=== PATIENT | male | born 1955 | race Caucasian/White ===

== ENCOUNTER 2023-08-24 12:54 | Inpatient (IN) | payer MEDICARE, MEDICAID, SELFPAY ==
[2023-08-24] VITALS (8 sets, daily range): BP systolic 130–151; BP diastolic 62–90; PULSE 65–90; RESP 17–19; TEMP 36.3–37; O2SAT 96–100; BMI 24.4; BMI 21.9
--- NOTE | 2023-08-24 13:00 | ECG_ITS ---
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 Measurements Intervals Armstrong Rate: 85 P: 69 IA: 159 QRS: -23 QRSD: 93 T: 70 QT: 344 QTc: 410 Interpretive Statements SINUS RHYTHM POSSIBLE LEFT ATRIAL ENLARGEMENT [-0.1mV P-WAVE IN V1/V2] SEPTAL MYOCARDIAL INFARCTION , OF INDETERMINATE AGE [40+ ms Q WAVE IN V1/V2] No previous ECG available for comparison Electronically Signed On 08-24-2023 13:17:09 ADVENTURE GUIDE by Noe Sales M.D. [email or web address]
--- NOTE | 2023-08-24 13:00 | XRR_ITS ---
PROCEDURE INFORMATION: Exam: XR Chest Exam date and time: 08/24/2023 1:11 PM Age: 68 years old Clinical indication: Cough; Additional info: Dyspnea/cough TECHNIQUE: Imaging protocol: Radiologic exam of the chest. Views: 1 view. COMPARISON: No relevant prior studies available. FINDINGS: Lungs: Unremarkable. No consolidation. Pleural spaces: Unremarkable. No pleural effusion. No pneumothorax. Heart/Mediastinum: Unremarkable. No cardiomegaly. Bones/joints: Unremarkable. XR/XR chest 1V portable [id number] IMPRESSION: No acute findings.
--- NOTE | 2023-08-24 13:17 | W.ED.EXTPRO ---
HPI - Extremity Problem General: Chief complaint: Extremity Problem,Nontraumatic Stated complaint: possible infection on feet Time Seen by Provider: 08/24/23 12:59 Source: patient Mode of arrival: ambulatory History of Present Illness: 68-year-old male with a history of diabetes mellitus and previous and trans metatarsal amputation of the right foot which was recent presents emergency room with a left third toe ulceration with foul-smelling drainage and gangrenous appearing changes. This he had his previous amputation at [facility] he was not able to get a hold of the doctor there and presented here. He also has open ulcers on the sole of the toe and on his right great foot. Unable to bear weight on the left foot due to discomfort. Denies chest pain or shortness of breath MD Complaint: extremity pain Onset (ago): day(s) Pain Consistency: constant Location: left and toe Relieving factors: immobilization and elevation Exacerbating factors: weight bearing Associated symptoms: Deny chest pain, fever(s) or rash Context: recent surgery/procedure Review of Systems Const: Reports: fatigue and malaise; Denies: fever(s) or chills Card: Denies: chest pain Resp: Denies: dyspnea GI: Denies: abdominal pain, nausea or vomiting : Denies: dysuria, urinary frequency or urinary urgency Musc: Denies: neck pain or back pain Skin/Breast: Denies: rash PFSH ED PFSH: Medical History Diabetes Partial nontraumatic amputation of foot R trans metatarsal amputation Physical Exam Const: GENERAL APPEARANCE: cooperative and comfortable ORIENTATION/CONSCIOUSNESS: Yes awake, Yes oriented to person, Yes oriented to place and Yes oriented to time HENMT: COMMON NORMALS: normocephalic, atraumatic and hearing grossly normal bilaterally HEAD & SCALP: normocephalic and atraumatic Resp: COMMON NORMALS: normal respiratory effort, No retractions, No use of accessory muscles and clear to auscultation bilaterally AUSCULTATION: clear to auscultation bilaterally Cardio: COMMON NORMALS: regular rate, regular rhythm and No murmurs present (Cardio) RATE: regular rate RHYTHM: regular rhythm GI: COMMON NORMALS: Soft to palpation and No hepatosplenomegaly present AUSCULTATION: Yes normoactive bowel sounds PALPATION: Yes Soft to palpation, No Tenderness to palpation present (GI), No Guarding due to palpation present (GI) and Yes No hepatosplenomegaly present Extremity: OTHER: Right foot with ulcers on the third toe the great toe Evicel with low-grade tumor in the second and third toes drainage with palpation gangrenous discoloration and apparent subcutaneous gas in the third toe Neuro: SENSORIUM/ORIENTATION: Yes oriented to person, Yes oriented to place and Yes oriented to time Skin: COMMON NORMALS: no rashes or lesions noted GENERAL SKIN EXAM: no rashes or lesions noted Course Vital Signs: Vital signs: Vital Signs Temperature 98.2 F 08/24/23 12:56 Pulse Rate 90 08/24/23 13:16 Respiratory Rate 18 08/24/23 13:16 Blood Pressure 151/90 08/24/23 13:16 Pulse Oximetry 99 08/24/23 13:16 Oxygen Delivery Me thod Room Air 08/24/23 13:16 MDM - Extremity (Nontraumatic) Medical Decision Making Gaseous changes of the third toe with some erosive changes on the third and fourth toes and somewhat on the second appear to be combination of chronic and acute. Discussed with podiatry they will come and see the patient at the bedside possible surgical debridement tomorrow. Admit to hospitalist. Medical Records I reviewed the patient's medical records. Lab Data I reviewed the patient's lab results. 08/24/23 14:05 08/24/23 14:05 Radiology Impressions Chest X-Ray 08/24/23 13:00 IMPRESSION: No acute findings. Foot X-Ray 08/24/23 13:34 IMPRESSION: No acute findings. ADDENDUM: 08/24/23 1422 The bones have a somewhat demineralized appearance particularly in the 3rd metatarsal head on the oblique view but no definite bony destruction is evident. There is a soft tissue gas bubble seen arm the dorsum of the forefoot on the lateral view. Laboratory Results WBC 10.28 10^3/uL (3.29-11.43) 08/24/23 14:05 RBC 4.37 10^6/uL (3.85-5.65) 08/24/23 14:05 Hgb 12.80 g/dL (11.27-16.99) 08/24/23 14:05 Hct 37.7 % (37-53) 08/24/23 14:05 MCV 86.3 fl (82-101) 08/24/23 14:05 MCH 29.3 pg (27-33) 08/24/23 14:05 MCHC 34.0 g/dL (30-55) 08/24/23 14:05 RDW 11.7 % (12.1-15.1) L 08/24/23 14:05 Plt Count 273 10^3/cmm (157-399) 08/24/23 14:05 MPV 9.3 fL (7.4-10.4) 08/24/23 14:05 Neut % (Auto) 83.8 % 08/24/23 14:05 Lymph % (Auto) 5.9 % 08/24/23 14:05 [place] % (Auto) 9.0 % 08/24/23 14:05 Eos % (Auto) 0.5 % 08/24/23 14:05 Baso % (Auto) 0.4 % 08/24/23 14:05 Neut # (Auto) 8.61 10^3/uL (1.8-7.7) H 08/24/23 14:05 Lymph # (Auto) 0.6 10^3/uL (0.8-4.8) L 08/24/23 14:05 [place] # (Auto) 0.9 10^3/uL (0.2-0.9) 08/24/23 14:05 Eos # (Auto) 0.1 10^3/uL (0.0-0.8) 08/24/23 14:05 Baso # (Auto) 0.0 10^3/uL (0.0-0.1) 08/24/23 14:05 Nucleated RBC % (auto) 0 % 08/24/23 14:05 Nucleated RBCs # 0.0 /100WBC 08/24/23 14:05 Sodium 129 mmol/L (136-145) L 08/24/23 14:05 Potassium 4.5 mmol/L (3.5-5.1) 08/24/23 14:05 Chloride 92 mmol/L (98-107) L 08/24/23 14:05 Carbon Dioxide 24 mmol/L (22-29) 08/24/23 14:05 Anion Gap 17.5 (5-19) 08/24/23 14:05 BUN 17 mg/dL (8-23) 08/24/23 14:05 Creatinine 0.9 mg/dL (0.7-1.2) 08/24/23 14:05 GFR Calculation 83.7 mL/min (90-130) L 08/24/23 14:05 Glucose 228 mg/dL (65-115) H 08/24/23 14:05 Calculated Osmolality 277 mOsm/kg (285-295) L 08/24/23 14:05 Lactic Acid 1.3 mmol/L (0.5-2.2) 08/24/23 14:05 Calcium 9.2 mg/dL (8.5-10.5) 08/24/23 14:05 Total Bilirubin 0.8 mg/dL (0.15-1.2) 08/24/23 14:05 AST 20 U/L (0-40) 08/24/23 14:05 ALT 15 U/L (0-41) 08/24/23 14:05 Alkaline Phosphatase 136 U/L (40-130) H 08/24/23 14:05 Total Protein 7.9 g/dL (6.6-8.7) 08/24/23 14:05 Albumin 3.5 g/dL (3.5-5.2) 08/24/23 14:05 Globulin 4.4 g/dL (1.3-4.6) 08/24/23 14:05 All radiology interpretation(s) finalized by discharge Discharge Plan Discharge Patient Disposition: Admitted As Inpatient Clinical Impression: Diabetic foot ulcer with osteomyelitis, Gangrenous toe Condition: Stable Referrals: Alex Ferris FNP [Family Provider] - Coding Level of Care Code ED Creative Services Specialist for Deanna Wilson
--- NOTE | 2023-08-24 13:34 | XRR_ITS ---
PROCEDURE INFORMATION: Exam: XR Right Foot Exam date and time: 08/24/2023 1:45 PM Age: 68 years old Clinical indication: Pain; Right; Prior surgery; Surgery date: 1-6 months; Surgery type: RT. Foot; Additional info: S/P transmetatarsal amputation TECHNIQUE: Imaging protocol: Radiologic exam of the right foot. Views: 3 or more views. COMPARISON: No relevant prior studies available. FINDINGS: Bones/joints: The patient has had transmetatarsal amputations at the distal 2/3 level. Acute a krishnan stumps are unremarkable in appearance. No abnormal soft tissue changes are evident. Remainder of the foot is unremarkable. Soft tissues: See Bones/joints finding. XR/XR foot RT min 3V* [id number] IMPRESSION: Unremarkable postoperative right foot.
--- NOTE | 2023-08-24 13:34 | XRR_ITS ---
PROCEDURE INFORMATION: Exam: XR Left Foot Exam date and time: 08/24/2023 1:43 PM Age: 68 years old Clinical indication: Pain; Foot; Left; Additional info: Gangrene/diabetic foot ulcer TECHNIQUE: Imaging protocol: Radiologic exam of the left foot. Views: 3 or more views. COMPARISON: No relevant prior studies available. FINDINGS: Bones/joints: No evidence for osteomyelitis or other acute osseous or joint abnormality. Joint spaces are unremarkable. Soft tissues: Normal. XR/XR foot LT min 3V* [id number] IMPRESSION: No acute findings.
[2023-08-24 14:16] LABS: Basophils % 0.4 %; Eosinophils # 0.1 10^3/uL (0.0-0.8); Eosinophils % 0.5 %; Hematocrit 37.7 % (37-53); Lymphocytes # 0.6 10^3/uL (0.8-4.8); Lymphocytes % 5.9 %; Mean Corpuscular Hemoglobin 29.3 pg (27-33); Mean Corpuscular Volume 86.3 fl (82-101); Mean Platelet Volume 9.3 fL (7.4-10.4); Monocytes # 0.9 10^3/uL (0.2-0.9); Neutrophils # 8.61 10^3/uL (1.8-7.7); Neutrophils % 83.8 %; Nucleated Red Blood Cells % 0 %; Platelet Count 273 10^3/cmm (157-399); Red Blood Count 4.37 10^6/uL (3.85-5.65); Red Cell Distribution Width 11.7 % (12.1-15.1); White Blood Count 10.28 10^3/uL (3.29-11.43)
[2023-08-24] MEDS: vancomycin 1,000 MG in sodium chloride 0.9% 250 ML 250 MG IV (14:33)
--- NOTE | 2023-08-24 14:35 | PM.CONSULT ---
Providers/Reason For Consult Consulting Physician/Specialty*: Anthony Fajardo D.P.M. Reason for Consult*: Gangrene left foot History of Present Illness History of Present Illness David Honeycutt is a 68 year old diabetic male presents to the emergency room with gangrene left foot. He reports worsening of his left foot infection starting on August 18, he became more concerned today and his sister brought him to the emergency department due to redness and foul odor. Patient has a extensive history of diabetic foot infections. He had a recent hospitalization at [facility] in [facility] and was discharged home last week after a right transmetatarsal amputation secondary to diabetic foot infection. He reports his first toe amputation was on the right foot and this occurred in 2017. Patient endorses significant peripheral neuropathy, endorses numbness at both feet. He states that his diabetes is well-controlled, per his report his last A1c was recent and it was 6.9. He has had hospitalizations at [facility] and [facility] within the past month. Will require records request from both facilities. He is unsure of vascular studies being performed. Patient denies tobacco use, states that last time he smoked was in 1970s. Patient denies any subjective nausea, vomiting, fever, chills, shortness of breath or chest pain. Review of Systems General: Reports: 10 or more systems reviewed and unremarkable except in HPI and below Const: Denies: fever(s) or chills Eyes: Denies: change in vision Card: Denies: chest pain or palpitations Resp: Denies: dyspnea or productive cough GI: Denies: abdominal pain, nausea or vomiting : Denies: flank pain Musc: Reports: extremity swelling, joint stiffness and deformity Skin/Breast: Reports: erythema, sores, changes in skin color, dry skin, nail changes and change in hair Neuro: Reports: numbness in extremities, sensory changes and difficulty walking Psych: Denies: suicidal ideation Endo: Denies: change in body appearance Ben/Lymph: Denies: tender lymph nodes Medications/Allergies Allergies Allergy/AdvReac Type Severity Reaction Status Date / Time clindamycin Allergy Unknown Verified 08/24/23 13:11 soy Allergy Unknown Verified 08/24/23 13:07 PFSH Acute PFSH: Medical History Diabetes Partial nontraumatic amputation of foot R trans metatarsal amputation Social History Smoking and tobacco/nicotine status: never used tobacco/nicotine Alcohol intake: never Substance/Drug Use: current Substance/Drug use type: Marijuana Vitals/I&O/Wt Last Vital Signs Temp 98.2 F 08/24/23 12:56 Pulse 90 08/24/23 13:16 Resp 18 08/24/23 13:16 BP 151/90 08/24/23 13:16 Pulse Ox 99 08/24/23 13:16 O2 Del Method Room Air 08/24/23 13:16 Weight last 48 hrs Weight 180 lb Physical Exam Narrative: GENERAL: Patient is alert and oriented ?3 and in no acute distress. The following is a focused bilateral lower extremity exam. His sister is bedside. VASCULAR: Dorsalis pedis palpable bilaterally. Posterior tibial arteries palpable. Capillary refill less than 5 seconds to the left great toe. Capillary refill less than 5 seconds to the transmetatarsal amputation stump right foot. Calf is supple and nontender proximally and distally. Left foot edema. Increased warmth to the left forefoot. NEUROLOGICAL: Protective sensation intact 0/10 sites, tested with [place] monofilament to bilateral feet. DERMATOLOGICAL: Full-thickness wound probes left plantar forefoot subfourth metatarsal head. The wound probes into the left third intermetatarsal space and able to tent skin dorsally. Gangrenous changes with black eschar and purulent drainage to the left third toe. Erythema to the left forefoot streaking to the level of the left midfoot dorsally. No proximal lymphangitic streaking at the level of the ankle or left leg. Sutures intact from transmetatarsal potation of the right foot without surrounding erythema, warmth or purulent drainage. MUSCULOSKELETAL: Status post right transmetatarsal amputation. No pain to palpation left foot secondary to neuropathy. Able to actively dorsiflex and plantarflex left ankle pain-free without guarding. CARDIOVASCULAR: S1, S2, normal rate, normal rhythm. Dorsalis pedis and posterior tibial arteries palpable. LUNGS: Clear to auscltation, no use of acessory muscles, no crackles or wheezes. To bone Data 08/24/23 14:05 08/24/23 14:05 Micro: Microbiology 08/24/23 14:05 Blood Culture - Preliminary Blood SPECIMEN COLLECTED 08/24/23 14:05 Blood Culture - Preliminary Blood SPECIMEN COLLECTED A&P Assessment and plan (1) Gangrene of left foot: (2) Diabetic foot ulcer with osteomyelitis: Per my interpretation left foot 3 view shows erosive changes at the head of the left fourth metatarsal as well as at the proximal phalanx base of the left third toe, there is soft tissue emphysema at the left third intermetatarsal space, on the lateral view you can appreciate soft tissue emphysema tracking to the level of mid diaphysis of the metatarsals left foot. (3) Diabetic peripheral neuropathy associated with type 2 diabetes mellitus: (4) Status post transmetatarsal amputation of right foot: (5) Non-pressure chronic ulcer of other part of left foot with necrosis of bone: Procedure note: After obtaining verbal consent from patient the left foot was windowed with sterile drapes and the entire left foot was scrubbed with chlorhexidine scrub. Attention was directed to the left plantar foot where a full-thickness wound was appreciated that measured 1 cm x 1.5 cm x 3.5 cm deep was able to track dorsally without resistance utilizing hemostats and tenting of the dorsum of the foot integument at the third and metatarsal space, this corresponded to the area of soft tissue emphysema seen on x-ray both at the lateral view and the AP view. An incision with a #15 blade at the dorsal aspect of the left third intermetatarsal space was performed and the incision was irrigated with copious amounts of sterile saline solution. Sharp debridement was performed down to fourth metatarsal bone cortex, at this point aerobic and anaerobic cultures were taken of the left foot down to bone. These will be sent to microbiology for Gram stain, culture and sensitivity to further guide long-term antibiotic therapy. Gauze drain was left in place to the left foot followed by Betadine wet-to-dry dressing. Patient tolerated the procedure well. (6) Cellulitis of left foot: Plan The treatment plan for a 68-year-old diabetic male presenting with gangrene in the left foot, osteomyelitis, and soft tissue emphysema includes: Hospital Admission: The patient has been admitted to the hospital service for close monitoring and treatment. Empiric IV Antibiotics: Initiation of empiric intravenous antibiotics. Bedside Debridement: Debridement of the affected foot down to the bone to remove necrotic and infected tissue. This helps in reducing the load of infection and preparing the foot for potential surgery. Wound Cultures: Postdebridement obtained aerobic and anaerobic cultures from the wound to identify specific pathogens and guide antibiotic therapy more precisely. NPO Status: Patient to be n.p.o. at midnight. Surgical Intervention: A transmetatarsal amputation of the left foot is planned for 7 AM tomorrow morning 08/25/2023. Patient will require potential extended hospital stay in order to achieve a level of soft tissue improvement that would be amenable to primary delayed closure during this hospitalization. Will monitor closely daily and proceed with delayed closure once soft tissue is improved, should he fail to improve may require wound VAC versus higher level of amputation. Would plan for PICC line and retirement placement after this hospitalization. Coding Level of Care Code Acute Code for [facility] Fwd Diagnoses Gangrene of left foot I96 Diabetic foot ulcer with osteomyelitis E11.621; E11.69; L97.509; M86.9 Diabetic peripheral neuropathy associated with type 2 diabetes mellitus E11.42 Status post transmetatarsal amputation of right foot Z89.431 Non-pressure chronic ulcer of other part of left foot with necrosis of bone L97.524 Cellulitis of left foot L03.116 Comment CPT for consult and 33254 for procedure noted above.
[2023-08-24 14:38] LABS: Alanine Aminotransferase 15 U/L (0-41); Albumin Level 3.5 g/dL (3.5-5.2); Alkaline Phosphatase 136 U/L (40-130); Anion Gap 17.5 (5-19); Aspartate Amino Transferase 20 U/L (0-40); Blood Urea Nitrogen 17 mg/dL (8-23); Calcium 9.2 mg/dL (8.5-10.5); Carbon Dioxide 24 mmol/L (22-29); Chloride 92 mmol/L (98-107); Creatinine Clr Calc Pharmacy 86.7984; Globulin 4.4 g/dL (1.3-4.6); Glomerular Filtration Rate 83.7 mL/min (90-130); Glucose 228 mg/dL (65-115); Osmolality Calculated 277 mOsm/kg (285-295); Potassium 4.5 mmol/L (3.5-5.1); Sodium 129 mmol/L (136-145); Total Bilirubin 0.8 mg/dL (0.15-1.2); Total Protein 7.9 g/dL (6.6-8.7)
[2023-08-24 15:04] LABS: Lactic Sepsis W/Reflex 1.3 mmol/L (0.5-2.2)
--- NOTE | 2023-08-24 15:28 | USR_ITS ---
PROCEDURE INFORMATION: Exam: US Duplex Bilateral Lower Extremity Arteries Exam date and time: 08/24/2023 3:52 PM Age: 68 years old Clinical indication: Other: Ulcer; Additional info: Diabetic foot TECHNIQUE: Imaging protocol: Real-time ultrasound scan of the arteries of the bilateral lower extremities with 2-D gill scale, color Doppler flow and spectral waveform analysis. Images documented and saved. COMPARISON: CR (LOW EXM, ) 08/24/2023 1:45 PM FINDINGS: Right common femoral artery: No occlusion or significant stenosis. Normal waveform. Right superficial femoral artery: No occlusion or significant stenosis. Normal waveform. Right popliteal artery: No occlusion or significant stenosis. Normal waveform. Right calf/foot arteries: No occlusion or significant stenosis in the visualized arteries. Normal waveforms. Dorsalis pedis artery is patent. Left common femoral artery: No occlusion or significant stenosis. Normal waveform. Left superficial femoral artery: No occlusion or significant stenosis. Normal waveform. Left popliteal artery: No occlusion or significant stenosis. Normal waveform. Left calf/foot arteries: No occlusion or significant stenosis in the visualized arteries. Normal waveforms. Dorsalis pedis artery is patent. US/CV arterial duplex [facility] [id number] IMPRESSION: No stenosis or occlusion.
--- NOTE | 2023-08-24 15:28 | P.HP_ITS ---
Providers/Chief Complaint Chief Complaint: possible infection on feet History of Present Illness David Honeycutt is a 68 year old male with a past medical history of noninsulin-dependent type 2 diabetes mellitus, history of diabetic neuropathy, history of recurrent diabetic foot infections, history of right transmetatarsal amputation, recent recent history of hospitalization to [facility] for left foot diabetic foot infection requiring surgical debridement, on IV antibiotics for a week, discharged home, he denies any bacteremia, denies involvement of the bone, he received IV antibiotics for a week he tells me, he tells me that since he getting home his first and second digit started to look more swollen, more red more erythematous, now they are both dusky in appearance, and is starting to develop a open ulceration left foot, plantar aspect, and under the transmetatarsal's, no fevers, chills, nausea, vomiting, abdominal pain, no chest pain, no palpitations, Review of Systems Const: Denies: fever(s) Eyes: Denies: change in vision Card: Denies: chest pain Resp: Denies: dyspnea GI: Denies: abdominal pain Medications/Allergies Allergies Allergy/AdvReac Type Severity Reaction Status Date / Time clindamycin Allergy Unknown Verified 08/24/23 13:11 soy Allergy Unknown Verified 08/24/23 13:07 PFSH Acute PFSH: Medical History Diabetes Partial nontraumatic amputation of foot R trans metatarsal amputation Social History (Updated 08/24/23 @ 15:31 by Louie Jolly MD) Smoking and tobacco/nicotine status: never used tobacco/nicotine Alcohol intake: never Substance/Drug Use: current Substance/Drug use type: Marijuana Vitals/I&O/Wt Last Vital Signs Temp 98.2 F 08/24/23 12:56 Pulse 75 08/24/23 15:18 Resp 18 08/24/23 15:18 BP 151/90 08/24/23 15:18 Pulse Ox 99 08/24/23 15:18 O2 Del Method Room Air 08/24/23 15:18 Weight last 48 hrs Weight 81.647 kg Physical Exam Const: COMMON NORMALS: no acute distress and patient oriented x3 HENMT: COMMON NORMALS: normocephalic HEAD & SCALP: normocephalic Eye: COMMON NORMALS: Equal, round and reactive pupils present and EOMs intact bilaterally Neck/C-Spine: COMMON NORMALS: full ROM Lymph: LYMPHATIC: no lymphadenopathy noted Resp: COMMON NORMALS: normal respiratory effort, No retractions, No use of accessory muscles and clear to auscultation bilaterally AUSCULTATION: clear to auscultation bilaterally Cardio: COMMON NORMALS: regular rate, regular rhythm, S1 normal heart sound present and S2 normal heart sound present RATE: regular rate RHYTHM: reg ular rhythm HEART SOUNDS: S1 normal heart sound present and S2 normal heart sound present GI: COMMON NORMALS: Normal to inspection, nondistended, normoactive bowel sounds present, Soft to palpation and non-tender : COMMON NORMALS: Yes no CVA tenderness Extremity: COMMON NORMALS: no calf tenderness and no pedal edema OTHER: Right foot transmetatarsal amputation, left foot second and third digit erythema, swelling, with dark dusky appearance, at the tips, plantar aspect, open area of diabetic ulcer drainage measuring 1 x 1 cm, with tunneling Neuro: COMMON NORMALS: patient oriented x3, CN's II-XII intact bilaterally, moves all extremities and no focal motor deficits Psych: COMMON NORMALS: mental status grossly normal Data 08/24/23 14:05 08/24/23 14:05 Micro: Microbiology 08/24/23 14:05 Blood Culture - Preliminary Blood SPECIMEN COLLECTED 08/24/23 14:05 Blood Culture - Preliminary Blood SPECIMEN COLLECTED A&P Assessment and plan (1) Cellulitis of left foot: (2) Non-pressure chronic ulcer of other part of left foot with necrosis of bone: (3) Status post transmetatarsal amputation of right foot: (4) Diabetic peripheral neuropathy associated with type 2 diabetes mellitus: (5) Gangrene of left foot: (6) Diabetic foot ulcer with osteomyelitis: (7) Gangrenous toe: (8) Partial nontraumatic amputation of foot: (9) Diabetes: Plan Left foot diabetic foot infection ? Status post bedside debridement by Dr. Fajardo, currently wrapped, ? Plan on surgical intervention tomorrow morning, n.p.o. midnight, for now continue clear liquids, ? Vancomycin, Zosyn, ? CRP, Pro-Kaden, sed rate, ? Blood cultures, ? Continue to monitor clinically, ? Full code, ? Lovenox for DVT prophylaxis, Type 2 diabetes mellitus: Low-dose sliding scale ABIs, History of EGD, found to have a large gastric polyp, unfortunately it was unable to be removed due to equipment failure, he has a follow-up appointment for removal and near future Attestations Medical Necessity Statement*: Patient requires hospitalization for left foot diabetic foot infection, with evidence of gas gangrene, requiring surgical intervention IV antibiotics, type 2 diabetes mellitus, inpatient, greater than 2 midnights Diagnoses Cellulitis of left foot L03.116 Non-pressure chronic ulcer of other part of left foot with necrosis of bone L97.524 Status post transmetatarsal amputation of right foot Z89.431 Diabetic peripheral neuropathy associated with type 2 diabetes mellitus E11.42 Gangrene of left foot I96 Diabetic foot ulcer with osteomyelitis E11.621; E11.69; L97.509; M86.9 Gangrenous toe I96 Partial nontraumatic amputation of foot Z89.439 Diabetes E11.9
[2023-08-24 15:51] LABS: INR 1.14 (0.8-1.2)
[2023-08-24 16:06] LABS: NT Pro B Type Natriuretic Pept 504 pg/mL (0-125); Procalcitonin 0.18 ng/mL (0-0.5); Thyroid Stimulating Hormone 3.89 uIU/mL (0.27-4.20)
[2023-08-24 16:16] LABS: C Reactive Protein 236.5 mg/L (0.0-4.9)
[2023-08-24 16:55] LABS: Chol HDL Ratio 4.83 mg/dL (1.0-5.00); Cholesterol 111 mg/dL (0-200); HDL Cholesterol 23 mg/dL (60-100); LDL Cholesterol Calculated 64 mg/dL (50-129); LDL HDL Ratio 2.78 RATIO (0.00-3.22); Triglycerides 121 mg/dL (0-150)
[2023-08-24 17:02] LABS: Estmated Average Glucose 148; Hemoglobin A1C 6.8 % (4.0-6.0)
[2023-08-24 17:12] LABS: Glucose Point of Care 189 mg/dL (70-110)
[2023-08-24] MEDS: pantoprazole 40 mg SDV IVP (17:37)
[2023-08-24] MEDS: insulin lispro 100 unit/1 mL SUBCUT (17:38)
[2023-08-24] MEDS: piperacillin-tazobactam 3.375 GM in sodium chloride 0.9% (plus) 50 ML IV (17:38)
[2023-08-24] MEDS: enoxaparin 40 mg/0.4 mL Syringe SUBCUT (17:39)
[2023-08-24 20:32] LABS: Glucose Point of Care 150 mg/dL (70-110)
[2023-08-25] VITALS (17 sets, daily range): BP systolic 85–124; BP diastolic 45–71; PULSE 50–79; RESP 12–19; TEMP 36.1–36.8; O2SAT 95–100; BMI 21.9
[2023-08-25] MEDS: vancomycin 1,250 MG/250 ML PIGGYBACK 200 MG IV ×2 (00:37→13:17)
[2023-08-25] MEDS: piperacillin-tazobactam 3.375 GM in sodium chloride 0.9% (plus) 50 ML IV ×3 (00:39→19:55)
[2023-08-25 05:50] LABS: Basophils # 0.1 10^3/uL (0.0-0.1); Basophils % 0.7 %; Eosinophils # 0.1 10^3/uL (0.0-0.8); Eosinophils % 1.2 %; Hematocrit 35.2 % (37-53); Lymphocytes # 0.7 10^3/uL (0.8-4.8); Lymphocytes % 7.5 %; Mean Corpuscular HGB Conc 32.7 g/dL (30-55); Mean Corpuscular Hemoglobin 29.2 pg (27-33); Mean Corpuscular Volume 89.3 fl (82-101); Mean Platelet Volume 9.4 fL (7.4-10.4); Monocytes % 10.3 %; Neutrophils # 7.88 10^3/uL (1.8-7.7); Neutrophils % 79.9 %; Nucleated Red Blood Cells % 0 %; Platelet Count 249 10^3/cmm (157-399); Red Blood Count 3.94 10^6/uL (3.85-5.65); Red Cell Distribution Width 11.8 % (12.1-15.1); White Blood Count 9.87 10^3/uL (3.29-11.43)
[2023-08-25 06:07] LABS: Alanine Aminotransferase 18 U/L (0-41); Albumin Level 2.8 g/dL (3.5-5.2); Alkaline Phosphatase 112 U/L (40-130); Aspartate Amino Transferase 27 U/L (0-40); Blood Urea Nitrogen 16 mg/dL (8-23); Calcium 8.7 mg/dL (8.5-10.5); Carbon Dioxide 21 mmol/L (22-29); Chloride 96 mmol/L (98-107); Globulin 4.1 g/dL (1.3-4.6); Glomerular Filtration Rate 111.8 mL/min (90-130); Glucose 139 mg/dL (65-115); Magnesium 1.9 mg/dL (1.7-2.3); Osmolality Calculated 275 mOsm/kg (285-295); Phosphorus 2.9 mg/dL (2.5-4.5); Sodium 131 mmol/L (136-145); Total Bilirubin 0.6 mg/dL (0.15-1.2); Total Protein 6.9 g/dL (6.6-8.7)
--- NOTE | 2023-08-25 07:34 | P.HPUD_ITS ---
Surgery/Procedure H&P Update DATE OF PROCEDURE: August 25, 2023 DATE H&P PERFORMED: 08/24/23 H&P UPDATE INFORMATION: I have reviewed H&P completed within last 30 days, I have examined patient prior to procedure, No changes to prior documentation and H&P is in [facility] EMR on date indicated PREOP DIAGNOSIS: Gangrene left foot PLANNED PROCEDURE: Operation Date: 08/25/23 07:20 Proposed Procedures p Amputation Transmetatarsal(Left) - Anthony Fajardo DPM
[2023-08-25 07:45] LABS: Glucose Point of Care 149 mg/dL (70-110)
--- NOTE | 2023-08-25 07:50 | PM.OP ---
Operative Report Date of procedure: August 25, 2023 Pre-op diagnosis: Gangrene left foot Post-op diagnosis: Gangrene left foot Post-op findings: Devitalized soft tissue down to and including bone left foot with gangrenous changes of the left third toe Procedure done: Left transmetatarsal amputation. CPT code 51558 Implants: 3-0 nylon. Specimens removed/disposition: Bone left fourth metatarsal sent to microbiology for Gram stain, culture and sensitivity. Pathology: Left forefoot sent to pathology for permanent Surgeon: Anthony Fajardo DPM Cafeteria Table Attendant: Lesa Crawford Estimated blood loss: 25 17 IV fluids: 0 Urine output: 0 Complications: None Findings: Devitalized soft tissue and bone left forefoot Brief History: Mr. Honeycutt is a 68-year-old diabetic male presents with gangrenous changes to the left forefoot to the emergency department on 08/24/2023. On x-ray of left foot 3 views there is soft tissue emphysema at the level of the mid metatarsal diaphysis at the dorsum of the left foot with lytic changes of the fourth metatarsal head and third proximal phalanx base. He underwent incision down to bone cortex in the emergency department exposing gas producing organisms on 08/24/2023. He was held n.p.o. at midnight in preparation for left transmetatarsal amputation in efforts for source control. Patient is aware that he may require further debridement and even higher level amputation pending his response to surgical and medical treatments. I reviewed at length with the patient, the risks, potential complications, benefits, alternatives, expectations, and typical outcomes associated with the surgery. The risks and potential complications were explained in detail, including but not limited to infection, wound dehiscence or soft tissue complications, bleeding and hematoma, chronic edema, neuritis or nerve damage producing numbness or chronic pain, CRPS, failure to relieve pain or worsening pain, thick / painful / unsightly scar, limited motion / stiffness, malposition, delayed union, malunion, or nonunion, fracture, reaction to implants, anesthetic complications, venous thromboembolism, and deformity recurrence. I discussed the notion of no regrets with the patient as it pertains to complications and outcomes. The patient seemed to understand the nature of the proposed care and required convalescence. They asked appropriate questions, answered to their satisfaction. They are aware no guarantees can be made as to a satisfactory outcome and they understand there may be other possible unforeseen complications or outcomes not listed here that will be treated accordingly if they arise. There were no written or implied guarantees given to the patient. They gave informed consent to proceed. Procedure: Under mild sedation the patient was brought to the operating room and remained on the gurney in supine position. Timeout was performed. Anesthesia was then administered by the anesthesia service. Local anesthesia was injected by myself consisting of 30 cc of 1% lidocaine plain in a left ankle block fashion. Well-padded pneumatic tourniquet applied to the left ankle. The left lower extremity was scrubbed, prepped and draped utilizing normal aseptic technique. Left foot was elevated and the tourniquet inflated to 250 mmHg. Attention was directed to the left foot where gangrenous changes were appreciated at the left third toe with black eschar, deep cellulitis to the left second toe and cellulitis extending to the level of the left midfoot. Full-thickness wound at the plantar aspect of the left forefoot fourth metatarsal head probe directly to bone and within the interspace of the second intermetatarsal space dorsally through and through the foot. A planned incision was performed for transmetatarsal amputation this was a fish[place] incision maintaining dorsal and plantar flaps. Incision down to bone was carried out and a transmetatarsal amputation was performed utilizing a sagittal saw from medial to lateral. Sharp treatment was performed of all devitalized soft tissue followed by irrigation of 3 L of saline. Patient will require close monitoring and continued empiric IV antibiotics to allow soft tissue quality improvement for potential delayed closure. Skin retention sutures of the dorsal and plantar flap at the transmetatarsal amputation site for loose and close approximation. Quarter inch Furman drain left within the amputation, dressing consisting of saline wet-to-dry followed by sterile 4 x 4's, ABD pad, Kerlix and Coban to the left foot. Tourniquet was deflated. Following a period of postoperative monitoring patient will be transferred back to the floor to continue empiric IV antibiotics, may narrow once cultures yield further information.
[2023-08-25] MEDS: lidocaine 1% INJ 10 mL (per mL) INJECTION (09:12)
--- NOTE | 2023-08-25 09:33 | ANES.PREANE2 ---
Pre-Anesthetic Assessment Height/Weight: Height 1.88 m Weight 77.564 kg Temp Pulse Resp BP Pulse Ox O2 Del Method 97.7 F 79 17 117/65 98 Room Air 08/25/23 07:00 08/25/23 07:00 08/25/23 07:00 08/25/23 07:00 08/25/23 07:00 08/25/23 07:00 Preop Diagnosis: Gangrene left foot Operation Date: 08/25/23 07:20 Proposed Procedures p Amputation Transmetatarsal(Left) - Anthony Fajardo DPM Familial anesthetic complications: none Was Beta Phillip taken within 24 hours: N/A Was Clonidine taken within 24 hours: N/A Last intake: Intake Last Liquid Date 08/24/23 Last Liquid Time 23:30 Social No alcohol and No tobacco Exam alert, oriented x 3, clear to auscultation bilaterally and regular rate & rhythm Airway Submandibular: within normal limits Cervical ROM: within normal limits Mallampati: Class I Dentition: chipped CV/HEM Anemia Metabolic Diabetes Mellitus Neuropsych Neuropathy Anesthetic Plan ASA status: 3 Anesthesia: MAC Medications/Allergies Home Medications Medication Instructions Recorded Confirmed Last Taken Type cephalexin 500 mg capsule 500 mg PO QID 08/25/23 08/25/23 08/24/23 History clobetasol 0.05 % topical cream 1 applic topical BID 08/25/23 08/25/23 Unknown History dapagliflozin propanediol 10 mg 10 mg PO QAM 08/25/23 08/25/23 08/24/23 History tablet (Farxiga) glipizide 10 mg tablet 10 mg PO BID 08/25/23 08/25/23 08/24/23 History metformin 500 mg tablet,extended 1,000 mg PO DAILY 08/25/23 08/25/23 08/24/23 History release 24 hr Allergies Allergy/AdvReac Type Severity Reaction Status Date / Time clindamycin Allergy Unknown Verified 08/24/23 13:11 soy Allergy Unknown Verified 08/24/23 13:07 Current Medications Generic Name Dose Route Start Last Admin Trade Name Freq PRN Reason Stop Dose Admin Enoxaparin Sodium 40 mg 08/24/23 17:30 08/24/23 17:39 Enoxaparin 40 Mg/0.4 Ml Syringe SUBCUT 40 mg Q24H GUILLERMO Administration Piperacillin Sod/Tazobactam 50 mls @ 12.5 mls/hr 08/24/23 17:00 08/25/23 03:27 Sod 3.375 gm/ Sodium Chloride IV 12.5 mls/hr Q8H GUILLERMO Infusion Protocol As Directed Vancomycin/PEG/NADA/Lysine/Water 1,250 mg in 250 mls @ 200 mls/hr 08/25/23 01:30 08/25/23 02:10 Vancocin IV Infused Q12H GUILLERMO Infusion Insulin Human Lispro 0 unit 08/24/23 18:00 08/24/23 17:38 Insulin Lispro 100 Unit/1 Ml SUBCUT 4 unit TIDWM GUILLERMO Administration Protocol Pantoprazole Sodium 40 mg 08/24/23 17:30 08/24/23 17:37 Pantoprazole 40 Mg Sdv IVP 40 mg Q24H GUILLERMO Administration PFSH Anesthesia Medical History Diabetes Partial nontraumatic amputation of foot R trans metatarsal amputation Social History (Updated 08/24/23 @ 15:31 by Louie Jolly MD) Smoking and tobacco/nicotine status: never used tobacco/nicotine Alcohol intake: never Substance/Drug Use: current Substance/Drug use type: Marijuana Data Anesthesia 08/25/23 05:17 08/25/23 05:17 Short CBC 08/24/23 08/25/23 Range/Units 14:05 05:17 WBC 10.28 9.87 (3.29-11.43) 10^3/uL Hgb 12.80 11.50 (11.27-16.99) g/dL Hct 37.7 35.2 L (37-53) % MCV 86.3 89.3 (82-101) fl Plt Count 273 249 (157-399) 10^3/cmm Neut % (Auto) 83.8 79.9 % Neut # (Auto) 8.61 H 7.88 H (1.8-7.7) 10^3/uL BMP 08/24/23 08/25/23 14:05 05:17 Sodium 129 L 131 L Potassium 4.5 4.0 Chloride 92 L 96 L Carbon Dioxide 24 21 L BUN 17 16 Creatinine 0.9 0.7 Glucose 228 H 139 H Calcium 9.2 8.7 Cardiac Enzymes 08/24/23 Range/Units 14:05 NT-Pro-B Natriuret Pep 504 H (0-125) pg/mL Liver Function 08/24/23 08/25/23 Range/Units 14:05 05:17 Total Bilirubin 0.8 0.6 (0.15-1.2) mg/dL AST 20 27 (0-40) U/L ALT 15 18 (0-41) U/L Alkaline Phosphatase 136 H 112 (40-130) U/L Albumin 3.5 2.8 L (3.5-5.2) g/dL Coags 08/24/23 08/24/23 14:05 14:05 PT 15.00 H INR 1.14 C-Reactive Protein 236.5 H Microbiology 08/24/23 14:05 Blood Culture - Preliminary Blood SPECIMEN COLLECTED 08/24/23 14:05 Blood Culture - Preliminary Blood SPECIMEN COLLECTED Cardiac Studies: No Data to Display
--- NOTE | 2023-08-25 09:35 | ANE.PACU2 ---
Inpatient post-anesthesia follow up: Airway intact: Yes Vital signs: Temperature 97.7 F Pulse Rate 79 Respiratory Rate 17 Blood Pressure 117/65 Pulse Oximetry 98 Oxygen Delivery Me thod Room Air Oxygen Flow Rate Fraction of Inspir ed Oxygen Hydration adequate: Yes Nausea and vomiting: No Pain level: 1 Mental status: Baseline
[2023-08-25 10:03] LABS: Glucose Point of Care 150 mg/dL (70-110)
[2023-08-25 12:37] LABS: Glucose Point of Care 187 mg/dL (70-110)
--- NOTE | 2023-08-25 12:52 | PC.SOCIAL ---
Pg 2 IMM Explained to pt Pg 2 IMM. No questions voiced. Provided pt a copy. Initialed, dated, & timed a copy & placed in chart.
--- NOTE | 2023-08-25 13:09 | PM.PN ---
Subjective Subjective: patient was seen this morning, s/p surgical intervntion has no complaints, no fever, no cough, no abdominal pain Vitals/I&O/Wt Last Vital Signs Temp 97.7 F 08/25/23 11:55 Pulse 55 L 08/25/23 11:55 Resp 18 08/25/23 11:55 BP 106/65 08/25/23 11:55 Pulse Ox 99 08/25/23 11:55 O2 Del Method Room Air 08/25/23 11:55 O2 Flow Rate 6 08/25/23 09:27 08/24/23 08/25/23 08/25/23 22:59 06:59 14:59 Intake Total 540 / 540 250.208 / 790.208 99.792 / 99.792 Output Total Balance 540 / 540 250.208 / 790.208 74.792 / 74.792 Weight last 48 hrs Weight 77.564 kg Weight 77.564 kg Weight 81.647 kg Physical Exam Const: COMMON NORMALS: no acute distress and patient oriented x3 Resp: COMMON NORMALS: normal respiratory effort, No retractions, No use of accessory muscles and clear to auscultation bilaterally AUSCULTATION: clear to auscultation bilaterally Cardio: COMMON NORMALS: regular rate, regular rhythm, S1 normal heart sound present and S2 normal heart sound present RATE: regular rate RHYTHM: regular rhythm HEART SOUNDS: S1 normal heart sound present and S2 normal heart sound present GI: COMMON NORMALS: Normal to inspection, nondistended, normoactive bowel sounds present and non-tender Extremity: COMMON NORMALS: no pedal edema NARRATIVE EXTREMITY EXAM: bilateral lower extremity wrapped Neuro: COMMON NORMALS: patient oriented x3 Psych: COMMON NORMALS: mental status grossly normal Data 08/25/23 05:17 08/25/23 05:17 Micro: Microbiology 08/24/23 15:21 Anaerobic Culture - Preliminary Foot - #1 08/25/23 09:08 Gram Stain - Final Other Source 08/24/23 14:05 Blood Culture - Preliminary Blood SPECIMEN COLLECTED 08/24/23 14:05 Blood Culture - Preliminary Blood SPECIMEN COLLECTED A&P Assessment and plan (1) Cellulitis of left foot: (2) Non-pressure chronic ulcer of other part of left foot with necrosis of bone: (3) Status post transmetatarsal amputation of right foot: (4) Diabetic peripheral neuropathy associated with type 2 diabetes mellitus: (5) Gangrene of left foot: (6) Diabetic foot ulcer with osteomyelitis: (7) Gangrenous toe: (8) Partial nontraumatic amputation of foot: (9) Diabetes: Plan Left foot diabetic foot infection ? Status post bedside debridement by Dr. Fajardo, currently wrapped, ? s/p surgical intervention ? Vancomycin, Zosyn, ? CRP 236.5, ? Blood cultures, ? Continue to monitor clinically, ? Full code, ? Lovenox for DVT prophylaxis, Type 2 diabetes mellitus: Low-dose sliding scale ABIs, FINDINGS: Right common femoral artery: No occlusion or significant stenosis. Normal waveform. Right superficial femoral artery: No occlusion or significant stenosis. Normal waveform. Right popliteal artery: No occlusion or significant stenosis. Normal waveform. Right calf/foot arteries: No occlusion or significant stenosis in the visualized arteries. Normal waveforms. Dorsalis pedis artery is patent. Left common femoral artery: No occlusion or significant stenosis. Normal waveform. Left superficial femoral artery: No occlusion or significant stenosis. Normal waveform. Left popliteal artery: No occlusion or significant stenosis. Normal waveform. Left calf/foot arteries: No occlusion or significant stenosis in the visualized arteries. Normal waveforms. Dorsalis pedis artery is patent. US/[place] [id number] IMPRESSION: No stenosis or occlusion. History of EGD, found to have a large gastric polyp, unfortunately it was unable to be removed due to equipment failure, he has a follow-up appointment for removal and near future Attestations Medical Necessity Statement*: patient requires hospitalization diabetic foot infection, s/p surgery Diagnoses Cellulitis of left foot L03.116 Non-pressure chronic ulcer of other part of left foot with necrosis of bone L97.524 Status post transmetatarsal amputation of right foot Z89.431 Diabetic peripheral neuropathy associated with type 2 diabetes mellitus E11.42 Gangrene of left foot I96 Diabetic foot ulcer with osteomyelitis E11.621; E11.69; L97.509; M86.9 Gangrenous toe I96 Partial nontraumatic amputation of foot Z89.439 Diabetes E11.9
[2023-08-25] MEDS: insulin lispro 100 unit/1 mL SUBCUT (13:16)
[2023-08-25] MEDS: diphenhydrAMINE cream 30 gm 1 APPLIC TOPICAL ×2 (15:31→22:08)
[2023-08-25 16:59] LABS: Glucose Point of Care 92 mg/dL (70-110)
[2023-08-25] MEDS: enoxaparin 40 mg/0.4 mL Syringe SUBCUT (17:50)
[2023-08-25] MEDS: pantoprazole 40 mg SDV IVP (17:50)
[2023-08-25] MEDS: morphine 4 mg/mL SDV 1 mL 2 MG IVP (19:55)
[2023-08-25 22:36] LABS: Glucose Point of Care 220 mg/dL (70-110)
[2023-08-26] VITALS (11 sets, daily range): BP systolic 95–118; BP diastolic 47–60; PULSE 54–66; RESP 14–18; TEMP 36.3–37.3; O2SAT 97–98
[2023-08-26] MEDS: morphine 4 mg/mL SDV 1 mL 2 MG IVP ×2 (00:28→08:35)
[2023-08-26] MEDS: vancomycin 1,250 MG/250 ML PIGGYBACK 200 MG IV ×2 (01:40→14:27)
[2023-08-26] MEDS: piperacillin-tazobactam 3.375 GM in sodium chloride 0.9% (plus) 50 ML IV ×3 (03:57→20:31)
[2023-08-26 06:01] LABS: Basophils # 0.1 10^3/uL (0.0-0.1); Basophils % 0.8 %; Eosinophils # 0.3 10^3/uL (0.0-0.8); Eosinophils % 4.9 %; Hematocrit 35.8 % (37-53); Lymphocytes # 1.1 10^3/uL (0.8-4.8); Lymphocytes % 17.6 %; Mean Corpuscular HGB Conc 32.4 g/dL (30-55); Mean Corpuscular Hemoglobin 28.9 pg (27-33); Mean Corpuscular Volume 89.1 fl (82-101); Mean Platelet Volume 9.6 fL (7.4-10.4); Monocytes # 0.7 10^3/uL (0.2-0.9); Monocytes % 10.8 %; Neutrophils # 3.98 10^3/uL (1.8-7.7); Neutrophils % 65.4 %; Nucleated Red Blood Cells % 0 %; Platelet Count 263 10^3/cmm (157-399); Red Blood Count 4.02 10^6/uL (3.85-5.65); Red Cell Distribution Width 11.9 % (12.1-15.1); White Blood Count 6.09 10^3/uL (3.29-11.43)
[2023-08-26 06:28] LABS: Alanine Aminotransferase 18 U/L (0-41); Albumin Level 2.7 g/dL (3.5-5.2); Alkaline Phosphatase 101 U/L (40-130); Anion Gap 16.2 (5-19); Aspartate Amino Transferase 26 U/L (0-40); Blood Urea Nitrogen 14 mg/dL (8-23); Calcium 8.5 mg/dL (8.5-10.5); Carbon Dioxide 20 mmol/L (22-29); Chloride 101 mmol/L (98-107); Globulin 4.2 g/dL (1.3-4.6); Glomerular Filtration Rate 111.8 mL/min (90-130); Glucose 154 mg/dL (65-115); Osmolality Calculated 280 mOsm/kg (285-295); Phosphorus 2.7 mg/dL (2.5-4.5); Potassium 4.2 mmol/L (3.5-5.1); Sodium 133 mmol/L (136-145); Total Bilirubin 0.4 mg/dL (0.15-1.2); Total Protein 6.9 g/dL (6.6-8.7)
[2023-08-26 07:34] LABS: Glucose Point of Care 160 mg/dL (70-110)
[2023-08-26] MEDS: insulin lispro 100 unit/1 mL SUBCUT ×2 (08:34→11:47)
--- NOTE | 2023-08-26 08:40 | P.PN_ITS ---
Subjective Subjective: Patient seen bedside this morning. He is 1 day status post left transmetatarsal amputation secondary to gangrene. Denies any acute events overnight. 1 episode of pain at the left foot around midnight, was administered morphine and was able to rest comfortably. Patient denies any subjective nausea, vomiting, fever, chills, shortness of breath or chest pain. Vitals/I&O/Wt Last Vital Signs Temp 97.9 F 08/26/23 07:36 Pulse 57 L 08/26/23 07:36 Resp 18 08/26/23 08:35 BP 106/47 08/26/23 07:36 Pulse Ox 97 08/26/23 07:36 O2 Del Method Room Air 08/26/23 07:36 O2 Flow Rate 6 08/25/23 09:27 08/25/23 08/26/23 08/26/23 22:59 06:59 14:59 Intake Total 730 / 1559.792 300 / 1859.792 530 / 530 Output Total 500 / 525 600 / 1125 Balance 230 / 1034.792 -300 / 734.792 530 / 530 Weight last 48 hrs Weight 171 lb Weight 171 lb Weight 171 lb Weight 180 lb Physical Exam Narrative: GENERAL: Patient is alert and oriented ?3 and in no acute distress. The following is a focused bilateral lower extremity exam. His sister is bedside. VASCULAR: Dorsalis pedis palpable bilaterally. Posterior tibial arteries palpable. Capillary refill less than 5 seconds to the left great toe. Capillary refill less than 5 seconds to the transmetatarsal amputation stump right foot. Calf is supple and nontender proximally and distally. Left foot edema. Increased warmth to the left forefoot. NEUROLOGICAL: Protective sensation intact 0/10 sites, tested with [place] Ava monofilament to bilateral feet. DERMATOLOGICAL: Questionable viability to dorsal and plantar flap at left transmetatarsal amputation site, has slight duskiness, no purulence and no pulsatile bleeding. MUSCULOSKELETAL: Status post right transmetatarsal amputation. Status post left transmetatarsal amputation. Data 08/26/23 05:07 08/26/23 05:07 Micro: Microbiology 08/24/23 14:05 Blood Culture - Preliminary Blood NEGATIVE TO DATE 08/24/23 14:05 Blood Culture - Preliminary Blood NEGATIVE TO DATE 08/24/23 15:21 Anaerobic Culture - Preliminary Foot - #1 08/25/23 09:08 Gram Stain - Final Other Source A&P Assessment and plan (1) Gangrene of left foot: (2) Diabetic foot ulcer with osteomyelitis: (3) Diabetic peripheral neuropathy associated with type 2 diabetes mellitus: (4) Status post transmetatarsal amputation of right foot: Dressing change to the right transmetatarsal amputation site at today's visit, sutures remain intact, incision site is well-healing without acute signs of infection. (5) Non-pressure chronic ulcer of other part of left foot with necrosis of bone: (6) Cellulitis of left foot: Plan The treatment plan for a 68-year-old diabetic male presenting with gangrene in the left foot, osteomyelitis, and soft tissue emphysema includes: * 1 day status post left transmetatarsal amputation date of operation 08/25/2023 * Amputation site left open due to extent of infection. Patient will require potential extended hospital stay in order to achieve a level of soft tissue improvement that would be amenable to primary delayed closure during this hospitalization. Will monitor closely daily and proceed with delayed closure once soft tissue is improved, should he fail to improve may require wound VAC versus higher level of amputation. * Pending wound cultures, Gram stain significant for gram-positive cocci in pairs. * Arterial duplex scan left lower extremity, 08/24/2023 found no stenosis or occlusion. * Would plan for PICC line and half-way placement after this hos pitalization. * Surgical dressing change performed this a.m. * Podiatry will follow daily. Attestations Medical Necessity Statement*: Left foot gangrene Coding Level of Care Code Acute Code for [facility] Diagnoses Gangrene of left foot I96 Diabetic foot ulcer with osteomyelitis E11.621; E11.69; L97.509; M86.9 Diabetic peripheral neuropathy associated with type 2 diabetes mellitus E11.42 Status post transmetatarsal amputation of right foot Z89.431 Non-pressure chronic ulcer of other part of left foot with necrosis of bone L97.524 Cellulitis of left foot L03.116
[2023-08-26] MEDS: HYDROcodone-acetaminophen 5-325 mg Tablet 1 TAB PO ×2 (09:40→17:02)
[2023-08-26 11:11] LABS: Glucose Point of Care 225 mg/dL (70-110)
[2023-08-26 12:37] LABS: Vancomycin Trough 14.8 ug/mL (10-15)
--- NOTE | 2023-08-26 16:07 | P.PN_ITS ---
Subjective Subjective: Patient was seen this morning, he has no complaints this morning, denies any fevers, no chills, no cough, no lightheadedness, dizziness, Vitals/I&O/Wt Last Vital Signs Temp 98.1 F 08/26/23 15:55 Pulse 55 L 08/26/23 15:55 Resp 18 08/26/23 15:55 BP 110/50 08/26/23 15:55 Pulse Ox 98 08/26/23 15:55 O2 Del Method Room Air 08/26/23 15:55 O2 Flow Rate 6 08/25/23 09:27 08/26/23 08/26/23 08/26/23 06:59 14:59 22:59 Intake Total 300 / 4619.807 6001 / 1010 Output Total 600 / 1125 Balance -300 / 669.012 2543 / 1010 Weight last 48 hrs Weight 77.564 kg Weight 77.564 kg Weight 77.564 kg Physical Exam Const: COMMON NORMALS: no acute distress and patient oriented x3 Resp: COMMON NORMALS: normal respiratory effort, No retractions, No use of ac cessory muscles and clear to auscultation bilaterally AUSCULTATION: clear to auscultation bilaterally Cardio: COMMON NORMALS: regular rate, regular rhythm, S1 normal heart sound present and S2 normal heart sound present RATE: regular rate RHYTHM: regular rhythm HEART SOUNDS: S1 normal heart sound present and S2 normal heart sound present GI: COMMON NORMALS: Normal to inspection, nondistended, normoactive bowel sounds present and non-tender Extremity: COMMON NORMALS: no pedal edema Neuro: COMMON NORMALS: patient oriented x3 Psych: COMMON NORMALS: mental status grossly normal Data 08/26/23 05:07 08/26/23 05:07 Micro: Microbiology 08/25/23 09:08 Gram Stain - Final Other Source Wound Culture - Preliminary 08/24/23 15:21 Anaerobic Culture - Preliminary Foot - #1 08/24/23 14:05 Blood Culture - Preliminary Blood NEGATIVE TO DATE 08/24/23 14:05 Blood Culture - Preliminary Blood NEGATIVE TO DATE A&P Assessment and plan (1) Cellulitis of left foot: (2) Non-pressure chronic ulcer of other part of left foot with necrosis of bone: (3) Status post transmetatarsal amputation of right foot: (4) Diabetic peripheral neuropathy associated with type 2 diabetes mellitus: (5) Gangrene of left foot: (6) Diabetic foot ulcer with osteomyelitis: (7) Gangrenous toe: (8) Partial nontraumatic amputation of foot: (9) Diabetes: Plan Left foot diabetic foot infection ? With concerns for gangrene of left foot, left foot osteomyelitis ?Status post left transmetatarsal amputation, 08/25/2023, amputation site left open due to extent of infection ? Vancomycin, Zosyn, ? CRP 236.5, ? Blood cultures, ? Wound cultures ? Continue to monitor clinically, ? Full code, ? Lovenox for DVT prophylaxis, Type 2 diabetes mellitus: Low-dose sliding scale ABIs, FINDINGS: Right common femoral artery: No occlusion or significant stenosis. Normal waveform. Right superficial femoral artery: No occlusion or significant stenosis. Normal waveform. Right popliteal artery: No occlusion or significant stenosis. Normal waveform. Right calf/foot arteries: No occlusion or significant stenosis in the visualized arteries. Normal waveforms. Dorsalis pedis artery is patent. Left common femoral artery: No occlusion or significant stenosis. Normal waveform. Left superficial femoral artery: No occlusion or significant stenosis. Normal waveform. Left popliteal artery: No occlusion or significant stenosis. Normal waveform. Left calf/foot arteries: No occlusion or significant stenosis in the visualized arteries. Normal waveforms. Dorsalis pedis artery is patent. US/[place] [id number] IMPRESSION: No stenosis or occlusion. History of EGD, found to have a large gastric polyp, unfortunately it was unable to be removed due to equipment failure, he has a follow-up appointment for removal and near future Attestations Medical Necessity Statement*: Patient requires hospitalization for left foot diabetic foot infection with gangrene, with osteomyelitis, status post TMA surgical site open, on IV antibiotics Diagnoses Cellulitis of left foot L03.116 Non-pressure chronic ulcer of other part of left foot with necrosis of bone L97.524 Status post transmetatarsal amputation of right foot Z89.431 Diabetic peripheral neuropathy associated with type 2 diabetes mellitus E11.42 Gangrene of left foot I96 Diabetic foot ulcer with osteomyelitis E11.621; E11.69; L97.509; M86.9 Gangrenous toe I96 Partial nontraumatic amputation of foot Z89.439 Diabetes E11.9
[2023-08-26] MEDS: enoxaparin 40 mg/0.4 mL Syringe SUBCUT (17:02)
[2023-08-26] MEDS: pantoprazole 40 mg SDV IVP (17:03)
[2023-08-26 17:15] LABS: Glucose Point of Care 113 mg/dL (70-110)
[2023-08-26 21:17] LABS: Glucose Point of Care 249 mg/dL (70-110)
[2023-08-27] VITALS (10 sets, daily range): BP systolic 97–127; BP diastolic 55–67; PULSE 56–66; RESP 15–18; TEMP 36.6–37.3; O2SAT 95–99
[2023-08-27 00:10] LABS: Glucose Point of Care 221 mg/dL (70-110)
[2023-08-27] MEDS: insulin lispro 100 unit/1 mL 6 UNIT SUBCUT (01:22)
[2023-08-27] MEDS: vancomycin 1,250 MG/250 ML PIGGYBACK 200 MG IV ×2 (01:22→13:05)
[2023-08-27] MEDS: HYDROcodone-acetaminophen 5-325 mg Tablet 1 TAB PO ×3 (03:44→18:32)
[2023-08-27] MEDS: piperacillin-tazobactam 3.375 GM in sodium chloride 0.9% (plus) 50 ML IV ×3 (04:46→22:00)
[2023-08-27 05:43] LABS: Basophils % 0.6 %; Eosinophils # 0.2 10^3/uL (0.0-0.8); Eosinophils % 2.9 %; Hematocrit 31.1 % (37-53); Lymphocytes # 0.8 10^3/uL (0.8-4.8); Lymphocytes % 11.5 %; Mean Corpuscular HGB Conc 32.5 g/dL (30-55); Mean Corpuscular Hemoglobin 28.7 pg (27-33); Mean Corpuscular Volume 88.4 fl (82-101); Mean Platelet Volume 9.5 fL (7.4-10.4); Monocytes # 0.6 10^3/uL (0.2-0.9); Monocytes % 8.9 %; Neutrophils # 5.26 10^3/uL (1.8-7.7); Neutrophils % 75.5 %; Nucleated Red Blood Cells % 0 %; Platelet Count 242 10^3/cmm (157-399); Red Blood Count 3.52 10^6/uL (3.85-5.65); Red Cell Distribution Width 11.8 % (12.1-15.1); White Blood Count 6.96 10^3/uL (3.29-11.43)
[2023-08-27 06:05] LABS: Alanine Aminotransferase 15 U/L (0-41); Albumin Level 2.5 g/dL (3.5-5.2); Alkaline Phosphatase 95 U/L (40-130); Aspartate Amino Transferase 17 U/L (0-40); Blood Urea Nitrogen 12 mg/dL (8-23); Calcium 8.2 mg/dL (8.5-10.5); Carbon Dioxide 23 mmol/L (22-29); Chloride 102 mmol/L (98-107); Globulin 3.8 g/dL (1.3-4.6); Glomerular Filtration Rate 133.6 mL/min (90-130); Glucose 126 mg/dL (65-115); Magnesium 1.7 mg/dL (1.7-2.3); Osmolality Calculated 277 mOsm/kg (285-295); Sodium 133 mmol/L (136-145); Total Bilirubin 0.3 mg/dL (0.15-1.2); Total Protein 6.3 g/dL (6.6-8.7)
[2023-08-27 06:54] LABS: Glucose Point of Care 121 mg/dL (70-110)
--- NOTE | 2023-08-27 08:47 | XRR_ITS ---
PROCEDURE INFORMATION: Exam: XR Left Foot Exam date and time: 08/27/2023 12:33 PM Age: 68 years old Clinical indication: Other: Post op tma; Prior surgery; Surgery date: Post-operative (0-2 days) TECHNIQUE: Imaging protocol: Radiologic exam of the left foot. Views: 3 or more views. COMPARISON: CR (LOW EXM, ) 08/24/2023 1:43 PM FINDINGS: Bones/joints: New mid transmetatarsal amputation of all left toes. No obvious abnormality of the remaining bones of the left foot. Soft tissues: Postsurgical changes and swelling of the soft tissues. XR/XR foot LT min 3V* [id number] IMPRESSION: As above. If there is clinical concern of infection/osteomyelitis, then consider MRI.
--- NOTE | 2023-08-27 08:47 | P.PN_ITS ---
Subjective Subjective: Patient seen bedside this a.m., denies any acute events overnight. Patient denies any subjective nausea, vomiting, fever, chills, shortness of breath or chest pain. Vitals/I&O/Wt Last Vital Signs Temp 97.9 F 08/27/23 07:14 Pulse 58 L 08/27/23 07:14 Resp 18 08/27/23 07:14 BP 110/61 08/27/23 07:14 Pulse Ox 97 08/27/23 07:14 O2 Del Method Room Air 08/27/23 07:14 O2 Flow Rate 6 08/25/23 09:27 08/26/23 08/27/23 08/27/23 22:59 06:59 14:59 Intake Total 420 / 1430 400 / 1830 Output Total 500 / 500 325 / 825 Balance -80 / 930 75 / 1005 Weight last 48 hrs Weight 170 lb Weight 171 lb Physical Exam Narrative: GENERAL: Patient is alert and oriented ?3 and in no acute distress. The following is a focused bilateral lower extremity exam. His sister is bedside. VASCULAR: Dorsalis pedis palpable bilaterally. Posterior tibial arteries palpable. Capillary refill less than 5 seconds to the left great toe. Capillary refill less than 5 seconds to the transmetatarsal amputation stump right foot. Calf is supple and nontender proximally and distally. Left foot edema. Increased warmth to the left forefoot. NEUROLOGICAL: Protective sensation intact 0/10 sites, tested with [place] Ava monofilament to bilateral feet. DERMATOLOGICAL: Distal portion of the dorsal and plantar flap at left transmetatarsal amputation site showing ischemic changes with gill dusky appearance, no purulence and no pulsatile bleeding. Midfoot soft tissue appears viable. MUSCULOSKELETAL: Status post right transmetatarsal amputation. Status post left transmetatarsal amputation. Data 08/27/23 05:25 08/27/23 05:25 Micro: Microbiology 08/25/23 09:08 Gram Stain - Final Other Source Wound Culture - Preliminary 08/24/23 15:21 Anaerobic Culture - Preliminary Foot - #1 A&P Assessment and plan (1) Gangrene of left foot: (2) Diabetic foot ulcer with osteomyelitis: (3) Diabetic peripheral neuropathy associated with type 2 diabetes mellitus: (4) Status post transmetatarsal amputation of right foot: Dressing change to the right transmetatarsal amputation site at today's visit, sutures remain intact, incision site is well-healing without acute signs of infection. (5) Non-pressure chronic ulcer of other part of left foot with necrosis of bone: (6) Cellulitis of left foot: Plan The treatment plan for a 68-year-old diabetic male presenting with gangrene in the left foot, osteomyelitis, and soft tissue emphysema includes: * 2 days status post left transmetatarsal amputation date of operation 08/25/2023, skin flap is nonviable at distal margin. * Dorsal and plantar skin flap distally is nonviable, has bonilla ischemic appearance likely due to infectious insult. Will require more proximal transmetatarsal amputation versus Lisfranc amputation with delayed closure versus split-thickness skin graft and wound VAC. Scheduled for tomorrow am. * NPO at midnight * Nutrition consult * Pending wound cultures showing group B strep * Arterial duplex scan left lower extremity, 08/24/2023 found no stenosis or occlusion. * Planning for PICC line and skilled facility placement after this hospitalization. * Surgical dressing change performed this a.m. * Podiatry will follow daily. Attestations Medical Necessity Statement*: Gangrene left foot Coding Level of Care Code Acute Code for [facility] Diagnoses Gangrene of left foot I96 Diabetic foot ulcer with osteomyelitis E11.621; E11.69; L97.509; M86.9 Diabetic peripheral neuropathy associated with type 2 diabetes mellitus E11.42 Status post transmetatarsal amputation of right foot Z89.431 Non-pressure chronic ulcer of other part of left foot with necrosis of bone L97.524 Cellulitis of left foot L03.116
[2023-08-27 11:46] LABS: Glucose Point of Care 300 mg/dL (70-110)
[2023-08-27] MEDS: insulin lispro 100 unit/1 mL SUBCUT ×2 (11:57→17:34)
--- NOTE | 2023-08-27 13:07 | P.PN_ITS ---
Subjective Subjective: Patient was seen this morning, he denies any fevers, no chills, no cough Vitals/I&O/Wt Last Vital Signs Temp 98.1 F 08/27/23 11:41 Pulse 63 08/27/23 11:41 Resp 18 08/27/23 11:41 BP 127/57 08/27/23 11:41 Pulse Ox 99 08/27/23 11:41 O2 Del Method Room Air 08/27/23 11:41 O2 Flow Rate 6 08/25/23 09:27 08/26/23 08/27/23 08/27/23 22:59 06:59 14:59 Intake Total 420 / 1430 400 / 1830 1010 / 1010 Output Total 500 / 500 325 / 825 800 / 800 Balance -80 / 930 75 / 1005 210 / 210 Weight last 48 hrs Weight 77.111 kg Weight 77.564 kg Physical Exam Const: COMMON NORMALS: no acute distress and patient oriented x3 Resp: COMMON NORMALS: normal respiratory effort, No retractions, No use of accessory muscles and clear to auscultation bilaterally AUSCULTATION: clear to auscultation bilaterally Cardio: COMMON NORMALS: regular rate, regular rhythm, S1 normal heart sound present and S2 normal heart sound present RATE: regular rate RHYTHM: regular rhythm HEART SOUNDS: S1 normal heart sound present and S2 normal heart sound present GI: COMMON NORMALS: Normal to inspection, nondistended, normoactive bowel sounds present and non-tender Extremity: COMMON NORMALS: no pedal edema Neuro: COMMON NORMALS: patient oriented x3 Psych: COMMON NORMALS: mental status grossly normal Data 08/27/23 05:25 08/27/23 05:25 Micro: Microbiology 08/25/23 09:08 Gram Stain - Final Other Source Wound Culture - Preliminary Strep agalactiae - (group b) 08/24/23 15:21 Anaerobic Culture - Preliminary Foot - #1 A&P Assessment and plan (1) Cellulitis of left foot: (2) Non-pressure chronic ulcer of other part of left foot with necrosis of bone: (3) Status post transmetatarsal amputation of right foot: (4) Diabetic peripheral neuropathy associated with type 2 diabetes mellitus: (5) Gangrene of left foot: (6) Diabetic foot ulcer with osteomyelitis: (7) Gangrenous toe: (8) Partial nontraumatic amputation of foot: (9) Diabetes: Plan Left foot diabetic foot infection ? With concerns for gangrene of left foot, left foot osteomyelitis ?Status post left transmetatarsal amputation, 08/25/2023, amputation site left open due to extent of infection ? Vancomycin, Zosyn, ? CRP 236.5, ? Blood cultures, ? Wound cultures ? Continue to monitor clinically, ? Full code, ? Lovenox for DVT prophylaxis, Type 2 diabetes mellitus: Low-dose sliding scale, add Lantus 10 units subcu today ABIs, FINDINGS: Right common femoral artery: No occlusion or significant stenosis. Normal waveform. Right superficial femoral artery: No occlusion or significant stenosis. Normal waveform. Right popliteal artery: No occlusion or significant stenosis. Normal waveform. Right calf/foot arteries: No occlusion or significant stenosis in the visualized arteries. Normal waveforms. Dorsalis pedis artery is patent. Left common femoral artery: No occlusion or significant stenosis. Normal waveform. Left superficial femoral artery: No occlusion or significant stenosis. Normal waveform. Left popliteal artery: No occlusion or significant stenosis. Normal waveform. Left calf/foot arteries: No occlusion or significant stenosis in the visualized arteries. Normal waveforms. Dorsalis pedis artery is patent. US/[place] [id number] IMPRESSION: No stenosis or occlusion. History of EGD, found to have a large gastric polyp, unfortunately it was unable to be removed due to equipment failure, he has a follow-up appointment for removal and near future, Continue IV antibiotics add Lantus, monitor blood sugars n.p.o. midnight for s urgery tomorrow Attestations Medical Necessity Statement*: Patient requires hospitalization for diabetic foot infection status post TMA, delayed wound closure, requiring IV antibiotics Coding Level of Care Code 82017 Moderate MDM includes number and complexity of problems actively addressed during encounter, amount and/or complexity of data reviewed/ordered and described risk of complication, morbidity or mortality of management as docu mented Diagnoses Cellulitis of left foot L03.116 Non-pressure chronic ulcer of other part of left foot with necrosis of bone L97.524 Status post transmetatarsal amputation of right foot Z89.431 Diabetic peripheral neuropathy associated with type 2 diabetes mellitus E11.42 Gangrene of left foot I96 Diabetic foot ulcer with osteomyelitis E11.621; E11.69; L97.509; M86.9 Gangrenous toe I96 Partial nontraumatic amputation of foot Z89.439 Diabetes E11.9
[2023-08-27] MEDS: diphenhydrAMINE cream 30 gm 1 APPLIC TOPICAL (13:49)
[2023-08-27] MEDS: insulin glargine 100 units/1 mL 10 UNIT SUBCUT (13:49)
--- NOTE | 2023-08-27 16:17 | PC.NURSE ---
When changing IV ATB pt had head covered and this nurse offered to shut blinds. He said that was only part of the problem. This nurse asked what the other part was, he stated that he had arrangements to go to [facility] and with the insurance he has that no one would take his insurance. So he stated he hoped that the communication consultant and the nurse that would only come out twice a week would be able to to keep infection away and from dying but good thing I have my DNR signed. I have lost all hope. This nurse stayed in room and spoke with him and informed him case management would be notified. Via this note and edit nursing assessment question regarding SS. Will continue to monitor and talk with pt.
[2023-08-27 17:02] LABS: Glucose Point of Care 180 mg/dL (70-110)
[2023-08-27] MEDS: pantoprazole 40 mg SDV IVP (17:34)
[2023-08-27] MEDS: enoxaparin 40 mg/0.4 mL Syringe SUBCUT (17:34)
[2023-08-27 20:04] LABS: Glucose Point of Care 201 mg/dL (70-110)
[2023-08-28] VITALS (15 sets, daily range): BP systolic 85–145; BP diastolic 50–78; PULSE 53–87; RESP 12–18; TEMP 36.5–37.4; O2SAT 96–100
[2023-08-28 02:18] LABS: Basophils # 0.1 10^3/uL (0.0-0.1); Basophils % 0.6 %; Eosinophils # 0.4 10^3/uL (0.0-0.8); Eosinophils % 4.6 %; Hematocrit 31.8 % (37-53); Lymphocytes # 1.5 10^3/uL (0.8-4.8); Mean Corpuscular HGB Conc 33.3 g/dL (30-55); Mean Corpuscular Volume 87.1 fl (82-101); Mean Platelet Volume 9.5 fL (7.4-10.4); Monocytes # 0.7 10^3/uL (0.2-0.9); Monocytes % 8.2 %; Nucleated Red Blood Cells % 0 %; Platelet Count 277 10^3/cmm (157-399); Red Blood Count 3.65 10^6/uL (3.85-5.65); Red Cell Distribution Width 11.8 % (12.1-15.1); White Blood Count 7.91 10^3/uL (3.29-11.43)
[2023-08-28 02:33] LABS: Vancomycin Trough 17.1 ug/mL (10-15)
[2023-08-28 02:45] LABS: Anion Gap 11.3 (5-19); Blood Urea Nitrogen 16 mg/dL (8-23); Calcium 8.5 mg/dL (8.5-10.5); Carbon Dioxide 27 mmol/L (22-29); Chloride 99 mmol/L (98-107); Glomerular Filtration Rate 133.6 mL/min (90-130); Glucose 147 mg/dL (65-115); Osmolality Calculated 280 mOsm/kg (285-295); Potassium 4.3 mmol/L (3.5-5.1); Sodium 133 mmol/L (136-145)
[2023-08-28] MEDS: vancomycin 1,250 MG/250 ML PIGGYBACK 200 MG IV ×2 (03:26→14:24)
[2023-08-28] MEDS: piperacillin-tazobactam 3.375 GM in sodium chloride 0.9% (plus) 50 ML IV ×2 (05:00→12:11)
--- NOTE | 2023-08-28 06:12 | W.PM.OPSUD ---
Surgery/Procedure H&P Update DATE OF PROCEDURE: August 28, 2023 DATE H&P PERFORMED: 08/27/23 H&P UPDATE INFORMATION: I have reviewed H&P completed within last 30 days, I have examined patient prior to procedure, No changes to prior documentation and H&P is in [facility] EMR on date indicated PREOP DIAGNOSIS: Gangrene left foot PLANNED PROCEDURE: Operation Date: 08/25/23 07:20 Proposed Procedures p Amputation Transmetatarsal(Left) - Anthony Fajardo DPM Operation Date: 08/28/23 07:20 Proposed Procedures p Primary delayed closure vs debirdement with split thickness skin graft(Left) - Anthony Fajardo DPM s Delayed Wound Closure(Left) - Anthony Fajardo DPM
--- NOTE | 2023-08-28 06:13 | P.OP_ITS ---
Operative Report Date of procedure: August 28, 2023 Pre-op diagnosis: Gangrene left foot Post-op diagnosis: Gangrene left foot Procedure done: Primary delayed closure left foot. CPT code 81208 Implants: 3-0 Vicryl, 3-0 nylon Specimens removed/disposition: None Surgeon: Anthony Fajardo DPM Retail Service Technician: Royal Estimated blood loss: 5 29 IV fluids: 0 Urine output: 0 Complications: None Brief History: The treatment plan for a 68-year-old diabetic male presenting with gangrene in the left foot, osteomyelitis, and soft tissue emphysema includes: ? * 2 days status post left transmetatarsal amputation date of operation 08/25/2023, skin flap is nonviable at distal margin. * Dorsal and plantar skin flap distally is nonviable, has bonilla ischemic appearance likely due to infectious insult.? Will require more proximal transmetatarsal amputation versus Lisfranc amputation with delayed closure versus split-thickness skin graft and wound VAC. Scheduled for tomorrow am. * NPO at midnight * Nutrition consult * Pending wound cultures showing group B strep * Arterial duplex scan left lower extremity, 08/24/2023 found no stenosis or occlusion. * Planning for PICC line and skilled facility placement after this hospitalization. Procedure: Under mild sedation the patient was brought to the operating room and remained on the gurney in supine position. A timeout was performed. Anesthesia was then administered by the anesthesia service. Local anesthesia was injected by myself consisting of 30 cc of 2% lidocaine plain and a left ankle block fashion. A padded pneumatic tourniquet applied left high thigh. The left lower extremity was scrubbed, prepped and draped utilizing normal aseptic technique. Left foot was elevated and the tourniquet inflated to 250 mmHg. Attention was directed to the left foot where ischemic, dark purple and gill distal portions of the dorsal and plantar full-thickness skin flap at the left transmetatarsal amputation site was appreciated with purulence down to the myofascial layer both dorsally and plantarly this was sharply excised with a #15 blade. Full-thickness skin flaps were remodeled approximately to viable level utilizing a #10 blade. The incision was irrigated with copious amounts of sterile saline solution. Sharp and excisional debridement of epidermis, dermis, subcutaneous tissue, muscle, tendon and bone was performed followed by further irrigation. The amputation site was then able to be closed directly utilizing 3-0 Vicryl and 3-0 nylon as well as skin josé miguel. Incision is well coapted without tension. The incision was then dressed with Xeroform, sterile 4 x 4, fluff, Kerlix and Wagner wrap followed by stockinette. Tourniquet was deflated and a prompt hyperemic response was appreciated to the left leg and distal portion of the amputation site. Patient tolerated the procedure well and was transferred to the PACU with vital signs stable and vascular status intact. Following a period of postoperative monitoring he will be transferred back to the floor. Successful primary delayed closure with clean margin, will discuss with hospitalist discontinuing PICC line and [facility].
[2023-08-28 06:43] LABS: Glucose Point of Care 163 mg/dL (70-110)
[2023-08-28] MEDS: sodium chloride 0.9% 1,000 ML 100 ML IV (06:47)
--- NOTE | 2023-08-28 07:00 | P.ANESUD_ITS ---
Pre-Anesthetic Update Pre-Anesthetic Assessment: Date of Surgery/Procedure: 08/28/23 Preop Kaity gnosis: Gangrene left foot Proposed Procedure: Operation Date: 08/25/23 07:20 Proposed Procedures p Amputation Transmetatarsal(Left) - Anthony Fajardo DPM Operation Date: 08/28/23 07:20 Proposed Procedures p Primary delayed closure vs debirdement with split thickness skin graft(Left) - Anthony Fajardo DPM s Delayed Wound Closure(Left) - Anthony Fajardo DPM Any changes to Pre-Anesthetic Assessment?: No Last Intake: Intake Last Liquid Date 08/27/23 Last Liquid Time 22:30 Last Solid Date 08/27/23 Last Solid Time 18:00 Labs Last 48hrs: Short CBC 08/27/23 08/28/23 Range/Units 05:25 01:50 WBC 6.96 7.91 (3.29-11.43) 10^ 3/uL Hgb 10.10 L 10.60 L (11.27-16.99) g/ dL Hct 31.1 L 31.8 L (37-53) % MCV 88.4 87.1 (82-101) fl Plt Count 242 277 (157-399) 10^3/c mm Neut % (Auto) 75.5 67.0 % Neut # (Auto) 5.26 5.30 (1.8-7.7) 10^3/u L BMP 08/27/23 08/28/23 05:25 01:50 Sodium 133 L 133 L Potassium 4.0 4.3 Chloride 102 99 Carbon Dioxide 23 27 BUN 12 16 Creatinine 0.6 L 0.6 L Glucose 126 H 147 H Calcium 8.2 L 8.5 Liver Function 08/27/23 Range/Units 05:25 Total Bilirubin 0.3 (0.15-1.2) mg/dL AST 17 (0-40) U/L ALT 15 (0-41) U/L Alkaline Phosphata se 95 (40-130) U/L Albumin 2.5 L (3.5-5.2) g/dL Vitals: Temperature 98.4 F 08/28/23 06:46 Temperature Source Temporal Artery S can 08/28/23 06:46 Pulse Rate 62 08/28/23 06:46 Pulse Rhythm Regular 08/27/23 20:00 Pulse Strength 1+ Faint 08/27/23 20:00 Respiratory Rate 18 08/28/23 06:46 Respiratory Effort Spontaneous, Non- Labored 08/27/23 20:00 Respiratory Depth Normal 08/27/23 20:00 Respiratory Patter n Normal 08/27/23 20:00 Blood Pressure 100/50 08/28/23 06:46 Blood Pressure Edita n 66 08/28/23 06:46 Blood Pressure Pos ition Semi Fowlers 08/24/23 15:18 Pulse Oximetry 96 08/28/23 06:46 Oxygen Delivery Me thod Room Air 08/28/23 06:46 Oxygen Flow Rate 6 08/25/23 09:27 Sepsis Recent Feve r Within 48 Hours No 08/24/23 12:56 Exam: Pre-Anes Outpt Exam: alert, oriented x 3, clear to auscultation bilaterally and regular rate & rhythm Cardiac Studies: No Data to Display
[2023-08-28] MEDS: lidocaine 2% INJ 20 mL 30 ML INJECTION (07:50)
--- NOTE | 2023-08-28 08:15 | ANE.PACU2 ---
Inpatient post-anesthesia follow up: Airway intact: Yes Vital signs: Temperature 97.8 F Pulse Rate 61 Respiratory Rate 18 Blood Pressure 145/78 Pulse Oximetry 96 Oxygen Delivery Me thod Room Air Oxygen Flow Rate 6 Fraction of Inspir ed Oxygen Hydration adequate: Yes Nausea and vomiting: No Pain level: 1 Mental status: Baseline
--- NOTE | 2023-08-28 08:30 | PC.NURSE ---
patient returned to room from PACU
[2023-08-28] MEDS: insulin lispro 100 unit/1 mL SUBCUT ×2 (12:11→18:08)
[2023-08-28 12:16] LABS: Glucose Point of Care 284 mg/dL (70-110)
[2023-08-28] MEDS: HYDROcodone-acetaminophen 5-325 mg Tablet 1 TAB PO ×2 (14:05→21:12)
--- NOTE | 2023-08-28 15:04 | PC.SOCIAL ---
IMM Update pg 2 of IMM updated and reviewed w/ patient. Copy provided and copy dated, initialed and placed in chart.
--- NOTE | 2023-08-28 16:12 | PM.PN ---
Subjective Subjective: Patient was seen this morning, postoperatively, he has no complaints, no fevers, chills, no cough, no abdominal pain, no lightheadedness, dizziness Vitals/I&O/Wt Last Vital Signs Temp 98 F 08/28/23 15:11 Pulse 87 08/28/23 15:11 Resp 18 08/28/23 15:11 BP 133/55 08/28/23 15:11 Pulse Ox 100 08/28/23 15:11 O2 Del Method Room Air 08/28/23 15:11 O2 Flow Rate 6 08/25/23 09:27 08/28/23 08/28/23 08/28/23 06:59 14:59 22:59 Intake Total 300 / 2190 991 / 991 Output Total 1150 / 1950 504 / 504 Balance -850 / 240 487 / 487 Weight last 48 hrs Weight 77.111 kg Weight 77.111 kg Physical Exam Const: COMMON NORMALS: no acute distress and patient oriented x3 Resp: COMMON NORMALS: normal respiratory effort, No retractions, No use of accessory muscles and clear to auscultation bilaterally AUSCULTATION: clear to auscultation bilaterally Cardio: COMMON NORMALS: regular rate, regular rhythm, S1 normal heart sound present and S2 normal heart sound present RATE: regular rate RHYTHM: regular rhythm HEART SOUNDS: S1 normal heart sound present and S2 normal heart sound present GI: COMMON NORMALS: Normal to inspection, nondistended, normoactive bowel sounds present and non-tender Extremity: COMMON NORMALS: no pedal edema Neuro: COMMON NORMALS: patient oriented x3 Psych: COMMON NORMALS: mental status grossly normal Data 08/28/23 01:50 08/28/23 01:50 Micro: Microbiology 08/24/23 15:21 Anaerobic Culture - Preliminary Foot - #1 08/25/23 09:08 Gram Stain - Final Other Source Wound Culture - Preliminary Strep agalactiae - (group b) Coag positive Staphylococcus A&P Assessment and plan (1) Cellulitis of left foot: (2) Non-pressure chronic ulcer of other part of left foot with necrosis of bone: (3) Status post transmetatarsal amputation of right foot: (4) Diabetic peripheral neuropathy associated with type 2 diabetes mellitus: (5) Gangrene of left foot: (6) Diabetic foot ulcer with osteomyelitis: (7) Gangrenous toe: (8) Partial nontraumatic amputation of foot: (9) Diabetes: Plan Left foot diabetic foot infection ? With concerns for gangrene of left foot, left foot osteomyelitis ?Status post left transmetatarsal amputation, 08/25/2023, amputation site left open due to extent of infection, status post surgical invention today with closure ? Vancomycin, Zosyn, ? CRP 236.5, ? Blood cultures, ? Wound cultures ? Continue to monitor clinically, ? Full code, ? Lovenox for DVT prophylaxis, Type 2 diabetes mellitus: Low-dose sliding scale, add Lantus 10 units subcu today ABIs, FINDINGS: Right common femoral artery: No occlusion or significant stenosis. Normal waveform. Right superficial femoral artery: No occlusion or significant stenosis. Normal waveform. Right popliteal artery: No occlusion or significant stenosis. Normal waveform. Right calf/foot arteries: No occlusion or significant stenosis in the visualized arteries. Normal waveforms. Dorsalis pedis artery is patent. Left common femoral artery: No occlusion or significant stenosis. Normal waveform. Left superficial femoral artery: No occlusion or significant stenosis. Normal waveform. Left popliteal artery: No occlusion or significant stenosis. Normal waveform. Left calf/foot arteries: No occlusion or significant stenosis in the visualized arteries. Normal waveforms. Dorsalis pedis artery is patent. US/[place] [id number] IMPRESSION: No stenosis or occlusion. History of EGD, found to have a large gastric polyp, unfortunately it was unable to be removed due to equipment failure, he has a follow-up appointment for removal and near future, Continue IV antibiotics add Lantus Attestations Medical Necessity Statement*: Patient requires hospitalization for left foot diabetic action Diagnoses Cellulitis of left foot L03.116 Non-pressure chronic ulcer of other part of left foot with necrosis of bone L97.524 Status post transmetatarsal amputation of right foot Z89.431 Diabetic peripheral neuropathy associated with type 2 diabetes mellitus E11.42 Gangrene of left foot I96 Diabetic foot ulcer with osteomyelitis E11.621; E11.69; L97.509; M86.9 Gangrenous toe I96 Partial nontraumatic amputation of foot Z89.439 Diabetes E11.9
[2023-08-28 17:51] LABS: Glucose Point of Care 146 mg/dL (70-110)
[2023-08-28] MEDS: amoxicillin-clav 875-125 mg Tablet 1 TAB PO (18:08)
[2023-08-28] MEDS: doxycycline 100 mg Tablet PO (18:08)
[2023-08-28] MEDS: enoxaparin 40 mg/0.4 mL Syringe SUBCUT (18:08)
[2023-08-28] MEDS: pantoprazole 40 mg SDV IVP (18:08)
[2023-08-28] MEDS: acetaminophen 325 mg Tablet 650 MG PO (18:14)
[2023-08-28 20:26] LABS: Glucose Point of Care 185 mg/dL (70-110)
[2023-08-29] VITALS (7 sets, daily range): BP systolic 112–152; BP diastolic 54–72; PULSE 61–76; RESP 16–18; TEMP 37–37.8; O2SAT 94–99
[2023-08-29] MEDS: insulin lispro 100 unit/1 mL SUBCUT ×4 (08:00→17:48)
[2023-08-29 08:22] LABS: Glucose Point of Care 252 mg/dL (70-110)
[2023-08-29 08:28] LABS: Anion Gap 16.6 (5-19); Blood Urea Nitrogen 13 mg/dL (8-23); Calcium 8.5 mg/dL (8.5-10.5); Carbon Dioxide 23 mmol/L (22-29); Chloride 99 mmol/L (98-107); Glomerular Filtration Rate 133.6 mL/min (90-130); Glucose 175 mg/dL (65-115); Osmolality Calculated 282 mOsm/kg (285-295); Potassium 4.6 mmol/L (3.5-5.1); Sodium 134 mmol/L (136-145)
[2023-08-29 09:19] LABS: Basophils # 0.1 10^3/uL (0.0-0.1); Basophils % 0.6 %; Eosinophils # 0.3 10^3/uL (0.0-0.8); Eosinophils % 3.4 %; Hematocrit 33.3 % (37-53); Lymphocytes # 0.9 10^3/uL (0.8-4.8); Lymphocytes % 11.1 %; Mean Corpuscular HGB Conc 30.9 g/dL (30-55); Mean Corpuscular Hemoglobin 28.7 pg (27-33); Mean Corpuscular Volume 92.8 fl (82-101); Mean Platelet Volume 9.3 fL (7.4-10.4); Monocytes # 0.5 10^3/uL (0.2-0.9); Monocytes % 6.3 %; Neutrophils # 6.61 10^3/uL (1.8-7.7); Neutrophils % 77.9 %; Nucleated Red Blood Cells % 0 %; Platelet Count 260 10^3/cmm (157-399); Red Blood Count 3.59 10^6/uL (3.85-5.65); Red Cell Distribution Width 11.8 % (12.1-15.1); White Blood Count 8.48 10^3/uL (3.29-11.43)
[2023-08-29] MEDS: amoxicillin-clav 875-125 mg Tablet 1 TAB PO ×2 (09:27→17:49)
[2023-08-29] MEDS: doxycycline 100 mg Tablet PO ×2 (09:27→17:49)
[2023-08-29 11:21] LABS: Glucose Point of Care 289 mg/dL (70-110)
--- NOTE | 2023-08-29 12:28 | P.PN_ITS ---
Subjective 2 Subjective: Patient seen bedside this a.m., denies any acute events overnight. Patient denies any subjective nausea, vomiting, fever, chills, shortness of breath or chest pain. Vitals/I&O/Wt Last Vital Signs Temp 98.6 F 08/29/23 00:00 Pulse 76 08/29/23 00:00 Resp 17 08/29/23 00:00 BP 112/72 08/29/23 00:00 Pulse Ox 98 08/29/23 00:00 O2 Del Method Room Air 08/28/23 15:11 O2 Flow Rate 6 08/25/23 09:27 08/28/23 08/29/23 08/29/23 22:59 06:59 14:59 Intake Total 1260 / 2251 480 / 480 Output Total 500 / 1004 150 / 1154 Balance 760 / 1247 -150 / 1097 480 / 480 Weight last 48 hrs Weight 170 lb Physical Exam 2 Narrative: GENERAL: Patient is alert and oriented ?3 and in no acute distress. The following is a focused bilateral lower extremity exam. His sister is bedside. VASCULAR: Dorsalis pedis palpable bilaterally. Posterior tibial arteries palpable. Capillary refill less than 5 seconds to the left great toe. Capillary refill less than 5 seconds to the transmetatarsal amputation stump right foot. Calf is supple and nontender proximally and distally. Left foot edema. Increased warmth to the left forefoot. NEUROLOGICAL: Protective sensation intact 0/10 sites, tested with [place] Ava monofilament to bilateral feet. DERMATOLOGICAL: Left foot sterile surgical dressing left intact, there is no strikethrough bleeding. No proximal lymphangitic streaking or erythema proximal to the surgical dressing left foot. MUSCULOSKELETAL: Status post right transmetatarsal amputation. Status post left transmetatarsal amputation. Data 08/29/23 05:13 08/29/23 05:13 Micro: Microbiology 08/24/23 15:21 Anaerobic Culture - Preliminary Foot - #1 08/25/23 09:08 Gram Stain - Final Other Source Wound Culture - Preliminary Strep agalactiae - (group b) Coag positive Staphylococcus A&P Assessment and plan (1) Gangrene of left foot: (2) Diabetic foot ulcer with osteomyelitis: (3) Diabetic peripheral neuropathy associated with type 2 diabetes mellitus: (4) Status post transmetatarsal amputation of right foot: Dressing change to the right transmetatarsal amputation site at today's visit, sutures remain intact, incision site is well-healing without acute signs of infection. (5) Non-pressure chronic ulcer of other part of left foot with necrosis of bone: (6) Cellulitis of left foot: Plan The treatment plan for a 68-year-old diabetic male presenting with gangrene in the left foot, osteomyelitis, and soft tissue emphysema * Status post left transmetatarsal amputation date of operation 08/25/2023 * Status post primary delayed closure left foot, date of operation 04/27/2023. * Nutrition consult * Wound culture collected 08/25/2023 significant for strep group B and coag positive Staphylococcus. * Arterial duplex scan left lower extremity, 08/24/2023 found no stenosis or occlusion. * Nonweightbearing, heel touch for transfers with postop shoes bilaterally. Planning on oral antibiotics, 2 weeks duration at discharge. Patient okay for discharge to skilled nurse facility from podiatry standpoint. Follow-up in podiatry clinic next week. Attestations 2 Medical Necessity Statement*: Gangrene left foot Coding Level of Care Code Acute Code for [facility] Diagnoses Gangrene of left foot I96 Diabetic foot ulcer with osteomyelitis E11.621; E11.69; L97.509; M86.9 Diabetic peripheral neuropathy associated with type 2 diabetes mellitus E11.42 Status post transmetatarsal amputation of right foot Z89.431 Non-pressure chronic ulcer of other part of left foot with necrosis of bone L97.524 Cellulitis of left foot L03.116
--- NOTE | 2023-08-29 13:27 | P.PN_ITS ---
Subjective 2 Subjective: Patient was seen this morning, he has no complaints overnight, no fevers, no chills Vitals/I&O/Wt Last Vital Signs Temp 98.6 F 08/29/23 00:00 Pulse 76 08/29/23 00:00 Resp 17 08/29/23 00:00 BP 112/72 08/29/23 00:00 Pulse Ox 98 08/29/23 00:00 O2 Del Method Room Air 08/28/23 15:11 O2 Flow Rate 6 08/25/23 09:27 08/28/23 08/29/23 08/29/23 22:59 06:59 14:59 Intake Total 1260 / 2251 480 / 480 Output Total 500 / 1004 150 / 1154 Balance 760 / 1247 -150 / 1097 480 / 480 Weight last 48 hrs Weight 77.111 kg Physical Exam 2 Const: COMMON NORMALS: no acute distress and patient oriented x3 Resp: COMMON NORMALS: normal respiratory effort, No retractions, No use of accessory muscles and clear to auscultation bilaterally AUSCULTATION: clear to auscultation bilaterally Cardio: COMMON NORMALS: regular rate, regular rhythm, S1 normal heart sound present and S2 normal heart sound present RATE: regular rate RHYTHM: r egular rhythm HEART SOUNDS: S1 normal heart sound present and S2 normal heart sound present GI: COMMON NORMALS: Normal to inspection, nondistended, normoactive bowel sounds present and non-tender Extremity: COMMON NORMALS: no calf tenderness and no pedal edema Neuro: COMMON NORMALS: patient oriented x3 Psych: COMMON NORMALS: mental status grossly normal Data 08/29/23 05:13 08/29/23 05:13 Micro: Microbiology 08/24/23 15:21 Anaerobic Culture - Preliminary Foot - #1 08/25/23 09:08 Gram Stain - Final Other Source Wound Culture - Preliminary Strep agalactiae - (group b) Coag positive Staphylococcus A&P Assessment and plan (1) Cellulitis of left foot: (2) Non-pressure chronic ulcer of other part of left foot with necrosis of bone: (3) Status post transmetatarsal amputation of right foot: (4) Diabetic peripheral neuropathy associated with type 2 diabetes mellitus: (5) Gangrene of left foot: (6) Diabetic foot ulcer with osteomyelitis: (7) Gangrenous toe: (8) Partial nontraumatic amputation of foot: (9) Diabetes: Plan Left foot diabetic foot infection ? With concerns for gangrene of left foot, left foot osteomyelitis ?Status post left transmetatarsal amputation, 08/25/2023, amputation site left open due to extent of infection, status post surgical invention 08/28/2023 with closure ? Transition to Augmentin, doxycycline ? CRP 236.5, ? Blood cultures, ? Wound cultures, group B strep, coagulase positive staph ? Continue to monitor clinically, ? Full code, ? Lovenox for DVT prophylaxis, Type 2 diabetes mellitus: Low-dose sliding scale, add Lantus 10 units subcu today ABIs, FINDINGS: Right common femoral artery: No occlusion or significant stenosis. Normal waveform. Right superficial femoral artery: No occlusion or significant stenosis. Normal waveform. Right popliteal artery: No occlusion or significant stenosis. Normal waveform. Right calf/foot arteries: No occlusion or significant stenosis in the visualized arteries. Normal waveforms. Dorsalis pedis artery is patent. Left common femoral artery: No occlusion or significant stenosis. Normal waveform. Left superficial femoral artery: No occlusion or significant stenosis. Normal waveform. Left popliteal artery: No occlusion or significant stenosis. Normal waveform. Left calf/foot arteries: No occlusion or significant stenosis in the visualized arteries. Normal waveforms. Dorsalis pedis artery is patent. US/[id number] IMPRESSION: No stenosis or occlusion. History of EGD, found to have a large gastric polyp, unfortunately it was unable to be removed due to equipment failure, he has a follow-up appointment for removal and near future, Awaiting senior living placement Attestations 2 Medical Necessity Statement*: Patient requires hospitalization for left foot infection Diagnoses Cellulitis of left foot L03.116 Non-pressure chronic ulcer of other part of left foot with necrosis of bone L97.524 Status post transmetatarsal amputation of right foot Z89.431 Diabetic peripheral neuropathy associated with type 2 diabetes mellitus E11.42 Gangrene of left foot I96 Diabetic foot ulcer with osteomyelitis E11.621; E11.69; L97.509; M86.9 Gangrenous toe I96 Partial nontraumatic amputation of foot Z89.439 Diabetes E11.9
[2023-08-29] MEDS: HYDROcodone-acetaminophen 5-325 mg Tablet 1 TAB PO (15:16)
[2023-08-29 17:27] LABS: Glucose Point of Care 356 mg/dL (70-110)
[2023-08-29] MEDS: pantoprazole 40 mg SDV IVP (17:49)
[2023-08-29] MEDS: enoxaparin 40 mg/0.4 mL Syringe SUBCUT (17:49)
[2023-08-29 21:23] LABS: Glucose Point of Care 229 mg/dL (70-110)
[2023-08-30] VITALS (8 sets, daily range): BP systolic 120–132; BP diastolic 61–65; PULSE 58–75; RESP 16–19; TEMP 36.3–37; O2SAT 95–98; BMI 21.8
[2023-08-30] MEDS: HYDROcodone-acetaminophen 5-325 mg Tablet 1 TAB PO ×2 (01:21→09:11)
[2023-08-30 05:42] LABS: Basophils % 0.5 %; Eosinophils # 0.3 10^3/uL (0.0-0.8); Eosinophils % 3.6 %; Hematocrit 31.6 % (37-53); Lymphocytes # 1.2 10^3/uL (0.8-4.8); Lymphocytes % 14.3 %; Mean Corpuscular HGB Conc 31.6 g/dL (30-55); Mean Corpuscular Hemoglobin 28.5 pg (27-33); Mean Platelet Volume 9.3 fL (7.4-10.4); Monocytes # 0.5 10^3/uL (0.2-0.9); Monocytes % 6.2 %; Neutrophils # 6.24 10^3/uL (1.8-7.7); Neutrophils % 74.8 %; Nucleated Red Blood Cells % 0 %; Platelet Count 275 10^3/cmm (157-399); Red Blood Count 3.51 10^6/uL (3.85-5.65); Red Cell Distribution Width 11.8 % (12.1-15.1); White Blood Count 8.34 10^3/uL (3.29-11.43)
[2023-08-30 06:04] LABS: Blood Urea Nitrogen 12 mg/dL (8-23); Calcium 8.6 mg/dL (8.5-10.5); Carbon Dioxide 27 mmol/L (22-29); Chloride 99 mmol/L (98-107); Glomerular Filtration Rate 164.9 mL/min (90-130); Glucose 161 mg/dL (65-115); Osmolality Calculated 283 mOsm/kg (285-295); Sodium 135 mmol/L (136-145)
[2023-08-30 06:26] LABS: Glucose Point of Care 182 mg/dL (70-110)
--- NOTE | 2023-08-30 07:40 | PM.PN ---
Subjective Subjective: Patient seen bedside this morning. No acute events overnight. Tolerating regular diet. He is in good spirits. Awaiting placement to a skilled facility. Denies any pain to the lower extremities. Vitals/I&O/Wt Last Vital Signs Temp 98.6 F 08/30/23 04:34 Pulse 68 08/30/23 06:00 Resp 16 08/30/23 04:34 BP 122/65 08/30/23 04:34 Pulse Ox 97 08/30/23 04:34 O2 Del Method Room Air 08/29/23 16:00 O2 Flow Rate 6 08/25/23 09:27 08/29/23 08/30/23 08/30/23 22:59 06:59 14:59 Intake Total 530 / 1010 480 / 1490 Output Total 400 / 400 Balance 130 / 610 480 / 1090 Weight last 48 hrs Weight 170 lb Physical Exam Narrative: GENERAL: Patient is alert and oriented ?3 and in no acute distress. The following is a focused bilateral lower extremity exam. His sister is bedside. VASCULAR: Dorsalis pedis palpable bilaterally. Posterior tibial arteries palpable. Capillary refill less than 5 seconds to the left great toe. Capillary refill less than 5 seconds to the transmetatarsal amputation stump right foot. Calf is supple and nontender proximally and distally. Left foot edema. Increased warmth to the left forefoot. NEUROLOGICAL: Protective sensation intact 0/10 sites, tested with [place] Ava monofilament to bilateral feet. DERMATOLOGICAL: Right transmetatarsal amputation site is well-healed, no erythema, warmth or drainage. Left transmetatarsal amputation site remains well coapted with sutures and skin josé miguel intact. There is no purulence and no donald-incisional erythema, no dehiscence. No proximal lymphangitic streaking at the left leg. MUSCULOSKELETAL: Status post right transmetatarsal amputation. Status post left transmetatarsal amputation. Data 08/30/23 05:14 08/30/23 05:14 Micro: Microbiology 08/24/23 15:21 Anaerobic Culture - Preliminary Foot - #1 08/24/23 14:05 Blood Culture - Final Blood NO GROWTH AFTER 5 DAYS 08/24/23 14:05 Blood Culture - Final Blood NO GROWTH AFTER 5 DAYS 08/25/23 09:08 Gram Stain - Final Other Source Wound Culture - Final Strep agalactiae - (group b) Staphylococcus aureus A&P Assessment and plan (1) Cellulitis of left foot: Resolved (2) Non-pressure chronic ulcer of other part of left foot with necrosis of bone: (3) Status post transmetatarsal amputation of right foot: Incision is well epithelialized at the right transmetatarsal amputation site. Sutures were removed, no dehiscence. At this point patient can be weightbearing on the right lower extremity with a postop shoe. Will require diabetic shoe package with toe filler to allow him to bear more weight on the right lower extremity. (4) Diabetic peripheral neuropathy associated with type 2 diabetes mellitus: (5) Gangrene of left foot: (6) Diabetic foot ulcer with osteomyelitis: (7) Gangrenous toe: Plan Status post left transmetatarsal potation, is clinically stable, cellulitis is resolved. Incision remains well coapted. Patient okay for discharge from podiatry standpoint. Change surgical dressing to left foot at today's visit, incision is well-healing without acute signs of infection. Applied new dressing and a posterior splint to the left lower extremity, may heel touch only for transfers on the left. Guards to the right foot, sutures were removed, incision is well-healed. He may bear weight on the right foot with a postop shoe. Will require diabetic shoe with toe filler so he can increase his activities on the right foot. Planning on 2 weeks of oral antibiotics on transfer to group home facility. Will be following up in podiatry clinic with Dr. Fajardo after discharge. Attestations Medical Necessity Statement*: Gas gangrene Coding Level of Care Code Acute Code for [facility] Diagnoses Cellulitis of left foot L03.116 Non-pressure chronic ulcer of other part of left foot with necrosis of bone L97.524 Status post transmetatarsal amputation of right foot Z89.431 Diabetic peripheral neuropathy associated with type 2 diabetes mellitus E11.42 Gangrene of left foot I96 Diabetic foot ulcer with osteomyelitis E11.621; E11.69; L97.509; M86.9 Gangrenous toe I96
[2023-08-30] MEDS: insulin lispro 100 unit/1 mL SUBCUT ×3 (09:02→17:46)
[2023-08-30] MEDS: ciprofloxacin 500 mg Tablet PO ×2 (09:11→21:59)
[2023-08-30] MEDS: cefdinir 300 MG CAPSULE PO ×2 (09:12→17:47)
[2023-08-30 11:51] LABS: Glucose Point of Care 179 mg/dL (70-110)
--- NOTE | 2023-08-30 13:35 | P.PN_ITS ---
Subjective 2 Subjective: Patient was seen this morning, he has no complaints this morning, no fevers, no chills, no cough Vitals/I&O/Wt Last Vital Signs Temp 97.7 F 08/30/23 12:00 Pulse 64 08/30/23 12:00 Resp 18 08/30/23 12:00 BP 132/65 08/30/23 12:00 Pulse Ox 96 08/30/23 12:00 O2 Del Method Room Air 08/30/23 12:00 O2 Flow Rate 6 08/25/23 09:27 08/29/23 08/30/23 08/30/23 22:59 06:59 14:59 Intake Total 530 / 1010 480 / 1490 720 / 720 Output Total 400 / 400 Balance 130 / 610 480 / 1090 720 / 720 Weight last 48 hrs Weight 77.111 kg Physical Exam 2 Const: COMMON NORMALS: no acute distress and patient oriented x3 Resp: COMMON NORMALS: normal respiratory effort, No retractions, No use of accessory muscles and clear to auscultation bilaterally AUSCULTATION: clear to auscultation bilaterally Cardio: COMMON NORMALS: regular rate, regular rhythm, S1 normal heart sound present and S2 normal heart sound present RATE: regular rate RHYTHM: r egular rhythm HEART SOUNDS: S1 normal heart sound present and S2 normal heart sound present GI: COMMON NORMALS: Normal to inspection, nondistended, normoactive bowel sounds present Extremity: COMMON NORMALS: no pedal edema Neuro: COMMON NORMALS: patient oriented x3 Psych: COMMON NORMALS: mental status grossly normal Data 08/30/23 05:14 08/30/23 05:14 Micro: Microbiology 08/24/23 15:21 Anaerobic Culture - Preliminary Foot - #1 08/24/23 14:05 Blood Culture - Final Blood NO GROWTH AFTER 5 DAYS 08/24/23 14:05 Blood Culture - Final Blood NO GROWTH AFTER 5 DAYS 08/25/23 09:08 Gram Stain - Final Other Source Wound Culture - Final Strep agalactiae - (group b) Staphylococcus aureus A&P Assessment and plan (1) Cellulitis of left foot: (2) Non-pressure chronic ulcer of other part of left foot with necrosis of bone: (3) Status post transmetatarsal amputation of right foot: (4) Diabetic peripheral neuropathy associated with type 2 diabetes mellitus: (5) Gangrene of left foot: (6) Diabetic foot ulcer with osteomyelitis: (7) Gangrenous toe: (8) Partial nontraumatic amputation of foot: (9) Diabetes: Plan Left foot diabetic foot infection ? With concerns for gangrene of left foot, left foot osteomyelitis ?Status post left transmetatarsal amputation, 08/25/2023, amputation site left open due to extent of infection, status post surgical invention 08/28/2023 with closure ? Patient's surgical history of sugars show Staph aureus, group B strep, with evidence of resistance, will switch antibiotics to ciprofloxacin, and cefdinir ? CRP 236.5, ? Blood cultures, ? Wound cultures, group B strep, coagulase positive staph ? Continue to monitor clinically, ? Full code, ? Lovenox for DVT prophylaxis, Type 2 diabetes mellitus: Low-dose sliding scale, add Lantus 10 units subcu today ABIs, FINDINGS: Right common femoral artery: No occlusion or significant stenosis. Normal waveform. Right superficial femoral artery: No occlusion or significant stenosis. Normal waveform. Right popliteal artery: No occlusion or significant stenosis. Normal waveform. Right calf/foot arteries: No occlusion or significant stenosis in the visualized arteries. Normal waveforms. Dorsalis pedis artery is patent. Left common femoral artery: No occlusion or significant stenosis. Normal waveform. Left superficial femoral artery: No occlusion or significant stenosis. Normal waveform. Left popliteal artery: No occlusion or significant stenosis. Normal waveform. Left calf/foot arteries: No occlusion or significant stenosis in the visualized arteries. Normal waveforms. Dorsalis pedis artery is patent. US/[id number] IMPRESSION: No stenosis or occlusion. History of EGD, found to have a large gastric polyp, unfortunately it was unable to be removed due to equipment failure, he has a follow-up appointment for removal and near future, Awaiting snf placement Attestations 2 Medical Necessity Statement*: Patient requires hospitalization, for left foot diabetic foot infection, Diagnoses Cellulitis of left foot L03.116 Non-pressure chronic ulcer of other part of left foot with necrosis of bone L97.524 Status post transmetatarsal amputation of right foot Z89.431 Diabetic peripheral neuropathy associated with type 2 diabetes mellitus E11.42 Gangrene of left foot I96 Diabetic foot ulcer with osteomyelitis E11.621; E11.69; L97.509; M86.9 Gangrenous toe I96 Partial nontraumatic amputation of foot Z89.439 Diabetes E11.9
[2023-08-30 17:13] LABS: Glucose Point of Care 363 mg/dL (70-110)
[2023-08-30] MEDS: enoxaparin 40 mg/0.4 mL Syringe SUBCUT (17:46)
[2023-08-30] MEDS: pantoprazole 40 mg SDV IVP (17:47)
[2023-08-30 22:04] LABS: Glucose Point of Care 187 mg/dL (70-110)
[2023-08-31] VITALS (11 sets, daily range): BP systolic 101–136; BP diastolic 54–76; PULSE 59–75; RESP 14–18; TEMP 36.7–38.3; O2SAT 90–97
[2023-08-31 06:44] LABS: Glucose Point of Care 180 mg/dL (70-110)
[2023-08-31] MEDS: ciprofloxacin 500 mg Tablet PO ×2 (08:31→20:26)
[2023-08-31] MEDS: cefdinir 300 MG CAPSULE PO ×2 (08:31→17:33)
[2023-08-31] MEDS: insulin lispro 100 unit/1 mL SUBCUT ×3 (08:31→17:33)
[2023-08-31] MEDS: HYDROcodone-acetaminophen 5-325 mg Tablet 1 TAB PO (08:54)
[2023-08-31 11:01] LABS: Glucose Point of Care 186 mg/dL (70-110)
[2023-08-31 16:38] LABS: Glucose Point of Care 239 mg/dL (70-110)
--- NOTE | 2023-08-31 17:10 | P.PN_ITS ---
Subjective 2 Subjective: Patient was seen this morning, he has no complaints this morning, no fevers, chills, cough Vitals/I&O/Wt Last Vital Signs Temp 98.0 F 08/31/23 15:58 Pulse 64 08/31/23 15:58 Resp 16 08/31/23 15:58 BP 120/67 08/31/23 15:58 Pulse Ox 97 08/31/23 15:58 O2 Del Method Room Air 08/31/23 15:58 O2 Flow Rate 6 08/25/23 09:27 08/31/23 08/31/23 08/31/23 06:59 14:59 22:59 Intake Total 720 / 720 Output Total 500 / 500 Balance 220 / 220 Weight last 48 hrs Weight 77.111 kg Weight 77.111 kg Physical Exam 2 Const: COMMON NORMALS: no acute distress and patient oriented x3 Resp: COMMON NORMALS: normal respiratory effort, No retractions, No use of accessory muscles and clear to auscultation bilaterally AUSCULTATION: clear to auscultation bilaterally Cardio: COMMON NORMALS: regular rate, regular rhythm, S1 normal heart sound present and S2 normal heart sound present RATE: regular rate RHYTHM: r egular rhythm HEART SOUNDS: S1 normal heart sound present and S2 normal heart sound present GI: COMMON NORMALS: Normal to inspection, nondistended, normoactive bowel sounds present and non-tender Extremity: COMMON NORMALS: no pedal edema Neuro: COMMON NORMALS: patient oriented x3 Psych: COMMON NORMALS: mental status grossly normal Data 08/30/23 05:14 08/30/23 05:14 Micro: Microbiology 08/24/23 15:21 Anaerobic Culture - Preliminary Foot - #1 A&P Assessment and plan (1) Cellulitis of left foot: (2) Non-pressure chronic ulcer of other part of left foot with necrosis of bone: (3) Status post transmetatarsal amputation of right foot: (4) Diabetic peripheral neuropathy associated with type 2 diabetes mellitus: (5) Gangrene of left foot: (6) Diabetic foot ulcer with osteomyelitis: (7) Gangrenous toe: (8) Partial nontraumatic amputation of foot: (9) Diabetes: Plan Left foot diabetic foot infection ? With concerns for gangrene of left foot, left foot osteomyelitis ?Status post left transmetatarsal amputation, 08/25/2023, amputation site left open due to extent of infection, status post surgical invention 08/28/2023 with closure ? Patient's surgical history of sugars show Staph aureus, group B strep, with evidence of resistance, will switch antibiotics to ciprofloxacin, and cefdinir ? Blood cultures, so far negative ? Wound cultures, group B strep, coagulase positive staph ? Continue to monitor clinically, ? Full code, ? Lovenox for DVT prophylaxis, Type 2 diabetes mellitus: Low-dose sliding scale, add Lantus 10 units subcu today ABIs, FINDINGS: Right common femoral artery: No occlusion or significant stenosis. Normal waveform. Right superficial femoral artery: No occlusion or significant stenosis. Normal waveform. Right popliteal artery: No occlusion or significant stenosis. Normal waveform. Right calf/foot arteries: No occlusion or significant stenosis in the visualized arteries. Normal waveforms. Dorsalis pedis artery is patent. Left common femoral artery: No occlusion or significant stenosis. Normal waveform. Left superficial femoral artery: No occlusion or significant stenosis. Normal waveform. Left popliteal artery: No occlusion or significant stenosis. Normal waveform. Left calf/foot arteries: No occlusion or significant stenosis in the visualized arteries. Normal waveforms. Dorsalis pedis artery is patent. US/[id number] IMPRESSION: No stenosis or occlusion. History of EGD, found to have a large gastric polyp, unfortunately it was unable to be removed due to equipment failure, he has a follow-up appointment for removal and near future, Awaiting assisted placement Attestations 2 Medical Necessity Statement*: Patient requires hospitalization, awaiting assisted placement Diagnoses Cellulitis of left foot L03.116 Non-pressure chronic ulcer of other part of left foot with necrosis of bone L97.524 Status post transmetatarsal amputation of right foot Z89.431 Diabetic peripheral neuropathy associated with type 2 diabetes mellitus E11.42 Gangrene of left foot I96 Diabetic foot ulcer with osteomyelitis E11.621; E11.69; L97.509; M86.9 Gangrenous toe I96 Partial nontraumatic amputation of foot Z89.439 Diabetes E11.9
[2023-08-31] MEDS: enoxaparin 40 mg/0.4 mL Syringe SUBCUT (17:33)
[2023-08-31] MEDS: pantoprazole 40 mg SDV IVP (17:33)
[2023-08-31] MEDS: acetaminophen 325 mg Tablet 650 MG PO (20:25)
[2023-08-31 20:56] LABS: Glucose Point of Care 200 mg/dL (70-110)
[2023-09-01 04:05] VITALS: BP 124/65; PULSE 57; RESP 16; TEMP 36.9; O2SAT 94
[2023-09-01 05:57] VITALS: PULSE 63
[2023-09-01 06:45] LABS: Glucose Point of Care 205 mg/dL (70-110)
[2023-09-01 07:17] VITALS: BP 128/69; PULSE 64; RESP 16; TEMP 37.4; O2SAT 96
[2023-09-01] MEDS: ciprofloxacin 500 mg Tablet PO (08:59)
[2023-09-01] MEDS: insulin lispro 100 unit/1 mL SUBCUT ×2 (08:59→12:39)
[2023-09-01] MEDS: cefdinir 300 MG CAPSULE PO (08:59)
[2023-09-01] MEDS: HYDROcodone-acetaminophen 5-325 mg Tablet 1 TAB PO (08:59)
[2023-09-01 10:32] VITALS: BP 116/65; PULSE 60; RESP 16; TEMP 36.7; O2SAT 97
[2023-09-01 10:49] LABS: Glucose Point of Care 301 mg/dL (70-110)
[2023-09-01 10:59] LABS: SARS Covid-2 Antigen negative (Negative)
--- NOTE | 2023-09-01 11:04 | P.DS_ITS ---
Discharge Providers Date of Admission: 08/24/23 14:43 Date of Discharge: September 01, 2023 Attending Provider at Admission: Louie Jolly MD Attending Provider at Discharge: Louie Jolly MD Diagnoses at Discharge Discharge Diagnosis (1) Cellulitis of left foot: Status: Acute (2) Non-pressure chronic ulcer of other part of left foot with necrosis of bone: Status: Acute (3) Status post transmetatarsal amputation of right foot: Status: Acute (4) Diabetic peripheral neuropathy associated with type 2 diabetes mellitus: Status: Acute (5) Gangrene of left foot: Status: Acute (6) Diabetic foot ulcer with osteomyelitis: Status: Acute (7) Gangrenous toe: Status: Acute (8) Partial nontraumatic amputation of foot: Status: Acute Permanent problem details: R trans metatarsal amputation (9) Diabetes: Status: Acute Reason for Visit Reason for Visit: possible infection on feet Hospital Course Hospital Course David Honeycutt is a 68 year old male with a past medical history of noninsulin-dependent type 2 diabetes mellitus, history of diabetic neuropathy, history of recurrent diabetic foot infections, history of right transmetatarsal amputation, recent recent history of hospitalization to [facility] for left foot diabetic foot infection requiring surgical debridement, on IV antibiotics for a week, discharged home, he denies any bacteremia, denies involvement of the bone, he received IV antibiotics for a week he tells me, he tells me that since he getting home his first and second digit started to look more swollen, more red more erythematous, now they are both dusky in appearance, and is starting to develop a open ulceration left foot, plantar aspect, and under the transmetatarsal's, no fevers, chills, nausea, vomiting, abdominal pain, no chest pain, no palpitations, Patient presented to [facility] for left foot diabetic foot infection ? With concerns for gangrene of left foot, left foot osteomyelitis ?Status post left transmetatarsal amputation, 08/25/2023, amputation site left open due to extent of infection, status post surgical invention 08/28/2023 with closure ? Patient's surgical cultures show Staph aureus, group B strep, discharged on ciprofloxacin, and cefdinir ? Blood cultures, so far negative ? Continue to monitor clinically, -Patient is nonweightbearing bilateral extremity, can do heel transfers, continue to daily dressing changes, follow-up with podiatry in 2 weeks, ? Place at nursing facility Physical Exam Const: COMMON NORMALS: no acute distress and patient oriented x3 Resp: COMMON NORMALS: normal respiratory effort, No retractions, No use of accessory muscles and clear to auscultation bilaterally AUSCULTATION: clear to auscultation bilaterally Cardio: COMMON NORMALS: regular rate, regular rhythm, S1 normal heart sound present and S2 normal heart sound present RATE: regular rate RHYTHM: regular rhythm HEART SOUNDS: S1 normal heart sound present and S2 normal heart sound present GI: COMMON NORMALS: Normal to inspection, nondistended, normoactive bowel sounds present and non-tender Extremity: COMMON NORMALS: no pedal edema Neuro: COMMON NORMALS: patient oriented x3 Psych: COMMON NORMALS: mental status grossly normal Discharge Data Studies Completed and Pending Completed Studies During Hospitalization Category Date Time Status XR chest 1V portable [id number] Stat Exams 08/24/23 13:00 Completed XR foot LT min 3V* [id number] Routine Exams 08/27/23 08:47 Completed XR foot LT min 3V* [id number] Stat Exams 08/24/23 13:34 Completed XR foot RT min 3V* [id number] Stat Exams 08/24/23 13:34 Completed US arterial duplex lower extremity bilat [CV arterial Ultrasound 08/24/23 15:28 [place] [id number]] Stat Pending at discharge Category Date Time Status Pathology: Surgical [PTH] Routine Pth 08/25/23 09:13 Received Radiology Impressions Chest X-Ray 08/24/23 13:00 IMPRESSION: No acute findings. Duplex Scan Lower Extremity Artery 08/24/23 15:28 IMPRESSION: No stenosis or occlusion. Foot X-Ray 08/27/23 08:47 IMPRESSION: As above. If there is clinical concern of infection/osteomyelitis, then consider MRI. Laboratory Results WBC 8.34 10^3/uL (3.29-11.43) 08/30/23 05:14 RBC 3.51 10^6/uL (3.85-5.65) L 08/30/23 05:14 Hgb 10.00 g/dL (11.27-16.99) L 08/30/23 05:14 Hct 31.6 % (37-53) L 08/30/23 05:14 MCV 90.0 fl (82-101) 08/30/23 05:14 MCH 28.5 pg (27-33) 08/30/23 05:14 MCHC 31.6 g/dL (30-55) 08/30/23 05:14 RDW 11.8 % (12.1-15.1) L 08/30/23 05:14 Plt Count 275 10^3/cmm (157-399) 08/30/23 05:14 MPV 9.3 fL (7.4-10.4) 08/30/23 05:14 Neut % (Auto) 74.8 % 08/30/23 05:14 Lymph % (Auto) 14.3 % 08/30/23 05:14 Edgar % (Auto) 6.2 % 08/30/23 05:14 Eos % (Auto) 3.6 % 08/30/23 05:14 Baso % (Auto) 0.5 % 08/30/23 05:14 Neut # (Auto) 6.24 10^3/uL (1.8-7.7) 08/30/23 05:14 Lymph # (Auto) 1.2 10^3/uL (0.8-4.8) 08/30/23 05:14 Edgar # (Auto) 0.5 10^3/uL (0.2-0.9) 08/30/23 05:14 Eos # (Auto) 0.3 10^3/uL (0.0-0.8) 08/30/23 05:14 Baso # (Auto) 0.0 10^3/uL (0.0-0.1) 08/30/23 05:14 Nucleated RBC % (auto) 0 % 08/30/23 05:14 Nucleated RBCs # 0.0 /100WBC 08/30/23 05:14 PT 15.00 SECONDS (12.1-14.9) H 08/24/23 14:05 INR 1.14 (0.8-1.2) 08/24/23 14:05 Sodium 135 mmol/L (136-145) L 08/30/23 05:14 Potassium 4.0 mmol/L (3.5-5.1) 08/30/23 05:14 Chloride 99 mmol/L (98-107) 08/30/23 05:14 Carbon Dioxide 27 mmol/L (22-29) 08/30/23 05:14 Anion Gap 13.0 (5-19) 08/30/23 05:14 BUN 12 mg/dL (8-23) 08/30/23 05:14 Creatinine 0.5 mg/dL (0.7-1.2) L 08/30/23 05:14 GFR Calculation 164.9 mL/min (90-130) H 08/30/23 05:14 Glucose 161 mg/dL (65-115) H 08/30/23 05:14 POC Glucose 301 mg/dL (70-110) H 09/01/23 10:33 Estimat Average Glucose 148 08/24/23 14:05 Hemoglobin A1c 6.8 % (4.0-6.0) H 08/24/23 14:05 Calculated Osmolality 283 mOsm/kg (285-295) L 08/30/23 05:14 Lactic Acid 1.3 mmol/L (0.5-2.2) 08/24/23 14:05 Calcium 8.6 mg/dL (8.5-10.5) 08/30/23 05:14 Phosphorus 3.0 mg/dL (2.5-4.5) 08/27/23 05:25 Magnesium 1.7 mg/dL (1.7-2.3) 08/27/23 05:25 Total Bilirubin 0.3 mg/dL (0.15-1.2) 08/27/23 05:25 AST 17 U/L (0-40) 08/27/23 05:25 ALT 15 U/L (0-41) 08/27/23 05:25 Alkaline Phosphatase 95 U/L (40-130) 08/27/23 05:25 C-Reactive Protein 236.5 mg/L (0.0-4.9) H 08/24/23 14:05 NT-Pro-B Natriuret Pep 504 pg/mL (0-125) H 08/24/23 14:05 Total Protein 6.3 g/dL (6.6-8.7) L 08/27/23 05:25 Albumin 2.5 g/dL (3.5-5.2) L 08/27/23 05:25 Globulin 3.8 g/dL (1.3-4.6) 08/27/23 05:25 Triglycerides 121 mg/dL (0-150) 08/24/23 14:05 Cholesterol 111 mg/dL (0-200) 08/24/23 14:05 LDL Cholesterol, Calc 64 mg/dL (50-129) 08/24/23 14:05 HDL Cholesterol 23 mg/dL (60-100) L 08/24/23 14:05 LDL/HDL Ratio 2.78 RATIO (0.00-3.22) 08/24/23 14:05 Cholesterol/HDL Ratio 4.83 mg/dL (1.0-5.00) 08/24/23 14:05 Procalcitonin 0.18 ng/mL (0-0.5) 08/24/23 14:05 TSH 3.89 uIU/mL (0.27-4.20) 08/24/23 14:05 Vancomycin Trough 17.1 ug/mL (10-15) H 08/28/23 01:50 SARS-CoV-2 Ag (Rapid) negative (Negative) 09/01/23 10:08 Vitals Last Vital Signs Temp 98.1 F 09/01/23 10:32 Pulse 60 09/01/23 10:32 Resp 16 09/01/23 10:32 BP 116/65 09/01/23 10:32 Pulse Ox 97 09/01/23 10:32 O2 Del Method Room Air 09/01/23 10:32 O2 Flow Rate 6 08/25/23 09:27 Discharge Plan Discharge Patient Disposition: Xfer SNF Condition: Stable Prescriptions: New cefdinir 300 mg Capsule 300 mg PO BID 7 Days Qty: 14 0RF insulin lispro [Humalog U-100 Insulin] 100 unit/mL Solution See Rx Instructions .ROUTE .COMPLEX Qty: 10 0RF Rx Instructions: Inject, subcut, 3 times daily, after meals, based on sliding scale provided ciprofloxacin HCl 500 mg Tablet 500 mg PO BID@0900,2100 7 Days Qty: 14 0RF Continued clobetasol 0.05 % cream 1 applic TOPICAL BID metformin 500 mg tablet extended release 24 hr 1,000 mg PO DAILY Farxiga 10 mg tablet 10 mg PO QAM Discontinued glipizide 10 mg tablet 10 mg PO BID cephalexin 500 mg capsule 500 mg PO QID Discharge Orders: Discharge Order (Routine); Ordered 09/01/23 Ordered By: Louie Jloly Referrals: [facility] [Outside] Alex Ferris FNP [Family Provider] - Anthony Fajardo DPM [Physician] - 2 weeks Discharge Diet: Cardiac Discharge Activity: Resume usual activity Patient Instructions: Opioid Safety Activity Restrictions/Additional Instructions: Orders from Dr. Fajardo: Heel touch for transfers on the left foot. Elevate left foot while resting. Weightbearing as tolerated with postop shoe on the right foot. Keep current dressing clean, dry and intact on left lower extremity. Will be changed by Dr. Fajardo with outpatient follow-up. Planning on 2 weeks of oral antibiotics on transfer to snf facility. Contact Dr. Fajardo with any postoperative questions or concerns, call or text is okay all number [phone] -Please monitor your blood sugars closely -Monitor your blood sugars 3 times daily as after meals -Please record your blood sugars, and a blood sugar log -For your NovoLog -Please inject blood sugar after meals based on sliding scale provided -Do not inject insulin if you do not eat as hypoglycemia kills -This is a NovoLog sliding scale -Insulin sliding ?fingerstick? Insulin ?141-180?0 units/sq 181-220?2 units/sq ?221-260?4 units/sq ?261-300 6 units/sq ?301-350?8 units/sq ?351-400 10 units/sq ?401-450?12 units/sq >450? 14units/sq -If your blood sugar is greater than 500 go to the emergency room -If your blood sugar is less than 60 or at anytime you feel lightheaded or dizzy or diaphoretic or have chest palpitations check your blood sugar, and eat a hard candy or drink orange juice and go immediately to the emergency room -Remember hypoglycemia kills, so if his blood sugar is less than 60 we have to increase it by taking in a sugary meal such as a hard candy or orange juice and go to the emergency room -If you have any questions please call us where here to help Discharge Attestations Time Spent in Discharge Care*: greater than 30 min Quality Metrics Clinical Quality Measures [ No reported AMI, CVA or VTE this stay] Coding Level of Care Code 66790 Total time (in minutes) for Discharge: 45 Diagnoses Cellulitis of left foot L03.116 Non-pressure chronic ulcer of other part of left foot with necrosis of bone L97.524 Status post transmetatarsal amputation of right foot Z89.431 Diabetic peripheral neuropathy associated with type 2 diabetes mellitus E11.42 Gangrene of left foot I96 Diabetic foot ulcer with osteomyelitis E11.621; E11.69; L97.509; M86.9 Gangrenous toe I96 Partial nontraumatic amputation of foot Z89.439 Diabetes E11.9
[2023-09-01 12:49] VITALS: BP 116/65; PULSE 60; RESP 16; TEMP 36.7; O2SAT 97
== END 2023-09-01 12:51 | disposition skilled nursing facility (03) | DRG 239 ==
LOC: ER 15:19 → MEDSURG 15:35
PROVIDERS: Internal Medicine; Podiatrist Foot & Ankle Surgery; Admitting Provider Family Medicine; Emergency Provider Family Medicine; Family Provider Nurse Practitioner; Visit Provider Family Medicine
PROC: 0Y6N0Z4 Detachment at Left Foot, Complete 1st Ray, Open Approach (ICD-10-PCS; CPT 28805; principal; 2023-08-25 07:00)
PROC: 0YQNXZZ Repair Left Foot, External Approach (ICD-10-PCS; principal; 2023-08-28 07:00)
DX: E11.52 Type 2 diabetes mellitus with diabetic peripheral angiopathy with gangrene (principal); A48.0 Gas gangrene; L03.116 Cellulitis of left lower limb; M86.9 Osteomyelitis, unspecified; E11.69 Type 2 diabetes mellitus with other specified complication; E11.42 Type 2 diabetes mellitus with diabetic polyneuropathy; E11.621 Type 2 diabetes mellitus with foot ulcer; L97.524 Non-pressure chronic ulcer of other part of left foot with necrosis of bone; B95.8 Unspecified staphylococcus as the cause of diseases classified elsewhere; B95.1 Streptococcus, group B, as the cause of diseases classified elsewhere; Z89.411 Acquired absence of right great toe; Z89.421 Acquired absence of other right toe(s); Z11.52 Encounter for screening for COVID-19; Z79.84 Long term (current) use of oral hypoglycemic drugs; Z87.891 Personal history of nicotine dependence
CPT/HCPCS: 36415; 36416; 71045; 73630; 80048; 80053; 80061; 80202; 82962; 83036; 83605; 83735; 83880; 84100; 84145; 84443; 85025; 85610; 86140; 87040; 87070; 87075; 87077; 87186; 87205; 87426; 88307; 88311; 93005; 93010; 93925; 94664; 96365; 96372; 97110; 97161; 97165; 97530; 97760; 99285; C9113; J1170; J1650; J1815; J2270; J2371; J2543; J2704; J3010; J3370; J7030; J7050; L3260

== ENCOUNTER → 2023-09-06 14:29 | Outpatient (BNVA) | payer MEDICARE, MEDICAID, SELFPAY | PROVIDERS: Family Provider Nurse Practitioner; Visit Provider Podiatrist Foot & Ankle Surgery | DX: Z89.431 Acquired absence of right foot (principal); Z89.432 Acquired absence of left foot | CPT/HCPCS: 99024; 99213 ==

== ENCOUNTER → 2023-09-21 15:05 | Outpatient (BNVA) | payer MEDICARE, MEDICAID, SELFPAY | PROVIDERS: Family Provider Nurse Practitioner; Visit Provider Podiatrist Foot & Ankle Surgery | DX: Z89.431 Acquired absence of right foot (principal); Z89.432 Acquired absence of left foot; E11.9 Type 2 diabetes mellitus without complications; Z79.84 Long term (current) use of oral hypoglycemic drugs; Z79.4 Long term (current) use of insulin | CPT/HCPCS: 99213 ==

== ENCOUNTER → 2023-10-05 14:52 | Outpatient (BNVA) | payer MEDICARE, MEDICAID, SELFPAY | PROVIDERS: Family Provider Nurse Practitioner; Visit Provider Podiatrist Foot & Ankle Surgery | DX: Z89.432 Acquired absence of left foot; Z89.431 Acquired absence of right foot; E11.42 Type 2 diabetes mellitus with diabetic polyneuropathy; T87.81 Dehiscence of amputation stump; Y83.8 Other surgical procedures as the cause of abnormal reaction of the patient, or of later complication, without mention of misadventure at the time of the procedure; Z79.4 Long term (current) use of insulin; Z79.84 Long term (current) use of oral hypoglycemic drugs | CPT/HCPCS: 73630; 99214 ==

== ENCOUNTER 2023-10-11 10:15 | Day surgery (SDC) | payer MEDICARE, MEDICAID, SELFPAY ==
[2023-10-11] VITALS (7 sets, daily range): BP systolic 121–140; BP diastolic 67–89; PULSE 55–69; RESP 16–18; TEMP 36.1–36.5; O2SAT 94–100; BMI 21.8
--- NOTE | 2023-10-11 10:16 | P.HPUD_ITS ---
Surgery/Procedure H&P Update DATE OF PROCEDURE: October 11, 2023 DATE H&P PERFORMED: 10/05/23 H&P UPDATE INFORMATION: I have reviewed H&P completed within last 30 days, I have examined patient prior to procedure, No changes to prior documentation and H&P is in [facility] [place] on date indicated CHANGES TO PREVIOUS DOCUMENTATION: None PLANNED PROCEDURE: Operation Date: 10/11/23 11:50 Proposed Procedures p ?Incision and debridement left foot with application of wound VAC 76275,T87.81,L97.522(Left) - Anthony Fajardo DPM
--- NOTE | 2023-10-11 10:17 | P.OP_ITS ---
Operative Report Date of procedure: October 11, 2023 Pre-op diagnosis: Dehiscence left transmetatarsal amputation Chronic nonpressure ulceration left foot exposed to myofascial layer Post-op diagnosis: Same Procedure done: Incision and debridement left foot down to and including myofascial layer. CPT code 35742 Implants: Wound VAC granular foam Specimens removed/disposition: No surgical specimen sent, patient has been on antibiotics long-term. Surgeon: Anthony Fajardo DPM Binder And Box Builder: Marline Estimated blood loss: 5 13 IV fluids: 0 Urine output: 0 Complications: None Findings: Devitalized soft tissue down to and including myofascial layer Brief History: Patient examined and evaluated, findings and treatment options discussed with patient at length. He has had a dehiscence of his left transmetatarsal potation site with devitalized tissue exposed to fat layer. Recommending continuation of antibiotics, continue with Betadine wet-to-dry once daily dressing change. Discussed incision and debridement with application of wound VAC as an effort to preserve and salvage his foot. He is at risk for below-knee amputation given the extent of his infection and poor response to transmetatarsal amputation. Patient is aware of this. I reviewed at length with the patient, the risks, potential complications, benefits, alternatives, expectations, and typical outcomes associated with the surgery. The risks and potential complications were explained in detail, including but not limited to infection, wound dehiscence or soft tissue complications, bleeding and hematoma, chronic edema, neuritis or nerve damage producing numbness or chronic pain, CRPS, failure to relieve pain or worsening pain, thick / painful / unsightly scar, limited motion / stiffness, malposition, delayed union, malunion, or nonunion, fracture, reaction to implants, anesthetic complications, venous thromboembolism, and deformity recurrence. I discussed the notion of no regrets with the patient as it pertains to complications and outcomes. The patient seemed to understand the nature of the proposed care and required convalescence. They asked appropriate questions, answered to their satisfaction. They are aware no guarantees can be made as to a satisfactory outcome and they understand there may be other possible unforeseen complications or outcomes not listed here that will be treated accordingly if they arise. Patient is at risk for further delayed healing, further infection and ultimately patient is at risk for higher level of amputation. There were no written or implied guarantees given to the patient. They gave informed consent to proceed. Procedure: Under mild sedation the patient was brought to the operating room and remained on the gurney in supine position. A timeout was performed. Anesthesia was then administered by the anesthesia service. Local anesthesia injected by myself consisting of 20 cc of 1% lidocaine plain and a left ankle block fashion. Well- padded pneumatic tourniquet was applied to the left ankle. The left lower extremity was scrubbed, prepped and draped utilizing normal aseptic technique. Left leg was elevated and the ankle tourniquet was inflated to 250 mmHg. Attention was directed to the left transmetatarsal amputation stump which demonstrated dehiscence predebridement measuring 12.5 cm x 3 cm x 2 cm exposed tendon, muscle and fascia that was devitalized. Utilizing pickups and a 15 blade incision margins were resected to healthy tissue circumferentially and debrided down to the base of devitalized tissue down to and including myofascial layer, this was performed with pickups, 15 blade and rongeur. The incision was irrigated with copious amounts of sterile skin solution. No further devitalized tissue was appreciated. The postdebridement wound measurements 13.5 cm x 3.5 cm x 2 cm. All bleeders were ligated and cauterized as necessary. Further irrigation was performed with saline solution. The incision was then held in approximation and dressed with a granular foam wound VAC dressing set at 125 mmHg continuous negative pressure with excellent seal, no leaks appreciated. Tourniquet was deflated and a prompt hyperemic response was noted to the dorsum of the left foot. Dressing was then applied consisting of sterile 4 x 4's, Kerlix and multi layer and padded Mireles posterior compression splint with light compression less than 25 mmHg. Patient tolerated the procedure and anesthesia well and was transferred to the PACU with vital signs stable and vascular status intact. Following a period of postoperative monitoring he will be discharged home is to be strict nonweightbearing to left lower extremity. He is to elevate his left foot while resting. Will continue oral antibiotics previously selected based off of cultures taken prior to antibiotic therapy. Will continue with home health twice weekly wound VAC dressing change and once weekly dressing change of the wound VAC in podiatry clinic.
--- NOTE | 2023-10-11 10:17 | W.PM.BPON ---
Date of Procedure: 10/11/23 Surgeon: Anthony Fajardo DPM Cloud Security Architect(s): Ty Procedure(s) performed: Incision and debridement with application of wound VAC left foot. Findings of the procedure(s): Devitalized tissue down to myofascial layer left foot. Estimated blood loss: 5 Specimen(s) removed: None Post-operative diagnosis: Dehiscence of left transmetatarsal amputation. Patient tolerated procedure and anesthesia well, no complications encountered.
[2023-10-11] MEDS: sodium chloride 0.9% 1,000 ML 30 ML IV (10:48)
[2023-10-11 10:53] LABS: Glucose Point of Care 217 mg/dL (70-110)
--- NOTE | 2023-10-11 10:56 | ANES.PREANE2 ---
Pre-Anesthetic Assessment Height/Weight: Height 1.88 m Weight 77.111 kg Temp Pulse Resp BP Pulse Ox O2 Del Method 97.7 F 65 18 121/67 100 Room Air 10/11/23 10:30 10/11/23 10:30 10/11/23 10:30 10/11/23 10:30 10/11/23 10:30 10/11/23 10:30 Preop Diagnosis: Left diabetic foot infection Operation Date: 10/11/23 11:50 Proposed Procedures p ?Incision and debridement left foot with application of wound VAC 21203,T87.81,L97.522(Left) - Anthony Fajardo DPM Familial anesthetic complications: none Was Beta Phillip taken within 24 hours: N/A Was Clonidine taken within 24 hours: N/A Last intake: Intake Last Liquid Date 10/10/23 Last Liquid Time 22:00 Last Solid Date 10/10/23 Last Solid Time 22:00 Social No alcohol and No tobacco Exam alert and oriented x 3 Airway Submandibular: within normal limits Cervical ROM: within normal limits Mallampati: Class I Dentition: chipped CV/HEM Anemia and Hypertension Metabolic Diabetes Mellitus Neuropsych Neuropathy Anesthetic Plan ASA status: 3 Anesthesia: General and MAC Medications/Allergies Home Medications Medication Instructions Recorded Confirmed Last Taken Type dapagliflozin propanediol 10 mg 10 mg PO QAM 08/25/23 10/10/23 10/10/23 History tablet (Farxiga) cam walker #1 ea 09/06/23 10/05/23 Unknown Rx cefdinir 300 mg capsule 300 mg PO BID 2 weeks #14 caps 10/05/23 10/10/23 10/10/23 Rx ciprofloxacin HCl 500 mg tablet 500 mg PO Q12H 7 days #14 tabs 10/05/23 10/10/23 10/10/23 Rx Diabetic shoes #1 ea 10/06/23 10/06/23 Unknown Rx glipizide 2.5 mg tablet 2.5 mg PO BID 10/10/23 10/10/23 10/10/23 History lisinopril 5 mg tablet 5 mg PO DAILY 10/10/23 10/10/23 10/10/23 History Allergies Allergy/AdvReac Type Severity Reaction Status Date / Time clindamycin Allergy Unknown Verified 10/11/23 10:25 soy Allergy Unknown Verified 10/11/23 10:25 Current Medications Generic Name Dose Route Start Last Admin Trade Name Freq PRN Reason Stop Dose Admin Sodium Chloride 1,000 mls @ 30 mls/hr 10/11/23 10:30 10/11/23 10:48 Sodium Chloride 0.9% IV 10/12/23 10:29 30 mls/hr .Q24H GUILLERMO Administration PFSH Anesthesia Medical History Partial nontraumatic amputation of foot R trans metatarsal amputation Diabetes Social History Smoking and tobacco/nicotine status: never used tobacco/nicotine Alcohol intake: never Substance/Drug Use: current Data Anesthesia Cardiac Studies: No Data to Display
[2023-10-11] MEDS: dalbavancin 1,500 MG in dextrose 5% 250 ML 500 MG IV (12:10)
[2023-10-11] MEDS: lidocaine 2% INJ 20 mL 30 ML INJECTION (12:39)
--- NOTE | 2023-10-11 19:31 | ANE.PACU2 ---
Inpatient post-anesthesia follow up: Airway intact: Yes Vital signs: Temperature 97.7 F Pulse Rate 61 Respiratory Rate 18 Blood Pressure 140/85 Pulse Oximetry 95 Oxygen Delivery Me thod Room Air Oxygen Flow Rate Fraction of Inspir ed Oxygen Hydration adequate: Yes Nausea and vomiting: No Pain level: 1 Mental status: Baseline
== END 2023-10-11 14:12 | disposition home or self-care (01) ==
PROVIDERS: PCP Internal Medicine; Visit Provider Podiatrist Foot & Ankle Surgery
PROC: (CPT 28002; principal; 2023-10-11 11:50)
DX: T87.81 Dehiscence of amputation stump (principal); L97.522 Non-pressure chronic ulcer of other part of left foot with fat layer exposed; Z79.84 Long term (current) use of oral hypoglycemic drugs; E11.42 Type 2 diabetes mellitus with diabetic polyneuropathy; Z89.431 Acquired absence of right foot; I10 Essential (primary) hypertension; E11.621 Type 2 diabetes mellitus with foot ulcer; Y83.8 Other surgical procedures as the cause of abnormal reaction of the patient, or of later complication, without mention of misadventure at the time of the procedure
CPT/HCPCS: 28002; 36416; 82962; J0875; J2704; J3010; J7030; J7060

== ENCOUNTER → 2023-10-19 14:46 | Outpatient (BNVA) | payer MEDICARE, MEDICAID, SELFPAY | PROVIDERS: PCP Internal Medicine; Visit Provider Podiatrist Foot & Ankle Surgery | DX: Z89.432 Acquired absence of left foot (principal); Z89.431 Acquired absence of right foot; E11.42 Type 2 diabetes mellitus with diabetic polyneuropathy; T87.81 Dehiscence of amputation stump; Z98.890 Other specified postprocedural states; Y83.8 Other surgical procedures as the cause of abnormal reaction of the patient, or of later complication, without mention of misadventure at the time of the procedure | CPT/HCPCS: 99213 ==

== ENCOUNTER → 2023-10-25 10:06 | Outpatient (BNVA) | payer MEDICARE, MEDICAID, SELFPAY | PROVIDERS: PCP Internal Medicine; Visit Provider Podiatrist Foot & Ankle Surgery | DX: Z89.432 Acquired absence of left foot (principal); Z89.431 Acquired absence of right foot; E11.42 Type 2 diabetes mellitus with diabetic polyneuropathy; T87.81 Dehiscence of amputation stump; Z98.890 Other specified postprocedural states; Y83.8 Other surgical procedures as the cause of abnormal reaction of the patient, or of later complication, without mention of misadventure at the time of the procedure | CPT/HCPCS: 99213 ==

== ENCOUNTER → 2023-11-01 10:04 | Outpatient (BNVA) | payer MEDICARE, MEDICAID, SELFPAY | PROVIDERS: PCP Internal Medicine; Visit Provider Podiatrist Foot & Ankle Surgery | DX: Z89.431 Acquired absence of right foot (principal); E11.42 Type 2 diabetes mellitus with diabetic polyneuropathy; T87.81 Dehiscence of amputation stump; Z89.432 Acquired absence of left foot; Z98.890 Other specified postprocedural states; Y83.8 Other surgical procedures as the cause of abnormal reaction of the patient, or of later complication, without mention of misadventure at the time of the procedure | CPT/HCPCS: 11043 ==

== ENCOUNTER → 2023-11-08 13:31 | Outpatient (BNVA) | payer MEDICARE, MEDICAID, SELFPAY | PROVIDERS: PCP Internal Medicine; Visit Provider Podiatrist Foot & Ankle Surgery | DX: Z89.431 Acquired absence of right foot (principal); E11.42 Type 2 diabetes mellitus with diabetic polyneuropathy; T87.81 Dehiscence of amputation stump; Z89.432 Acquired absence of left foot; Z98.890 Other specified postprocedural states; Y83.3 Surgical operation with formation of external stoma as the cause of abnormal reaction of the patient, or of later complication, without mention of misadventure at the time of the procedure | CPT/HCPCS: 99213 ==

== ENCOUNTER → 2023-11-15 14:03 | Outpatient (BNVA) | payer MEDICARE, MEDICAID, SELFPAY | PROVIDERS: PCP Internal Medicine; Visit Provider Podiatrist Foot & Ankle Surgery | DX: Z89.431 Acquired absence of right foot (principal); E11.42 Type 2 diabetes mellitus with diabetic polyneuropathy; T87.81 Dehiscence of amputation stump; Z89.432 Acquired absence of left foot; Z98.890 Other specified postprocedural states; L97.421 Non-pressure chronic ulcer of left heel and midfoot limited to breakdown of skin; Y83.8 Other surgical procedures as the cause of abnormal reaction of the patient, or of later complication, without mention of misadventure at the time of the procedure; E11.621 Type 2 diabetes mellitus with foot ulcer | CPT/HCPCS: 29515; 99213; A4590 ==

== ENCOUNTER → 2023-11-22 15:09 | Outpatient (BNVA) | payer MEDICARE, MEDICAID, SELFPAY | PROVIDERS: PCP Internal Medicine; Visit Provider Podiatrist Foot & Ankle Surgery | DX: Z89.431 Acquired absence of right foot (principal); E11.42 Type 2 diabetes mellitus with diabetic polyneuropathy; T87.81 Dehiscence of amputation stump; E11.621 Type 2 diabetes mellitus with foot ulcer; L97.421 Non-pressure chronic ulcer of left heel and midfoot limited to breakdown of skin; Z89.432 Acquired absence of left foot; Z98.890 Other specified postprocedural states; Y83.8 Other surgical procedures as the cause of abnormal reaction of the patient, or of later complication, without mention of misadventure at the time of the procedure; X58.XXXA Exposure to other specified factors, initial encounter | CPT/HCPCS: 99213 ==

== ENCOUNTER → 2023-11-29 13:31 | Outpatient (BNVA) | payer MEDICARE, MEDICAID, SELFPAY | PROVIDERS: PCP Internal Medicine; Visit Provider Podiatrist Foot & Ankle Surgery | DX: Z98.890 Other specified postprocedural states (principal); Z89.431 Acquired absence of right foot; E11.42 Type 2 diabetes mellitus with diabetic polyneuropathy; T87.81 Dehiscence of amputation stump; L97.421 Non-pressure chronic ulcer of left heel and midfoot limited to breakdown of skin; Z89.432 Acquired absence of left foot; Y83.8 Other surgical procedures as the cause of abnormal reaction of the patient, or of later complication, without mention of misadventure at the time of the procedure | CPT/HCPCS: 36415; 73630; 80053; 85025; 86140; 99213 ==

== ENCOUNTER → 2023-12-06 15:01 | Outpatient (BNVA) | payer MEDICARE, MEDICAID, SELFPAY | PROVIDERS: PCP Internal Medicine; Visit Provider Podiatrist Foot & Ankle Surgery | DX: Z98.890 Other specified postprocedural states (principal); E11.9 Type 2 diabetes mellitus without complications; I50.30 Unspecified diastolic (congestive) heart failure; I48.91 Unspecified atrial fibrillation; J44.9 Chronic obstructive pulmonary disease, unspecified; L08.9 Local infection of the skin and subcutaneous tissue, unspecified; B95.8 Unspecified staphylococcus as the cause of diseases classified elsewhere; Z89.431 Acquired absence of right foot; E11.42 Type 2 diabetes mellitus with diabetic polyneuropathy; T87.81 Dehiscence of amputation stump; Y83.8 Other surgical procedures as the cause of abnormal reaction of the patient, or of later complication, without mention of misadventure at the time of the procedure; E11.621 Type 2 diabetes mellitus with foot ulcer; L97.421 Non-pressure chronic ulcer of left heel and midfoot limited to breakdown of skin; Z89.432 Acquired absence of left foot | CPT/HCPCS: 36415; 80053; 85025; 85651; 86140; 99213 ==

== ENCOUNTER → 2023-12-13 13:35 | Outpatient (BNVA) | payer MEDICARE, MEDICAID, SELFPAY | PROVIDERS: PCP Internal Medicine; Visit Provider Podiatrist Foot & Ankle Surgery | DX: Z89.431 Acquired absence of right foot (principal); E11.42 Type 2 diabetes mellitus with diabetic polyneuropathy; T87.81 Dehiscence of amputation stump; E11.621 Type 2 diabetes mellitus with foot ulcer; L97.421 Non-pressure chronic ulcer of left heel and midfoot limited to breakdown of skin; Z89.432 Acquired absence of left foot; Y79.2 Prosthetic and other implants, materials and accessory orthopedic devices associated with adverse incidents | CPT/HCPCS: 99213 ==

== ENCOUNTER → 2023-12-20 13:12 | Outpatient (BNVA) | payer MEDICARE, MEDICAID, SELFPAY | PROVIDERS: PCP Internal Medicine; Visit Provider Podiatrist Foot & Ankle Surgery | DX: Z89.431 Acquired absence of right foot (principal); E11.42 Type 2 diabetes mellitus with diabetic polyneuropathy; T87.81 Dehiscence of amputation stump; Z89.432 Acquired absence of left foot; L97.523 Non-pressure chronic ulcer of other part of left foot with necrosis of muscle; E11.621 Type 2 diabetes mellitus with foot ulcer | CPT/HCPCS: 11043 ==

== ENCOUNTER → 2023-12-27 14:12 | Outpatient (BNVA) | payer MEDICARE, MEDICAID, SELFPAY | PROVIDERS: PCP Internal Medicine; Visit Provider Podiatrist Foot & Ankle Surgery | DX: Z89.432 Acquired absence of left foot (principal); E11.42 Type 2 diabetes mellitus with diabetic polyneuropathy; T87.81 Dehiscence of amputation stump; E11.621 Type 2 diabetes mellitus with foot ulcer; L97.523 Non-pressure chronic ulcer of other part of left foot with necrosis of muscle; Z89.431 Acquired absence of right foot; Y83.8 Other surgical procedures as the cause of abnormal reaction of the patient, or of later complication, without mention of misadventure at the time of the procedure | CPT/HCPCS: 99213 ==

== ENCOUNTER → 2024-01-10 12:57 | Outpatient (BNVA) | payer MEDICARE, MEDICAID, SELFPAY | PROVIDERS: PCP Internal Medicine; Visit Provider Podiatrist Foot & Ankle Surgery | DX: Z89.431 Acquired absence of right foot (principal); E11.42 Type 2 diabetes mellitus with diabetic polyneuropathy; T87.81 Dehiscence of amputation stump; L97.523 Non-pressure chronic ulcer of other part of left foot with necrosis of muscle; Z89.432 Acquired absence of left foot; Y83.8 Other surgical procedures as the cause of abnormal reaction of the patient, or of later complication, without mention of misadventure at the time of the procedure; E11.621 Type 2 diabetes mellitus with foot ulcer | CPT/HCPCS: 99213 ==

== ENCOUNTER → 2024-01-24 11:21 | Outpatient (BNVA) | payer MEDICARE, MEDICAID, SELFPAY | PROVIDERS: PCP Internal Medicine; Visit Provider Podiatrist Foot & Ankle Surgery | DX: E11.42 Type 2 diabetes mellitus with diabetic polyneuropathy (principal); T87.81 Dehiscence of amputation stump; L97.523 Non-pressure chronic ulcer of other part of left foot with necrosis of muscle; Z89.432 Acquired absence of left foot; Z89.431 Acquired absence of right foot; E11.621 Type 2 diabetes mellitus with foot ulcer | CPT/HCPCS: 99213 ==

== ENCOUNTER → 2024-02-07 11:09 | Outpatient (BNVA) | payer MEDICARE, MEDICAID, SELFPAY | PROVIDERS: PCP Internal Medicine; Visit Provider Podiatrist Foot & Ankle Surgery | DX: Z89.431 Acquired absence of right foot (principal); E11.42 Type 2 diabetes mellitus with diabetic polyneuropathy; T87.81 Dehiscence of amputation stump; L97.523 Non-pressure chronic ulcer of other part of left foot with necrosis of muscle; Z89.432 Acquired absence of left foot; Y83.8 Other surgical procedures as the cause of abnormal reaction of the patient, or of later complication, without mention of misadventure at the time of the procedure; E11.621 Type 2 diabetes mellitus with foot ulcer | CPT/HCPCS: 11042 ==

== ENCOUNTER → 2024-02-21 11:07 | Outpatient (BNVA) | payer MEDICARE, MEDICAID, SELFPAY | PROVIDERS: PCP Internal Medicine; Visit Provider Podiatrist Foot & Ankle Surgery | DX: Z89.431 Acquired absence of right foot (principal); E11.42 Type 2 diabetes mellitus with diabetic polyneuropathy; T87.81 Dehiscence of amputation stump; L97.523 Non-pressure chronic ulcer of other part of left foot with necrosis of muscle; Z89.432 Acquired absence of left foot | CPT/HCPCS: 99213 ==

== ENCOUNTER → 2024-03-06 10:15 | Outpatient (BNVA) | payer MEDICARE, MEDICAID, SELFPAY | PROVIDERS: PCP Internal Medicine; Visit Provider Podiatrist Foot & Ankle Surgery | DX: Z51.89 Encounter for other specified aftercare (principal); Z89.431 Acquired absence of right foot; E11.42 Type 2 diabetes mellitus with diabetic polyneuropathy; T87.81 Dehiscence of amputation stump; L97.523 Non-pressure chronic ulcer of other part of left foot with necrosis of muscle; Z89.432 Acquired absence of left foot; Y83.8 Other surgical procedures as the cause of abnormal reaction of the patient, or of later complication, without mention of misadventure at the time of the procedure; E11.621 Type 2 diabetes mellitus with foot ulcer | CPT/HCPCS: 99213 ==

== ENCOUNTER → 2024-03-19 10:24 | Outpatient (BNVA) | payer MEDICARE, MEDICAID, SELFPAY | PROVIDERS: PCP Internal Medicine; Visit Provider Podiatrist Foot & Ankle Surgery | DX: Z89.431 Acquired absence of right foot (principal); E11.42 Type 2 diabetes mellitus with diabetic polyneuropathy; T87.81 Dehiscence of amputation stump; L97.523 Non-pressure chronic ulcer of other part of left foot with necrosis of muscle; Z89.432 Acquired absence of left foot; Y83.8 Other surgical procedures as the cause of abnormal reaction of the patient, or of later complication, without mention of misadventure at the time of the procedure | CPT/HCPCS: 99213 ==

== ENCOUNTER → 2024-04-10 09:45 | Outpatient (BNVA) | payer MEDICARE, MEDICAID, SELFPAY | PROVIDERS: PCP Internal Medicine; Visit Provider Podiatrist Foot & Ankle Surgery | DX: Z89.431 Acquired absence of right foot (principal); E11.42 Type 2 diabetes mellitus with diabetic polyneuropathy; T87.81 Dehiscence of amputation stump; L97.523 Non-pressure chronic ulcer of other part of left foot with necrosis of muscle; Z89.432 Acquired absence of left foot; Y83.8 Other surgical procedures as the cause of abnormal reaction of the patient, or of later complication, without mention of misadventure at the time of the procedure; E11.621 Type 2 diabetes mellitus with foot ulcer | CPT/HCPCS: 99213 ==

== ENCOUNTER → 2024-05-01 10:21 | Outpatient (BNVA) | payer MEDICARE, MEDICAID, SELFPAY | PROVIDERS: PCP Internal Medicine; Visit Provider Podiatrist Foot & Ankle Surgery | DX: Z89.431 Acquired absence of right foot (principal); E11.42 Type 2 diabetes mellitus with diabetic polyneuropathy; Z89.432 Acquired absence of left foot; L30.9 Dermatitis, unspecified; E11.621 Type 2 diabetes mellitus with foot ulcer; L97.422 Non-pressure chronic ulcer of left heel and midfoot with fat layer exposed | CPT/HCPCS: 11042; 99213 ==

== ENCOUNTER → 2024-05-22 10:31 | Outpatient (BNVA) | payer MEDICARE, MEDICAID, SELFPAY | PROVIDERS: PCP Internal Medicine; Visit Provider Podiatrist Foot & Ankle Surgery | DX: Z89.431 Acquired absence of right foot (principal); E11.42 Type 2 diabetes mellitus with diabetic polyneuropathy; Z89.432 Acquired absence of left foot; L30.9 Dermatitis, unspecified; E11.621 Type 2 diabetes mellitus with foot ulcer; L97.522 Non-pressure chronic ulcer of other part of left foot with fat layer exposed | CPT/HCPCS: 11042 ==

== ENCOUNTER → 2024-06-19 13:43 | Outpatient (BNVA) | payer MEDICARE, MEDICAID, SELFPAY | PROVIDERS: PCP Internal Medicine; Visit Provider Podiatrist Foot & Ankle Surgery | DX: Z89.431 Acquired absence of right foot (principal); E11.42 Type 2 diabetes mellitus with diabetic polyneuropathy; Z89.432 Acquired absence of left foot; E11.621 Type 2 diabetes mellitus with foot ulcer; L97.422 Non-pressure chronic ulcer of left heel and midfoot with fat layer exposed | CPT/HCPCS: 11042 ==

== ENCOUNTER 2024-07-03 11:51 | Outpatient (CLI) | payer MEDICARE, MEDICAID, SELFPAY | END 2024-07-03 11:52 | disposition home or self-care (01) | LOC: SPT 11:52 | PROVIDERS: PCP Internal Medicine; Visit Provider Podiatrist Foot & Ankle Surgery | DX: Z46.89 Encounter for fitting and adjustment of other specified devices (principal); S91.302D Unspecified open wound, left foot, subsequent encounter; X58.XXXD Exposure to other specified factors, subsequent encounter | CPT/HCPCS: 97760; L4361 ==

== ENCOUNTER → 2024-07-09 08:51 | Outpatient (BNVA) | payer MEDICARE, MEDICAID, SELFPAY | PROVIDERS: PCP Internal Medicine; Visit Provider Podiatrist Foot & Ankle Surgery | DX: Z89.431 Acquired absence of right foot (principal); E11.42 Type 2 diabetes mellitus with diabetic polyneuropathy; Z89.432 Acquired absence of left foot; L97.522 Non-pressure chronic ulcer of other part of left foot with fat layer exposed; E11.621 Type 2 diabetes mellitus with foot ulcer | CPT/HCPCS: 29445 ==

== ENCOUNTER → 2024-07-12 11:43 | Outpatient (BNVA) | payer MEDICARE, MEDICAID, SELFPAY | PROVIDERS: PCP Internal Medicine; Visit Provider Podiatrist Foot & Ankle Surgery | DX: Z89.431 Acquired absence of right foot (principal); E11.42 Type 2 diabetes mellitus with diabetic polyneuropathy; Z89.432 Acquired absence of left foot; L97.522 Non-pressure chronic ulcer of other part of left foot with fat layer exposed; K21.9 Gastro-esophageal reflux disease without esophagitis; R21 Rash and other nonspecific skin eruption; E11.621 Type 2 diabetes mellitus with foot ulcer | CPT/HCPCS: 29445; 99213 ==

== ENCOUNTER → 2024-07-16 08:03 | Outpatient (BNVA) | payer MEDICARE, MEDICAID, SELFPAY | PROVIDERS: PCP Internal Medicine; Visit Provider Podiatrist Foot & Ankle Surgery | DX: Z89.431 Acquired absence of right foot (principal); E11.42 Type 2 diabetes mellitus with diabetic polyneuropathy; Z89.432 Acquired absence of left foot; L97.522 Non-pressure chronic ulcer of other part of left foot with fat layer exposed; K21.9 Gastro-esophageal reflux disease without esophagitis; R21 Rash and other nonspecific skin eruption; E11.621 Type 2 diabetes mellitus with foot ulcer | CPT/HCPCS: 29445 ==

== ENCOUNTER → 2024-07-22 08:48 | Outpatient (BNVA) | payer MEDICARE, MEDICAID, SELFPAY | PROVIDERS: PCP Internal Medicine; Visit Provider Podiatrist Foot & Ankle Surgery | DX: Z89.431 Acquired absence of right foot (principal); E11.42 Type 2 diabetes mellitus with diabetic polyneuropathy; Z89.432 Acquired absence of left foot; L97.522 Non-pressure chronic ulcer of other part of left foot with fat layer exposed; K21.9 Gastro-esophageal reflux disease without esophagitis; R21 Rash and other nonspecific skin eruption; E11.621 Type 2 diabetes mellitus with foot ulcer | CPT/HCPCS: 99213 ==

== ENCOUNTER → 2024-07-29 09:54 | Outpatient (BNVA) | payer MEDICARE, MEDICAID, SELFPAY | PROVIDERS: PCP Internal Medicine; Visit Provider Podiatrist Foot & Ankle Surgery | DX: Z89.431 Acquired absence of right foot (principal); E11.42 Type 2 diabetes mellitus with diabetic polyneuropathy; L97.522 Non-pressure chronic ulcer of other part of left foot with fat layer exposed; Z89.432 Acquired absence of left foot | CPT/HCPCS: 99213 ==

== ENCOUNTER → 2024-08-05 14:53 | Outpatient (BNVA) | payer MEDICARE, MEDICAID, SELFPAY | PROVIDERS: PCP Internal Medicine; Visit Provider Podiatrist Foot & Ankle Surgery | DX: Z89.431 Acquired absence of right foot (principal); E11.42 Type 2 diabetes mellitus with diabetic polyneuropathy; L97.522 Non-pressure chronic ulcer of other part of left foot with fat layer exposed; Z89.432 Acquired absence of left foot; E11.621 Type 2 diabetes mellitus with foot ulcer | CPT/HCPCS: 99213 ==

== ENCOUNTER → 2024-08-12 10:08 | Outpatient (BNVA) | payer MEDICARE, MEDICAID, SELFPAY | PROVIDERS: PCP Internal Medicine; Visit Provider Podiatrist Foot & Ankle Surgery | DX: Z89.431 Acquired absence of right foot (principal); E11.42 Type 2 diabetes mellitus with diabetic polyneuropathy; L97.522 Non-pressure chronic ulcer of other part of left foot with fat layer exposed; Z89.432 Acquired absence of left foot; E11.621 Type 2 diabetes mellitus with foot ulcer | CPT/HCPCS: 11042 ==

== ENCOUNTER → 2024-08-19 10:01 | Outpatient (BNVA) | payer MEDICARE, MEDICAID, SELFPAY | PROVIDERS: PCP Internal Medicine; Visit Provider Podiatrist Foot & Ankle Surgery | DX: Z89.431 Acquired absence of right foot (principal); E11.42 Type 2 diabetes mellitus with diabetic polyneuropathy; L97.522 Non-pressure chronic ulcer of other part of left foot with fat layer exposed; Z89.432 Acquired absence of left foot; E11.621 Type 2 diabetes mellitus with foot ulcer | CPT/HCPCS: 99213 ==

== ENCOUNTER → 2024-08-26 10:28 | Outpatient (BNVA) | payer MEDICARE, MEDICAID, SELFPAY | PROVIDERS: PCP Internal Medicine; Visit Provider Podiatrist Foot & Ankle Surgery | DX: Z89.431 Acquired absence of right foot (principal); E11.42 Type 2 diabetes mellitus with diabetic polyneuropathy; L97.522 Non-pressure chronic ulcer of other part of left foot with fat layer exposed; Z89.432 Acquired absence of left foot; E11.621 Type 2 diabetes mellitus with foot ulcer | CPT/HCPCS: 99213 ==

== ENCOUNTER → 2024-09-02 15:39 | Outpatient (BNVA) | payer MEDICARE, MEDICAID, SELFPAY | PROVIDERS: PCP Internal Medicine; Visit Provider Podiatrist Foot & Ankle Surgery | DX: E11.621 Type 2 diabetes mellitus with foot ulcer (principal); L97.522 Non-pressure chronic ulcer of other part of left foot with fat layer exposed; E11.42 Type 2 diabetes mellitus with diabetic polyneuropathy; Z89.431 Acquired absence of right foot; Z89.432 Acquired absence of left foot | CPT/HCPCS: 73630; 99213 ==

== ENCOUNTER → 2024-09-09 15:03 | Outpatient (BNVA) | payer MEDICARE, MEDICAID, SELFPAY | PROVIDERS: PCP Internal Medicine; Visit Provider Podiatrist Foot & Ankle Surgery | DX: Z89.431 Acquired absence of right foot (principal); E11.42 Type 2 diabetes mellitus with diabetic polyneuropathy; L97.522 Non-pressure chronic ulcer of other part of left foot with fat layer exposed; Z89.432 Acquired absence of left foot; E11.621 Type 2 diabetes mellitus with foot ulcer | CPT/HCPCS: 11042 ==

== ENCOUNTER → 2024-09-18 12:43 | Outpatient (BNVA) | payer MEDICARE, MEDICAID, SELFPAY | PROVIDERS: PCP Internal Medicine; Visit Provider Podiatrist Foot & Ankle Surgery | DX: Z89.431 Acquired absence of right foot (principal); E11.42 Type 2 diabetes mellitus with diabetic polyneuropathy; L97.522 Non-pressure chronic ulcer of other part of left foot with fat layer exposed; Z89.432 Acquired absence of left foot; E11.621 Type 2 diabetes mellitus with foot ulcer | CPT/HCPCS: 99213 ==

== ENCOUNTER → 2024-09-26 08:44 | Outpatient (BNVA) | payer MEDICARE, MEDICAID, SELFPAY | PROVIDERS: PCP Internal Medicine; Visit Provider Thoracic Surgery (Cardiothoracic Vascular Surgery) | DX: E11.52 Type 2 diabetes mellitus with diabetic peripheral angiopathy with gangrene (principal); E11.621 Type 2 diabetes mellitus with foot ulcer; L97.422 Non-pressure chronic ulcer of left heel and midfoot with fat layer exposed | CPT/HCPCS: 11042; 99203; A6210 ==

== ENCOUNTER → 2024-10-03 07:51 | Outpatient (BNVA) | payer MEDICARE, MEDICAID, SELFPAY | PROVIDERS: PCP Internal Medicine; Visit Provider Thoracic Surgery (Cardiothoracic Vascular Surgery) | DX: E11.52 Type 2 diabetes mellitus with diabetic peripheral angiopathy with gangrene (principal); E11.621 Type 2 diabetes mellitus with foot ulcer; L97.422 Non-pressure chronic ulcer of left heel and midfoot with fat layer exposed | CPT/HCPCS: 11042; A6210 ==

== ENCOUNTER → 2024-10-10 09:45 | Outpatient (BNVA) | payer MEDICARE, MEDICAID, SELFPAY | PROVIDERS: PCP Internal Medicine; Visit Provider Thoracic Surgery (Cardiothoracic Vascular Surgery) | DX: E11.52 Type 2 diabetes mellitus with diabetic peripheral angiopathy with gangrene (principal); E11.621 Type 2 diabetes mellitus with foot ulcer; L97.422 Non-pressure chronic ulcer of left heel and midfoot with fat layer exposed | CPT/HCPCS: 11042 ==

== ENCOUNTER → 2024-10-16 15:27 | Outpatient (BNVA) | payer MEDICARE, MEDICAID, SELFPAY | PROVIDERS: PCP Internal Medicine; Visit Provider Thoracic Surgery (Cardiothoracic Vascular Surgery) | DX: E11.52 Type 2 diabetes mellitus with diabetic peripheral angiopathy with gangrene (principal); E11.621 Type 2 diabetes mellitus with foot ulcer; L97.422 Non-pressure chronic ulcer of left heel and midfoot with fat layer exposed | CPT/HCPCS: 11042; A6210 ==

== ENCOUNTER → 2024-10-18 08:54 | Outpatient (BNVA) | payer MEDICARE, MEDICAID, SELFPAY | PROVIDERS: PCP Internal Medicine; Visit Provider Thoracic Surgery (Cardiothoracic Vascular Surgery) | DX: E11.52 Type 2 diabetes mellitus with diabetic peripheral angiopathy with gangrene (principal); E11.621 Type 2 diabetes mellitus with foot ulcer; L97.422 Non-pressure chronic ulcer of left heel and midfoot with fat layer exposed | CPT/HCPCS: 29445; A6210; A6252 ==

== ENCOUNTER → 2024-10-22 08:49 | Outpatient (BNVA) | payer MEDICARE, MEDICAID, SELFPAY | PROVIDERS: PCP Internal Medicine; Visit Provider Thoracic Surgery (Cardiothoracic Vascular Surgery) | DX: E11.52 Type 2 diabetes mellitus with diabetic peripheral angiopathy with gangrene (principal); E11.621 Type 2 diabetes mellitus with foot ulcer; L97.421 Non-pressure chronic ulcer of left heel and midfoot limited to breakdown of skin | CPT/HCPCS: 97597; A6197; A6251 ==

== ENCOUNTER → 2024-10-25 10:35 | Outpatient (BNVA) | payer MEDICARE, MEDICAID, SELFPAY | PROVIDERS: PCP Internal Medicine; Visit Provider Thoracic Surgery (Cardiothoracic Vascular Surgery) | DX: E11.52 Type 2 diabetes mellitus with diabetic peripheral angiopathy with gangrene (principal); E11.621 Type 2 diabetes mellitus with foot ulcer; L97.421 Non-pressure chronic ulcer of left heel and midfoot limited to breakdown of skin | CPT/HCPCS: 97597; A6197; A6210; A6251 ==

== ENCOUNTER → 2024-10-29 10:30 | Outpatient (BNVA) | payer MEDICARE, MEDICAID, SELFPAY | PROVIDERS: PCP Internal Medicine; Visit Provider Thoracic Surgery (Cardiothoracic Vascular Surgery) | DX: E11.52 Type 2 diabetes mellitus with diabetic peripheral angiopathy with gangrene (principal); E11.621 Type 2 diabetes mellitus with foot ulcer; L97.421 Non-pressure chronic ulcer of left heel and midfoot limited to breakdown of skin | CPT/HCPCS: 97597; A6197; A6212; A6251 ==

== ENCOUNTER → 2024-11-01 10:35 | Outpatient (BNVA) | payer MEDICARE, MEDICAID, SELFPAY | PROVIDERS: PCP Internal Medicine; Visit Provider Thoracic Surgery (Cardiothoracic Vascular Surgery) | DX: E11.52 Type 2 diabetes mellitus with diabetic peripheral angiopathy with gangrene (principal); E11.621 Type 2 diabetes mellitus with foot ulcer; L97.422 Non-pressure chronic ulcer of left heel and midfoot with fat layer exposed | CPT/HCPCS: 29445; A6197; A6210; A6251 ==

== ENCOUNTER → 2024-11-05 08:27 | Outpatient (BNVA) | payer MEDICARE, MEDICAID, SELFPAY | PROVIDERS: PCP Internal Medicine; Visit Provider Thoracic Surgery (Cardiothoracic Vascular Surgery) | DX: E11.52 Type 2 diabetes mellitus with diabetic peripheral angiopathy with gangrene (principal); E11.621 Type 2 diabetes mellitus with foot ulcer; L97.421 Non-pressure chronic ulcer of left heel and midfoot limited to breakdown of skin | CPT/HCPCS: 97597; A6197; A6212; A6251 ==

== ENCOUNTER → 2024-11-08 09:06 | Outpatient (BNVA) | payer MEDICARE, MEDICAID, SELFPAY | PROVIDERS: PCP Internal Medicine; Visit Provider Thoracic Surgery (Cardiothoracic Vascular Surgery) | DX: E11.52 Type 2 diabetes mellitus with diabetic peripheral angiopathy with gangrene (principal); E11.621 Type 2 diabetes mellitus with foot ulcer; L97.421 Non-pressure chronic ulcer of left heel and midfoot limited to breakdown of skin | CPT/HCPCS: 29445; A6197; A6210 ==

== ENCOUNTER → 2024-11-12 08:24 | Outpatient (BNVA) | payer MEDICARE, MEDICAID, SELFPAY | PROVIDERS: PCP Internal Medicine; Visit Provider Thoracic Surgery (Cardiothoracic Vascular Surgery) | DX: E11.52 Type 2 diabetes mellitus with diabetic peripheral angiopathy with gangrene (principal); E11.621 Type 2 diabetes mellitus with foot ulcer; L97.421 Non-pressure chronic ulcer of left heel and midfoot limited to breakdown of skin | CPT/HCPCS: 97597; A6197; A6210; A6251 ==

== ENCOUNTER → 2024-11-14 13:53 | Outpatient (BNVA) | payer MEDICARE, MEDICAID, SELFPAY | PROVIDERS: PCP Internal Medicine; Visit Provider Thoracic Surgery (Cardiothoracic Vascular Surgery) | DX: E11.52 Type 2 diabetes mellitus with diabetic peripheral angiopathy with gangrene (principal); E11.621 Type 2 diabetes mellitus with foot ulcer; L97.421 Non-pressure chronic ulcer of left heel and midfoot limited to breakdown of skin | CPT/HCPCS: 99212; A6197; A6252 ==

== ENCOUNTER → 2024-11-19 09:33 | Outpatient (BNVA) | payer MEDICARE, MEDICAID, SELFPAY | PROVIDERS: PCP Internal Medicine; Visit Provider Thoracic Surgery (Cardiothoracic Vascular Surgery) | DX: E11.52 Type 2 diabetes mellitus with diabetic peripheral angiopathy with gangrene (principal); E11.621 Type 2 diabetes mellitus with foot ulcer; L97.422 Non-pressure chronic ulcer of left heel and midfoot with fat layer exposed | CPT/HCPCS: 11042; A6197; A6251 ==

== ENCOUNTER → 2024-11-26 13:16 | Outpatient (BNVA) | payer MEDICARE, MEDICAID, SELFPAY | PROVIDERS: PCP Internal Medicine; Visit Provider Thoracic Surgery (Cardiothoracic Vascular Surgery) | DX: E11.52 Type 2 diabetes mellitus with diabetic peripheral angiopathy with gangrene (principal); E11.621 Type 2 diabetes mellitus with foot ulcer; L97.421 Non-pressure chronic ulcer of left heel and midfoot limited to breakdown of skin | CPT/HCPCS: 97597; A6197; A6237; A6250; A6252 ==

== ENCOUNTER → 2024-12-02 14:50 | Outpatient (BNVA) | payer MEDICARE, MEDICAID, SELFPAY | PROVIDERS: PCP Internal Medicine; Visit Provider Thoracic Surgery (Cardiothoracic Vascular Surgery) | DX: E11.52 Type 2 diabetes mellitus with diabetic peripheral angiopathy with gangrene (principal); E11.621 Type 2 diabetes mellitus with foot ulcer; L97.422 Non-pressure chronic ulcer of left heel and midfoot with fat layer exposed | CPT/HCPCS: 11042; A6197; A6220; A6251 ==

== ENCOUNTER → 2024-12-09 14:46 | Outpatient (BNVA) | payer MEDICARE, MEDICAID, SELFPAY | PROVIDERS: PCP Internal Medicine; Visit Provider Thoracic Surgery (Cardiothoracic Vascular Surgery) | DX: E11.52 Type 2 diabetes mellitus with diabetic peripheral angiopathy with gangrene (principal); E11.621 Type 2 diabetes mellitus with foot ulcer; L97.422 Non-pressure chronic ulcer of left heel and midfoot with fat layer exposed | CPT/HCPCS: 11042; A6197; A6220; A6251 ==

== ENCOUNTER → 2024-12-12 09:37 | Outpatient (BNVA) | payer MEDICARE, MEDICAID, SELFPAY | PROVIDERS: PCP Internal Medicine; Visit Provider Nurse Practitioner Family | DX: L81.4 Other melanin hyperpigmentation (principal); L57.8 Other skin changes due to chronic exposure to nonionizing radiation; D22.39 Melanocytic nevi of other parts of face; L30.9 Dermatitis, unspecified | CPT/HCPCS: 11104; 11105; 99203 ==

== ENCOUNTER 2024-12-16 12:11 | Outpatient (CLI) | payer MEDICARE, MEDICAID, SELFPAY ==
--- NOTE | 2024-12-16 12:19 | XRR_ITS ---
PROCEDURE INFORMATION: Exam: XR Left Foot Exam date and time: 12/16/2024 12:26 PM Age: 69 years old Clinical indication: Condition or disease; Other: Type 2 diabetes mellitus with foot ulcer; Prior surgery; Surgery date: 6+ months; Surgery type: Lt foot partial amputation; Additional info: E11.621 - type 2 diabetes mellitus with foot ulcer TECHNIQUE: Imaging protocol: Radiologic exam of the left foot. Views: 3 or more views. COMPARISON: CR XR foot LT min 3V* [id number] 09/02/2024 3:52 PM FINDINGS: Bones/joints: No acute fracture or malalignment. Postsurgical changes related to amputation/disarticulation of the base of the forefoot (1st-5th rays). No distinct cortical erosion or periosteal reaction. Mild disuse osteopenia in the hindfoot. Soft tissues: Adequate soft tissue coverage overlying the amputation. Mild soft tissue swelling of the anterior lower leg and foot. Correlate for cellulitis. XR/XR foot LT min 3V* [id number] IMPRESSION: 1. No acute fracture or malalignment. Postsurgical changes related to amputation/disarticulation of the base of the forefoot (1st-5th rays). No distinct cortical erosion or periosteal reaction. 2. Adequate soft tissue coverage overlying the amputation. Mild soft tissue swelling of the anterior lower leg and foot. Correlate for cellulitis.
== END 2024-12-16 12:12 | disposition home or self-care (01) ==
LOC: RAD 12:14
PROVIDERS: PCP Internal Medicine; Visit Provider Thoracic Surgery (Cardiothoracic Vascular Surgery)
DX: E11.621 Type 2 diabetes mellitus with foot ulcer (principal); L97.529 Non-pressure chronic ulcer of other part of left foot with unspecified severity; Z98.890 Other specified postprocedural states; R93.6 Abnormal findings on diagnostic imaging of limbs; M85.872 Other specified disorders of bone density and structure, left ankle and foot; E11.52 Type 2 diabetes mellitus with diabetic peripheral angiopathy with gangrene; L97.422 Non-pressure chronic ulcer of left heel and midfoot with fat layer exposed
CPT/HCPCS: 11042; 73630; A6197; A6220

== ENCOUNTER 2024-12-23 06:00 | Outpatient (CLI) | payer MEDICARE, MEDICAID, SELFPAY | END 2024-12-23 06:01 | disposition home or self-care (01) | LOC: WOUND 12-25 16:39 | PROVIDERS: PCP Internal Medicine; Visit Provider Thoracic Surgery (Cardiothoracic Vascular Surgery) | DX: E11.52 Type 2 diabetes mellitus with diabetic peripheral angiopathy with gangrene (principal); E11.621 Type 2 diabetes mellitus with foot ulcer; L97.523 Non-pressure chronic ulcer of other part of left foot with necrosis of muscle; L97.422 Non-pressure chronic ulcer of left heel and midfoot with fat layer exposed | CPT/HCPCS: 11042; 11043; 87070; 87075; 87077; 87176; 87186; 87205; 99213 ==

== ENCOUNTER → 2024-12-31 08:54 | Outpatient (BNVA) | payer MEDICARE, MEDICAID, SELFPAY | PROVIDERS: PCP Internal Medicine; Visit Provider Thoracic Surgery (Cardiothoracic Vascular Surgery) | DX: E11.52 Type 2 diabetes mellitus with diabetic peripheral angiopathy with gangrene (principal); E11.621 Type 2 diabetes mellitus with foot ulcer; L97.524 Non-pressure chronic ulcer of other part of left foot with necrosis of bone; L97.522 Non-pressure chronic ulcer of other part of left foot with fat layer exposed | CPT/HCPCS: 11042; 11044; 87070; 87176; 87205 ==

== ENCOUNTER 2025-01-03 13:53 | Outpatient (CLI) | payer MEDICARE, MEDICAID, SELFPAY ==
--- NOTE | 2025-01-03 14:15 | USR_ITS ---
PROCEDURE INFORMATION: Exam: US Duplex Left Lower Extremity Arteries Or Arterial Bypass Grafts Exam date and time: 01/03/2025 2:25 PM Age: 69 years old Clinical indication: Injury or trauma; Other: Unknown; Wound, open; Left; Ankle and foot level; Vessel not specified; Prior surgery; Surgery date: 6+ months; Surgery type: Had bilateral feet removed; Additional info: E11.621 - type 2 diabetes mellitus with foot ulcer, w/ stoney TECHNIQUE: Imaging protocol: Left Real-time duplex scan of the arteries or arterial bypass grafts of the left lower extremity with 2-D gill scale, color Doppler flow and spectral waveform analysis. Images documented and saved. COMPARISON: CR XR foot LT min 3V* [id number] 16/12/2024 12:26 previous study demonstrated normal waveforms. FINDINGS: Left common femoral artery: No occlusion or significant stenosis. Normal waveform. Left superficial femoral artery: No occlusion or significant stenosis. Normal waveform. Left popliteal artery: No occlusion or significant stenosis. Normal waveform. Left calf/foot arteries: Monophasic flow reported in the dorsalis pedis and posterior tibial arteries. The previously study demonstrating normal waveforms in the calf/foot arteries. Other findings: Reported diabetic pedal ulceration. The posterior tibial artery was not visualized with color flow. US/[place] [id number] IMPRESSION: Significant atherosclerotic arterial disease suspected to involve the calf vessels.
== END 2025-01-03 13:54 | disposition home or self-care (01) ==
LOC: RAD 13:55
PROVIDERS: PCP Internal Medicine; Visit Provider Thoracic Surgery (Cardiothoracic Vascular Surgery)
DX: E11.621 Type 2 diabetes mellitus with foot ulcer (principal); L97.529 Non-pressure chronic ulcer of other part of left foot with unspecified severity; I70.208 Unspecified atherosclerosis of native arteries of extremities, other extremity
CPT/HCPCS: 93926

== ENCOUNTER → 2025-01-07 08:48 | Outpatient (BNVA) | payer MEDICARE, MEDICAID, SELFPAY | PROVIDERS: PCP Internal Medicine; Visit Provider Podiatrist Foot & Ankle Surgery | DX: E11.621 Type 2 diabetes mellitus with foot ulcer (principal); L97.524 Non-pressure chronic ulcer of other part of left foot with necrosis of bone; Z89.431 Acquired absence of right foot; E11.42 Type 2 diabetes mellitus with diabetic polyneuropathy | CPT/HCPCS: 99214 ==

== ENCOUNTER → 2025-01-10 09:15 | Outpatient (BNVA) | payer MEDICARE, MEDICAID, SELFPAY | PROVIDERS: PCP Internal Medicine; Referring Provider Podiatrist Foot & Ankle Surgery; Visit Provider Orthopaedic Surgery | DX: E11.69 Type 2 diabetes mellitus with other specified complication (principal); M86.172 Other acute osteomyelitis, left ankle and foot | CPT/HCPCS: 99214 ==

== ENCOUNTER 2025-01-23 08:23 | Inpatient (IN) | payer MEDICARE, MEDICAID, SELFPAY ==
[2025-01-23] VITALS (7 sets, daily range): BP systolic 99–129; BP diastolic 53–70; PULSE 73–99; RESP 16–20; TEMP 36.6–37.2; O2SAT 93–100; BMI 22.9; BMI 21.2
--- NOTE | 2025-01-23 08:31 | XR_ITS ---
WS: [id number] Exam: XR foot LT min 3V* [id number] Date/Time of Exam: 01/23/2025 8:31 AM Reason For Exam: Chronic foot ulcer Comparison 12/16/2024. There is been amputation of the LEFT foot at the level of the distal margin of the cuneiforms. There is osseous destruction of the anterior aspect of the cuboid suspicious for acute osteomyelitis. No other sign of bone destruction noted. There is gas in the soft tissues which may be secondary to gas-forming bacterial infection. There is ulceration along the lateral aspect of the foot. XR/XR foot LT min 3V* [id number] IMPRESSION: 1. Osseous destruction of the anterior aspect of the cuboid suspicious for acut e osteomyelitis. No other sign of bone destruction or fracture. 2. Soft tissue edema with ulceration and gas in the soft tissues as discussed alvarez hernandez.
--- NOTE | 2025-01-23 08:38 | ED_ITS ---
HPI - Extremity Problem 2 General: Chief complaint: Extremity Problem,Nontraumatic Stated complaint: foot wound sent from clinic Time Seen by Provider: 01/23/25 08:31 History of Present Illness: 69-year-old male presents emergency room complaining of a nonhealing wound in his left foot. He previously had a partial amputation of the foot and has a chronic nonhealing wound. He has not been feeling well reports subjective fever at home drainage foul-smelling. He has not been being seen at wound care regularly. Reviewing the chart he did previously have arterial Dopplers that showed poor blood flow in the lower leg. He was to the podiatry clinic today that note was reviewed podiatry recommended below the knee amputation patient is agreeable to proceeding with this Associated symptoms: Reports fever(s); Deny chest pain or rash Related Data Home Medications ?Medication ?Instructions ?Recorded ?Confirmed cephalexin 500 mg capsule 500 mg PO QID 01/23/2501/23 glipizide 10 mg tablet 10 mg PO BID 01/23/25 insulin glargine 100 unit/mL (3 20 unit SUBCUT DAILY 0 01/23/25 01/23/25 mL) subcutaneous pen (Lantus Solostar U-100 Insulin) Allergies Allergy/AdvReac Type Severity Reaction Status Date / Time clindamycin Allergy Unknown Verified 01/23/25 08:10 soy Allergy Unknown Verified 01/23/25 08:10 laundry detergent Allergy Mild rash Uncoded 01/23/25 08:10 Review of Systems 2 Const: Reports: fever(s), chills, body aches, change in appetite and malaise Card: Denies: chest pain Resp: Denies: dyspnea GI: Denies: abdominal pain : Denies: dysuria, urinary frequency or urinary urgency Musc: Denies: neck pain or back pain Skin/Breast: Denies: rash PFSH ED 2 PFSH: Medical History Partial nontraumatic amputation of foot R trans metatarsal amputation Diabetes Social History Smoking and tobacco/nicotine status: former use of tobacco/nicotine Alcohol intake: never Substance/Drug Use: current Physical Exam 2 Const: COMMON NORMALS: no acute distress GENERAL APPEARANCE: cooperative and comfortable ORIENTATION/CONSCIOUSNESS: Yes awake, Yes oriented to person, Yes oriented to place and Yes oriented to time HENMT: COMMON NORMALS: normocephalic, atraumatic and hearing grossly normal bilaterally HEAD & SCALP: normocephalic and atraumatic Resp: COMMON NORMALS: normal respiratory effort, No retractions, No use of accessory muscles and clear to auscultation bilaterally AUSCULTATION: clear to auscultation bilaterally Cardio: COMMON NORMALS: regular rate, regular rhythm and No murmurs present (Cardio) RATE: regular rate RHYTHM: regular rhythm GI: COMMON NORMALS: Soft to palpation and No hepatosplenomegaly present A USCULTATION: Yes normoactive bowel sounds PALPATION: Yes Soft to palpation, No Tenderness to palpation present (GI), No Guarding due to palpation present (GI) and Yes No hepatosplenomegaly present Neuro: SENSORIUM/ORIENTATION: Yes oriented to person, Yes oriented to place and Yes oriented to time Skin: COMMON NORMALS: no rashes or lesions noted GENERAL SKIN EXAM: no rashes or lesions noted Course 2 Vital Signs: Vital signs: Vital Signs Temperature 98.3 F 01/24/25 11:05 Pulse Rate 69 01/24/25 11:05 Respiratory Rate 18 01/24/25 11:05 Blood Pressure 116/61 01/24/25 11:05 Pulse Oximetry 100 01/24/25 11:05 Oxygen Delivery Me thod Room Air 01/24/25 11:05 Oxygen Flow Rate 2 01/23/25 19:57 MDM - Extremity (Nontraumatic) Medical Decision Making Plain films show osteomyelitis with evidence of gas formation and there is soft tissue. No proximal spread. Patient previously had evaluation for below-knee amputation he has poor distal arterial flow. The infection has been smoldering and ongoing for some time and is not worsening. Will admit to start patient on Vanco and Zosyn discussed with hospitalist also discussed with Dr. Farah from Ortho he will consult. Cultures done orders written for admission. Medical Records I reviewed the patient's medical records. Lab Data I reviewed the patient's lab results. 01/24/25 05:50 01/24/25 05:50 Radiology Impressions Foot X-Ray 01/23/25 08:31 IMPRESSION: 1. Osseous destruction of the anterior aspect of the cuboid suspicious for acute osteomyelitis. No other sign of bone destruction or fracture. 2. Soft tissue edema with ulceration and gas in the soft tissues as discussed above. Tibia/Fibula X-Ray 01/23/25 15:27 IMPRESSION: 1. Soft tissue air with soft tissue gas involving the foot suspicious for infection with gas-forming organism. Laboratory Results WBC 9.29 10^3/uL (3.29-11.43) 01/23/25 09:09 RBC 4.39 10^6/uL (3.85-5.65) 01/23/25 09:09 Hgb 11.20 g/dL (11.27-16.99) L 01/23/25 09:09 Hct 35.1 % (37-53) L 01/23/25 09:09 MCV 80.0 fl (82-101) L 01/23/25 09:09 MCH 25.5 pg (27-33) L 01/23/25 09:09 MCHC 31.9 g/dL (30-55) 01/23/25 09:09 RDW 14.9 % (12.1-15.1) 01/23/25 09:09 Plt Count 297 10^3/cmm (157-399) 01/23/25 09:09 MPV 9.5 fL (7.4-10.4) 01/23/25 09:09 Neut % (Auto) 83.6 % 01/23/25 09:09 Lymph % (Auto) 7.4 % 01/23/25 09:09 [place] % (Auto) 7.4 % 01/23/25 09:09 Eos % (Auto) 0.2 % 01/23/25 09:09 Baso % (Auto) 0.3 % 01/23/25 09:09 Neut # (Auto) 7.76 10^3/uL (1.8-7.7) H 01/23/25 09:09 Lymph # (Auto) 0.7 10^3/uL (0.8-4.8) L 01/23/25 09:09 [place] # (Auto) 0.7 10^3/uL (0.2-0.9) 01/23/25 09:09 Eos # (Auto) 0.0 10^3/uL (0.0-0.8) 01/23/25 09:09 Baso # (Auto) 0.0 10^3/uL (0.0-0.1) 01/23/25 09:09 Nucleated RBC % (auto) 0 % 01/23/25 09:09 Nucleated RBCs # 0.0 /100WBC 01/23/25 09:09 Sodium 128 mmol/L (136-145) L 01/23/25 09:09 Potassium 4.6 mmol/L (3.5-5.1) 01/23/25 09:09 Chloride 93 mmol/L (98-107) L 01/23/25 09:09 Carbon Dioxide 21 mmol/L (22-29) L 01/23/25 09:09 Anion Gap 18.6 (5-19) 01/23/25 09:09 BUN 15 mg/dL (8-23) 01/23/25 09:09 Creatinine 0.7 mg/dL (0.7-1.2) 01/23/25 09:09 GFR Calculation 111.5 mL/min (90-130) 01/23/25 09:09 Glucose 204 mg/dL (65-115) H 01/23/25 09:09 Estimat Average Glucose 318 01/23/25 09:09 Hemoglobin A1c 12.7 % (4.0-6.0) H 01/23/25 09:09 Calculated Osmolality 273 mOsm/kg (285-295) L 01/23/25 09:09 Lactic Acid 1.8 mmol/L (0.5-2.2) 01/23/25 09:09 Calcium 8.6 mg/dL (8.5-10.5) 01/23/25 09:09 Total Bilirubin 0.9 mg/dL (0.15-1.2) 01/23/25 09:09 AST 15 U/L (0-40) 01/23/25 09:09 ALT 11 U/L (0-41) 01/23/25 09:09 Alkaline Phosphatase 149 U/L (40-130) H 01/23/25 09:09 Total Protein 7.3 g/dL (6.6-8.7) 01/23/25 09:09 Albumin 3.0 g/dL (3.5-5.2) L 01/23/25 09:09 Globulin 4.3 g/dL (1.3-4.6) 01/23/25 09:09 Triglycerides 134 mg/dL (0-150) 01/23/25 09:09 Cholesterol 98 mg/dL (0-200) 01/23/25 09:09 LDL Cholesterol, Calc 51 mg/dL (50-129) 01/23/25 09:09 HDL Cholesterol 20 mg/dL (60-100) L 01/23/25 09:09 LDL/HDL Ratio 2.55 RATIO (0.00-3.22) 01/23/25 09:09 Cholesterol/HDL Ratio 4.90 mg/dL (1.0-5.00) 01/23/25 09:09 TSH 5.97 uIU/mL (0.27-4.20) H 01/23/25 09:09 All radiology interpretation(s) finalized by discharge Discharge Plan Discharge Patient Disposition: Admitted As Inpatient Admit Provider: Louie Jolly Clinical Impression: Non-pressure chronic ulcer of left heel and midfoot limited to breakdown of skin, Dehiscence of amputation stump of left lower extremity, Diabetes, Osteomyelitis due to type 2 diabetes mellitus, Status post transmetatarsal amputation of right foot Condition: Stable Coding Level of Care Code ED Student Development Coordinator for Deanna Wilson
[2025-01-23 09:14] LABS: Basophils % 0.3 %; Eosinophils % 0.2 %; Hematocrit 35.1 % (37-53); Lymphocytes # 0.7 10^3/uL (0.8-4.8); Lymphocytes % 7.4 %; Mean Corpuscular HGB Conc 31.9 g/dL (30-55); Mean Corpuscular Hemoglobin 25.5 pg (27-33); Mean Platelet Volume 9.5 fL (7.4-10.4); Monocytes # 0.7 10^3/uL (0.2-0.9); Monocytes % 7.4 %; Neutrophils # 7.76 10^3/uL (1.8-7.7); Neutrophils % 83.6 %; Nucleated Red Blood Cells % 0 %; Platelet Count 297 10^3/cmm (157-399); Red Blood Count 4.39 10^6/uL (3.85-5.65); Red Cell Distribution Width 14.9 % (12.1-15.1); White Blood Count 9.29 10^3/uL (3.29-11.43)
[2025-01-23 09:42] LABS: Alanine Aminotransferase 11 U/L (0-41); Alkaline Phosphatase 149 U/L (40-130); Anion Gap 18.6 (5-19); Aspartate Amino Transferase 15 U/L (0-40); Blood Urea Nitrogen 15 mg/dL (8-23); Calcium 8.6 mg/dL (8.5-10.5); Carbon Dioxide 21 mmol/L (22-29); Chloride 93 mmol/L (98-107); Creatinine Clr Calc Pharmacy 99.4063; Globulin 4.3 g/dL (1.3-4.6); Glomerular Filtration Rate 111.5 mL/min (90-130); Glucose 204 mg/dL (65-115); Osmolality Calculated 273 mOsm/kg (285-295); Potassium 4.6 mmol/L (3.5-5.1); Sodium 128 mmol/L (136-145); Total Bilirubin 0.9 mg/dL (0.15-1.2); Total Protein 7.3 g/dL (6.6-8.7)
[2025-01-23 11:28] LABS: Lactic Sepsis W/Reflex 1.8 mmol/L (0.5-2.2)
[2025-01-23] MEDS: piperacillin-tazobactam 3.375 GM in sodium chloride 0.9% (plus) 50 ML IV ×2 (12:30→20:04)
--- NOTE | 2025-01-23 13:11 | P.HP_ITS ---
Providers/Chief Complaint 2 Admitting Physician: Louie Jolly MD Primary Care Provider: Luis Burns MD Chief Complaint: foot wound sent from clinic History of Present Illness David Honeycutt is a 69 year old male who with a past medical history of type 2 diabetes mellitus, history of right lower extremity transmetatarsal amputation, left foot/metatarsal amputation, with diabetic foot ulcer at the remaining foot/stump, who presents to [facility] for increased drainage from diabetic foot ulcer, increased pain, with complaints of fevers, chills. Currently patient alert oriented x 3, following all commands, reports fevers, chills, no nausea, no vomiting or abdominal pain, reports increased drainage from the left foot, diabetic ulcer, he saw Dr. Fajardo, today in clinic who recommended patient come to the hospital for concerns for infection, and the need for below-knee amputation, podiatry has been consulted, he is currently n.p.o., he did not have breakfast this morning Review of Systems 2 Const: Reports: fever(s), chills, fatigue and malaise Card: Denies: chest pain Resp: Denies: dyspnea GI: Denies: abdominal pain Medications/Allergies Home Medications ?Medication ?Instructions ?Recorded ?Confirmed ?Last Taken ?Type cephalexin 500 mg capsule 500 mg PO QID 01/23/2501/2301/23/25 History glipizide 10 mg tablet 10 mg PO BID 01/23/25 Unknown History insulin glargine 100 unit/mL (3 20 unit SUBCUT DAILY 0 01/23/25 01/23/25 Unknown History mL) subcutaneous pen (Lantus Solostar U-100 Insulin) Allergies Allergy/AdvReac Type Severity Reaction Status Date / Time clindamycin Allergy Unknown Verified 01/23/25 08:10 soy Allergy Unknown Verified 01/23/25 08:10 laundry detergent Allergy Mild rash Uncoded 01/23/25 08:10 PFSH Acute 2 PFSH: Medical History Partial nontraumatic amputation of foot R trans metatarsal amputation Diabetes Social History Smoking and tobacco/nicotine status: former use of tobacco/nicotine Alcohol intake: never Substance/Drug Use: current Vitals/I&O/Wt Last Vital Signs Temp 98.9 F 01/23/25 08:29 Pulse 85 01/23/25 08:29 Resp 16 01/23/25 08:29 BP 116/62 01/23/25 08:29 Pulse Ox 100 01/23/25 08:29 O2 Del Method Room Air 01/23/25 08:29 01/22/25 01/23/25 01/23/25 22:59 06:59 14:59 Intake Total 50 / 50 Balance 50 / 50 Weight last 48 hrs Weight 81.193 kg Physical Exam 2 Const: COMMON NORMALS: no acute distress and patient oriented x3 HENMT: COMMON NORMALS: normocephalic HEAD & SCALP: normocephalic Neck/C-Spine: COMMON NORMALS: no JVD Resp: COMMON NORMALS: normal respiratory effort, No retractions, No use of accessory muscles and clear to auscultation bilaterally AUSCULTATION: clear to auscultation bilaterally Cardio: COMMON NORMALS: regular rate, regular rhythm, S1 normal heart sound present and S2 normal heart sound present RATE: regular rate RHYTHM: r egular rhythm HEART SOUNDS: S1 normal heart sound present and S2 normal heart sound present GI: COMMON NORMALS: Normal to inspection, nondistended, normoactive bowel sounds present, Soft to palpation and non-tender Extremity: COMMON NORMALS: no pedal edema NARRATIVE EXTREMITY EXAM: Right foot transmetatarsal amputation, remaining foot/stump, looks clean and dry, Left lower extremity transmetatarsal amputation, remaining foot/stump, plantar aspect has a large diabetic ulcer, measuring 5 x 5 cm, irregular borders, actively draining purulent material, foul-smelling Neuro: COMMON NORMALS: patient oriented x3 Psych: COMMON NORMALS: mental status grossly normal Data 01/23/25 09:09 01/23/25 09:09 Micro: Microbiology 01/23/25 08:50 Blood Culture - Preliminary Blood SPECIMEN COLLECTED 01/23/25 09:09 Blood Culture - Preliminary Blood SPECIMEN COLLECTED A&P Assessment and plan (1) Dehiscence of amputation stump of left lower extremity: (2) Diabetic peripheral neuropathy associated with type 2 diabetes mellitus: Plan Left foot stump diabetic foot infection, with sepsis - Requiring IV antibiotics - Requiring orthopedic evaluation, possible below-knee amputation Plan - Follow blood cultures - Continue vancomycin - Continue Zosyn - Moderate dose sliding scale - Currently n.p.o. - Plan for below-knee amputation - Orthopedic service consulted - Lovenox for DVT prophylaxis once surgery has been completed - CODE STATUS he is a DNR, but is okay with elective intubation if required PDMP PDMP Reviewed: Not Reviewed Attestations 2 Medical Necessity Statement*: Patient requires hospitalization, inpatient, greater than 2 midnights, for left foot stump diabetic foot infection, requiring below-knee amputation, IV antibiotics, sepsis Diagnoses Dehiscence of amputation stump of left lower extremity T87.81 Diabetic peripheral neuropathy associated with type 2 diabetes mellitus E11.42
[2025-01-23] MEDS: VANCOMYCIN ADD-Vantage 1,000 MG in 0.9% NaCl ADD-Vantage 250 ML 250 MG IV (13:16)
[2025-01-23 13:59] LABS: Estmated Average Glucose 318; Hemoglobin A1C 12.7 % (4.0-6.0)
--- NOTE | 2025-01-23 14:16 | P.CONIM_ITS ---
<Statement entered by Sunny Farah DO - 01/27/25 18:04> Orthopedic attending addendum: Patient was seen and evaluated this afternoon. Reviewed and agree with PAs assessment and plan. Patient has a previous transmetatarsal amputation. Patient has had chronic wounds and been dealing with this for years. He unfortunately was planning on a possible outpatient below the knee amputation given he had high A1c however he now subsequently presented to emergency department with worsening drainage and cellulitis. On my inspection he does have noticeable drainage and large plantar wound. He has cellulitis that goes right up to the bout the ankle but no cellulitis tracking proximally into the lower extremity. There is no evidence of subcutaneous emphysema or rapid progressing infection. Purulent drainage noted out of the wound bed. At this point in time he has been preparing for a left below the knee amputation. Secondary survey examination does demonstrate he has a healed right foot transmetatarsal amputation with no appreciable wounds. At this point in time patient has a chronic osteomyelitis and draining wound with now soft tissue infection with cellulitis as well as gas at the open site of the soft tissues which is consistent with his given open wound. We went ahead and x-rayed the tib-fib which no Airgas is appreciated in this site. We reviewed patient's labs. At this point in time he has been ongoing with this is no unfortunately a worsening situation and I feel as though his next best step would be for left below the knee amputation. He is thought about this and is ready to proceed. At this point in time we had a long thoughtful discussion about his treatment options as far as continue nonoperative versus operative invention. At this point in time recommendation would be for left below the knee amputation he has had previous studies from a vascular standpoint for the emergency department that he has potential of healing of below the knee amputation we talked about this in detail and through shared decision making patient elects proceed with a left below the knee amputation. At this point in time we will go ahead and plan to schedule patient for surgery tomorrow for left below the knee amputation once again we reviewed the ins and outs procedure the risk benefits complication alternatives surgery. Risk of surge include but not limited to make it better, make it worse, phantom pain, infection, wound complications, further surgery and possible [id number] amputation conversion. Understanding his risk of surgery patient elects proceed with surgical intervention. All questions have been answered at this time. He will continue with IV antibiotics at this point time be n.p.o. at midnight and plan for surgery tomorrow. All questions have been answered at this time. Sunny Farah DO Orthopedic surgery Providers/Reason For Consult 2 Consulting Physician/Specialty*: Dr. Farah/orthopedic surgeon Reason for Consult*: Left foot osteomyelitis and nonhealing wound Requesting Physician: Dr. Tillman/ED Attending Physician: Louie Jolly MD Primary Care Provider: Luis Burns MD History of Present Illness History of Present Illness David Honeycutt is a 69 year old male with a past medical history of type 2 diabetes mellitus, history of right lower extremity transmetatarsal amputation, left foot/metatarsal amputation, with diabetic foot ulcer at the remaining of left foot/stump, who presents to [facility] for increased drainage from diabetic foot ulcer, increased pain, with complaints of fevers, chills. Patient is not on any blood thinner. He uses a wheelchair and walker at times for ambulation. Review of Systems 2 General: Reports: 10 or more systems reviewed and unremarkable except in HPI and below Const: Reports: fever(s), chills, body aches and change in appetite Card: Denies: chest pain Resp: Denies: dyspnea GI: Denies: abdominal pain : Denies: dysuria Musc: Reports: other (Open wound on left heel) Medications/Allergies Home Medications ?Medication ?Instructions ?Recorded ?Confirmed ?Last Taken ?Type cephalexin 500 mg capsule 500 mg PO QID 01/23/2501/2301/23/25 History glipizide 10 mg tablet 10 mg PO BID 01/23/25 Unknown History insulin glargine 100 unit/mL (3 20 unit SUBCUT DAILY 0 01/23/25 01/23/25 Unknown History mL) subcutaneous pen (Lantus Solostar U-100 Insulin) Allergies Allergy/AdvReac Type Severity Reaction Status Date / Time clindamycin Allergy Unknown Verified 01/23/25 08:10 soy Allergy Unknown Verified 01/23/25 08:10 laundry detergent Allergy Mild rash Uncoded 01/23/25 08:10 PFSH Acute 2 PFSH: Medical History Partial nontraumatic amputation of foot R trans metatarsal amputation Diabetes Social History Smoking and tobacco/nicotine status: former use of tobacco/nicotine Alcohol intake: never Substance/Drug Use: current Vitals/I&O/Wt Last Vital Signs Temp 98.9 F 01/23/25 08:29 Pulse 74 01/23/25 14:04 Resp 16 01/23/25 08:29 BP 99/57 01/23/25 14:04 Pulse Ox 100 01/23/25 14:04 O2 Del Method Room Air 01/23/25 13:31 01/22/25 01/23/25 01/23/25 22:59 06:59 14:59 Intake Total 50 / 50 Balance 50 / 50 Weight last 48 hrs Weight 165 lb 8 oz Weight 179 lb Physical Exam 2 Const: COMMON NORMALS: no acute distress and alert Resp: COMMON NORMALS: normal respiratory effort and No retractions Cardio: COMMON NORMALS: Peripheral pulses 2+ throughout PERIPHERAL PULSES: Peripheral pulses 2+ throughout Extremity: NARRATIVE EXTREMITY EXAM: Upper extremities have no visible deformity or injuries. He has no palpable tenderness over shoulders and wrists. Radial pulse 2+. Full range of motion arms. Right foot transmetatarsal amputation, remaining foot/stump, looks clean and dry, Left lower extremity transmetatarsal amputation, remaining foot/stump, plantar aspect has a large diabetic ulcer, measuring 5 x 5 cm, irregular borders, actively draining purulent material, foul-smelling surrounding erythema but is localized to foot and does not extend up past the ankle. No red streaking seen. Neuro: SENSORIUM/ORIENTATION: Yes alert Skin: GENERAL SKIN EXAM: dry skin Data 01/23/25 09:09 01/23/25 09:09 Micro: Microbiology 01/23/25 08:50 Blood Culture - Preliminary Blood SPECIMEN COLLECTED 01/23/25 09:09 Blood Culture - Preliminary Blood SPECIMEN COLLECTED Xray Ortho: Radiologist's impression: Patient: David Honeycutt Unit #: [id number] : 1955 Age/Sex: 69 / M ADM Date: 01/23/25 Loc: ER Room/Bed: Attending Dr: Ordering Provider/Ordering MD: Umberto Tillman DO Date of Service: 01/23/25 Procedure(s): XR foot LT min 3V* [id number] Accession Number(s): [id number] Report Number: [id number] WS: [id number] Exam: XR foot LT min 3V* [id number] Date/Time of Exam: 01/23/2025 8:31 AM Reason For Exam: Chronic foot ulcer Comparison 12/16/2024. There is been amputation of the LEFT foot at the level of the distal margin of the cuneiforms. There is osseous destruction of the anterior aspect of the cuboid suspicious for acute osteomyelitis. No other sign of bone destruction noted. There is gas in the soft tissues which may be secondary to gas-forming bacterial infection. There is ulceration along the lateral aspect of the foot. XR/XR foot LT min 3V* [id number] IMPRESSION: 1. Osseous destruction of the anterior aspect of the cuboid suspicious for acute osteomyelitis. No other sign of bone destruction or fracture. 2. Soft tissue edema with ulceration and gas in the soft tissues as discussed above. Dictated By: Burak Georges, DO A&P Assessment and plan (1) Non healing left heel wound: (2) Osteomyelitis due to type 2 diabetes mellitus: (3) Non-pressure chronic ulcer of other part of left foot with fat layer exposed: Plan Plan: -Imaging and Labs reviewed -Hospitalist on board for medical management. -VTE prophylaxis -Nonweightbearing on left leg -Pain control -N.p.o. after midnight -Surgery tomorrow morning for Left below the knee amputation PDMP PDMP Reviewed: Not Reviewed Coding Level of Care Code Acute Code for Chg Fwd Diagnoses Non healing left heel wound S91.302A Osteomyelitis due to type 2 diabetes mellitus E11.69; M86.9 Non-pressure chronic ulcer of other part of left foot with fat layer exposed L97.522
[2025-01-23] MEDS: sodium chloride 0.9% 1,000 ML 75 ML IV (14:56)
[2025-01-23] MEDS: pantoprazole 40 mg SDV IVP (14:57)
[2025-01-23 15:03] LABS: Cholesterol 98 mg/dL (0-200); HDL Cholesterol 20 mg/dL (60-100); LDL Cholesterol Calculated 51 mg/dL (50-129); LDL HDL Ratio 2.55 RATIO (0.00-3.22); Thyroid Stimulating Hormone 5.97 uIU/mL (0.27-4.20); Triglycerides 134 mg/dL (0-150)
--- NOTE | 2025-01-23 15:27 | XRR_ITS ---
PROCEDURE INFORMATION: Exam: XR Left Tibia and Fibula Exam date and time: 01/23/2025 4:14 PM Age: 69 years old Clinical indication: Pain; Lower leg; Left; Additional info: Preop planning bka TECHNIQUE: Imaging protocol: Radiologic exam of the left tibia and fibula. Views: 2 views. COMPARISON: CR XR foot LT min 3V* [id number] 01/23/2025 9:08 AM FINDINGS: Bones/joints: No acute findings noted with regards to the tibia or fibula. There appear to be postoperative changes status post partial amputation at the level of the midfoot. Soft tissues: There is soft tissue swelling with soft tissue air/gas involving the residual foot suggesting soft tissue infection with gas-forming organism. XR/XR tibia fibula LT 2V [id number] IMPRESSION: 1. Soft tissue air with soft tissue gas involving the foot suspicious for infection with gas-forming organism.
[2025-01-23 16:52] LABS: Glucose Point of Care 212 mg/dL (70-110)
[2025-01-23] MEDS: insulin lispro 100 unit/1 mL SUBCUT ×2 (17:23→21:03)
[2025-01-23] MEDS: enoxaparin 40 mg/0.4 mL Syringe SUBCUT (17:24)
[2025-01-23 20:47] LABS: Glucose Point of Care 215 mg/dL (70-110)
[2025-01-23] MEDS: vancomycin 1,500 MG/300 ML PIGGYBACK 200 MG IV (23:16)
[2025-01-24] VITALS (22 sets, daily range): BP systolic 95–141; BP diastolic 41–84; PULSE 60–95; RESP 16–18; TEMP 36.3–37.1; O2SAT 93–100
[2025-01-24] MEDS: sodium chloride 0.9% 1,000 ML 75 ML IV (03:08)
[2025-01-24] MEDS: piperacillin-tazobactam 3.375 GM in sodium chloride 0.9% (plus) 50 ML IV ×2 (04:20→19:54)
[2025-01-24 06:12] LABS: Basophils % 0.4 %; Eosinophils # 0.1 10^3/uL (0.0-0.8); Hematocrit 29.2 % (37-53); Lymphocytes # 0.7 10^3/uL (0.8-4.8); Lymphocytes % 9.4 %; Mean Corpuscular HGB Conc 30.5 g/dL (30-55); Mean Corpuscular Hemoglobin 24.9 pg (27-33); Mean Corpuscular Volume 81.6 fl (82-101); Mean Platelet Volume 9.6 fL (7.4-10.4); Monocytes # 0.6 10^3/uL (0.2-0.9); Monocytes % 8.9 %; Neutrophils # 5.52 10^3/uL (1.8-7.7); Neutrophils % 79.6 %; Nucleated Red Blood Cells % 0 %; Platelet Count 273 10^3/cmm (157-399); Red Blood Count 3.58 10^6/uL (3.85-5.65); White Blood Count 6.94 10^3/uL (3.29-11.43)
[2025-01-24 06:16] LABS: Glucose Point of Care 118 mg/dL (70-110)
[2025-01-24 06:32] LABS: Blood Urea Nitrogen 16 mg/dL (8-23); Calcium 7.5 mg/dL (8.5-10.5); Carbon Dioxide 22 mmol/L (22-29); Chloride 100 mmol/L (98-107); Creatinine Clr Calc Pharmacy 96.3744; Glomerular Filtration Rate 111.5 mL/min (90-130); Glucose 123 mg/dL (65-115); Magnesium 1.6 mg/dL (1.7-2.3); Osmolality Calculated 279 mOsm/kg (285-295); Phosphorus 3.4 mg/dL (2.5-4.5); Sodium 133 mmol/L (136-145)
--- NOTE | 2025-01-24 10:09 | PHA.VACGOAL ---
Vancomycin Goal - Goal Vancomycin Goal:: 15-20 mg/L Vancomycin Indication:: Other - Therapy Day of therpy:: Day []of [] . Actual body weight (kg): 165 lb 4 oz - Data Labs: WBC 6.94 10^3/uL (3.29-11.43) 01/24/25 05:50 RBC 3.58 10^6/uL (3.85-5.65) L 01/24/25 05:50 Hgb 8.90 g/dL (11.27-16.99) L 01/24/25 05:50 Hct 29.2 % (37-53) L 01/24/25 05:50 MCV 81.6 fl (82-101) L 01/24/25 05:50 MCH 24.9 pg (27-33) L 01/24/25 05:50 MCHC 30.5 g/dL (30-55) 01/24/25 05:50 RDW 15.0 % (12.1-15.1) 01/24/25 05:50 Sodium 133 mmol/L (136-145) L 01/24/25 05:50 Potassium 4.0 mmol/L (3.5-5.1) 01/24/25 05:50 Chloride 100 mmol/L (98-107) 01/24/25 05:50 Carbon Dioxide 22 mmol/L (22-29) 01/24/25 05:50 Anion Gap 15.0 (5-19) 01/24/25 05:50 BUN 16 mg/dL (8-23) 01/24/25 05:50 Creatinine 0.7 mg/dL (0.7-1.2) 01/24/25 05:50 GFR Calculation 111.5 mL/min (90-130) 01/24/25 05:50 Treatment plan:: new consult Regimen:: 1500 MG Q12H
--- NOTE | 2025-01-24 11:07 | ANES.PREANE2 ---
Pre-Anesthetic Assessment Height/Weight: Height 1.88 m Weight 74.956 kg Temp Pulse Resp BP Pulse Ox O2 Del Method O2 Flow Rate 98.8 F 95 16 97/41 95 Room Air 2 01/24/25 07:48 01/24/25 07:48 01/24/25 07:48 01/24/25 07:48 01/24/25 07:48 01/24/25 07:48 01/23/25 19:57 Operation Date: 01/24/25 12:35 Proposed Procedures p Below Knee Amputation(Left) - Sunny Farah DO Familial anesthetic complications: None Was Beta Phillip taken within 24 hours: N/A Was Clonidine taken within 24 hours: N/A Last intake: Intake Last Liquid Date 01/23/25 Last Liquid Time 23:30 Last Solid Date 01/23/25 Last Solid Time 18:00 Social No alcohol and No tobacco Exam alert, oriented x 3, clear to auscultation bilaterally and regular rate & rhythm GI Gastroesophageal Reflux Disease Metabolic Diabetes Mellitus Anesthetic Plan Other: patient declines nerve block Medications/Allergies Home Medications ?Medication ?Instructions ?Recorded ?Confirmed ?Last Taken ?Type cephalexin 500 mg capsule 500 mg PO QID 01/23/25 01/23/25 01/23/25 History glipizide 10 mg tablet 10 mg PO BID 01/23/25 01/23/25 Unknown History insulin glargine 100 unit/mL (3 20 unit SUBCUT DAILY 01/23/25 01/23/25 Unknown History mL) subcutaneous pen (Lantus Solostar U-100 Insulin) Allergies Allergy/AdvReac Type Severity Reaction Status Date / Time clindamycin Allergy Unknown Verified 01/23/25 08:10 soy Allergy Unknown Verified 01/23/25 08:10 laundry detergent Allergy Mild rash Uncoded 01/23/25 08:10 Current Medications Generic Name Dose Route Start Last Admin Trade Name Freq PRN Reason Stop Dose Admin Piperacillin Sod/Tazobactam 50 mls @ 12.5 mls/hr 01/23/25 20:00 01/24/25 08:34 Sod 3.375 gm/ Sodium Chloride IV Infused Q8H GUILLERMO Infusion Protocol Sodium Chloride 1,000 mls @ 75 mls/hr 01/23/25 13:25 01/24/25 03:08 Sodium Chloride 0.9% IV 75 mls/hr .[id number] GUILLERMO Administration Vancomycin HCl 1,500 mg in 300 mls @ 200 mls/hr 01/23/25 23:00 01/24/25 01:07 Vancocin IV Infused Q12H GUILLERMO Infusion Insulin Human Lispro 0 unit 01/23/25 18:00 01/24/25 07:38 Insulin Lispro 100 Unit/1 Ml SUBCUT Not Given WM&BEDTIME GUILLERMO Protocol Pantoprazole Sodium 40 mg 01/23/25 13:25 01/23/25 14:57 Pantoprazole 40 Mg Sdv IVP 40 mg Q24H GUILLERMO Administration PFSH Anesthesia Medical History Partial nontraumatic amputation of foot R trans metatarsal amputation Diabetes Social History Smoking and tobacco/nicotine status: former use of tobacco/nicotine Alcohol intake: never Substance/Drug Use: current Data Anesthesia 01/24/25 05:50 01/24/25 05:50 Short CBC 01/23/25 01/24/25 Range/Units 09:09 05:50 WBC 9.29 6.94 (3.29-11.43) 10^3/uL Hgb 11.20 L 8.90 L (11.27-16.99) g/dL Hct 35.1 L 29.2 L (37-53) % MCV 80.0 L 81.6 L (82-101) fl Plt Count 297 273 (157-399) 10^3/cmm Neut % (Auto) 83.6 79.6 % Neut # (Auto) 7.76 H 5.52 (1.8-7.7) 10^3/uL BMP 01/23/25 01/24/25 09:09 05:50 Sodium 128 L 133 L Potassium 4.6 4.0 Chloride 93 L 100 Carbon Dioxide 21 L 22 BUN 15 16 Creatinine 0.7 0.7 Glucose 204 H 123 H Calcium 8.6 7.5 L Liver Function 01/23/25 Range/Units 09:09 Total Bilirubin 0.9 (0.15-1.2) mg/dL AST 15 (0-40) U/L ALT 11 (0-41) U/L Alkaline Phosphatase 149 H (40-130) U/L Albumin 3.0 L (3.5-5.2) g/dL Microbiology 01/23/25 08:50 Blood Culture - Preliminary Blood NEGATIVE TO DATE 01/23/25 09:09 Blood Culture - Preliminary Blood NEGATIVE TO DATE Cardiac Studies: No Data to Display
[2025-01-24 11:17] LABS: Glucose Point of Care 166 mg/dL (70-110)
[2025-01-24] MEDS: ketorolac 30 mg/mL INJ IVP (11:26)
[2025-01-24] MEDS: acetaminophen 1,000 MG/100 ML PIGGYBACK 400 MG IV (11:27)
[2025-01-24] MEDS: sodium chloride 0.9% 1,000 ML 30 ML IV (11:28)
[2025-01-24] MEDS: scopolamine 1 mg PATCH 1 PATCH TRANSDERMA (11:28)
[2025-01-24] MEDS: diphenhydrAMINE 50 mg/mL SDV 1mL 25 MG IVP ×2 (11:36→12:28)
--- NOTE | 2025-01-24 12:23 | W.PM.OPSUD ---
Surgery/Procedure H&P Update DATE OF PROCEDURE: January 24, 2025 DATE H&P PERFORMED: 01/23/25 H&P UPDATE INFORMATION: I have reviewed H&P completed within last 30 days, I have examined patient prior to procedure and No changes to prior documentation PREOP DIAGNOSIS: Left foot chronic osteomyelitis, draining wound and acute cellulitis PRIMARY INDICATION FOR PROCEDURE: Left foot chronic osteomyelitis, draining wound and acute cellulitis, failed respond to conservative treatment PLANNED PROCEDURE: Operation Date: 01/24/25 12:35 Proposed Procedures p Below Knee Amputation(Left) - Sunny Farah DO
[2025-01-24] MEDS: ceFAZolin 2,000 MG in sodium chloride 0.9% (plus) 50 ML 100 MG IV (13:45)
[2025-01-24] MEDS: lidocaine 1% 10 ML INJ INJECTION (14:35)
[2025-01-24] MEDS: VANCOMYCIN ADD-Vantage 1,000 MG VIAL 1000 MG XX (14:35)
--- NOTE | 2025-01-24 15:08 | W.PM.BPON ---
Date of Procedure: [01/24/2025] Surgeon: [Sunny Farah DO] Patient Relations Specialist(s): [Luke Farah PA-C] Procedure(s) performed: Left below the knee amputation Findings of the procedure(s): [Patient underwent procedure as planned without issues or complications] Estimated blood loss: [50 mL] Specimen(s) removed: [Left lower extremity below the knee amputation removed sent for specimen] Post-operative diagnosis: [Left lower extremity chronic osteomyelitis with cellulitis, with nonhealing left lower extremity diabetic wound]
--- NOTE | 2025-01-24 15:08 | PM.OP ---
Operative Report Date of procedure: January 24, 2025 Pre-op diagnosis: Left foot chronic osteomyelitis, draining wound and acute cellulitis, failed respond to conservative treatment Post-op diagnosis: same Post-op findings: see op note Procedure done: Left below the knee amputation Specimens removed/disposition: Left the knee amputation left lower extremity leg removed and sent for specimen Surgeon: Sunny Farah DO Cotton Picker Operator: Luke Farah PA-C: PA was necessary for assistance in this case with leg positioning assistance with amputation, retraction and protection of neurovascular structures and tying off of vascular structures, as well as assistance in wound closure and dressing application. Anesthesia: General Estimated blood loss: 50mL 24min IV fluids: 1100mL Complications: none Findings: see op note Condition: stable Disposition: floor Brief History: Patient is a pleasant 69-year-old male who unfortunately has peripheral vascular disease as well as diabetic foot ulcerations he subsequently had a transmetatarsal amputation of his chronic osteomyelitis in the left foot, patient has draining wound nonhealing failed respond to conservative treatment originally was planning on an outpatient below the knee amputation however return to the emergency department with worsening infection. He has not worsening cellulitis in this area up to the ankle at this point time patient is ready to proceed with a left below the knee. We talked about this in detail with patient and at this point in time he understands the ins and outs procedure, the risk the benefits of the complications alternatives of surgical intervention through shared decision-making elects proceed with a left below the knee amputation. All questions have been answered at this time. Has been medically optimized by the medical team. Plan to proceed with a left below the knee amputation. Procedure: PROCEDURE IN DETAIL: ?The patient was identified in the preoperative holding area. ?The operative site was clearly marked and identified, and informed consent was obtained. ?Patient did participate in identifying the operative site. ?Patient was transferred to the operating table and positioned in supine position, where adequate anesthesia was administered per the Anesthesia Department. ?A nonsterile tourniquet was placed high on the operative lower extremity. The operative lower extremity was then positioned, prepped and draped in the usual sterile orthopedic fashion. The distal most aspect of the lower extremity was secured in a sterile stockinette with sterile Coban. ? After several minutes of elevation, the tourniquet was inflated. ?We delineated our topographical anatomy, marking out our tibial resection at approximately 12 cm distal to the medial joint line. ?The skin flaps were elucidated with a surgical marker using a 1/3rd anterior-posterior 2/3rd flap. The skin was then incised with a 10-blade scalpel and then Bovie electrocautery was used to dissect the subcutaneous tissue as we delineated the anterior margins of the tibia and fibula. ?Anterolateral soft tissue envelope was clearly evaluated. ?Again, the muscle demonstrated good contractility and good color. It was determined that we were outside of the zone of the infection at this level. Then proceeded with the amputation. ?I delineated our peroneal neurovascular bundle and ligated it with 0 silk tie doubled up. ?Once I delineated the anterior cortices of the tibia and fibula, soft tissues were protected with soft tissue retraction and a sagittal saw was used to transect the tibia at approximately 12 cm distal to the joint line and then the fibula just proximal to that obliquely. ? then the amputation knife was taken along the posterior cortex of the tibia and the fibula, transecting the soft tissues distally, leaving a nice long posterior flap. ? The specimen was then marked right foot and ankle and sent for permanent pathology and disposal. ? We did debulk the posterior flap just a bit, found the remainder of the neurovascular bundles. ?Again, we even identified the sural nerve posteriorly and the tibial nerve. ?These were injected with lidocaine plain and then placed under traction and transected with 15-blade scalpel prior to allowing them to retract well into the residual stump. ?Again, the additional bundles were ligated with Vicryl knot doubled up. ?We irrigated with copious amounts of normal saline and then deflated the tourniquet to verify adequate hemostasis and good capillary refill distally. ?Again, all of the bundles were ligated appropriately. ?We had excellent hemostasis. Vancomycin powder was placed in wound bed for antibiotic infection prophylaxis. ?I then facilitated the primary myodesis anterior to posterior with #1 strata fix. ?The skin was then closed with 2-0 STRATAFIX and then skin josé miguel. ?A sterile dressing was applied with Xeroform, 4x4s, ABD, soft roll, and an Wagner wrap. ?The patient was transferred to Recovery in stable condition. Disposition: Patient is going to be return to the floor for medical management per the hospitalist team. ?We will continue IV antibiotics. Pain control and will follow-up with orthopedics in 2 weeks for dressing evaluation. At this point in time orthopedics will follow patient in the hospital. Patient understands agrees to current plan. Questions answered.
--- NOTE | 2025-01-24 15:30 | ANE.PACU2 ---
Inpatient post-anesthesia follow up: Airway intact: Yes Vital signs: Temperature 97.4 F Pulse Rate 69 Respiratory Rate 16 Blood Pressure 141/69 Pulse Oximetry 100 Oxygen Delivery Me thod [ Room Air Current Rate & Del rush] Oxygen Delivery Me thod Room Air Oxygen Flow Rate 6 Fraction of Inspir ed Oxygen Hydration adequate: Yes Nausea and vomiting: No Pain level: 3 Mental status: Baseline
[2025-01-24] MEDS: morphine 4 mg/mL SDV 1 mL 2 MG IVP ×2 (15:58→20:00)
--- NOTE | 2025-01-24 16:28 | P.PN_ITS ---
Subjective 2 Subjective: Patient was seen this morning, he seen preoperatively, denies any fevers, chills, cough, no nausea, no vomiting,, currently n.p.o. for surgical intervention Vitals/I&O/Wt Last Vital Signs Temp 97.4 F L 01/24/25 15:46 Pulse 69 01/24/25 16:05 Resp 16 01/24/25 16:05 BP 141/69 01/24/25 16:05 Pulse Ox 100 01/24/25 16:05 O2 Del Method Room Air 01/24/25 16:05 O2 Flow Rate 6 01/24/25 15:09 01/24/25 01/24/25 01/24/25 06:59 14:59 22:59 Intake Total 1265 / 2045 1050 / 1050 150 / 1200 Output Total 1000 / 1480 50 / 50 Balance 265 / 565 1050 / 1050 100 / 1150 Weight last 48 hrs Weight 74.956 kg Weight 75.07 kg Weight 81.193 kg Physical Exam 2 Const: COMMON NORMALS: no acute distress and patient oriented x3 Resp: COMMON NORMALS: normal respiratory effort, No retractions, No use of accessory muscles and clear to auscultation bilaterally AUSCULTATION: clear to auscultation bilaterally Cardio: COMMON NORMALS: regular rate, regular rhythm, S1 normal heart sound present and S2 normal heart sound present RATE: regular rate RHYTHM: r egular rhythm HEART SOUNDS: S1 normal heart sound present and S2 normal heart sound present GI: COMMON NORMALS: Normal to inspection, nondistended, normoactive bowel sounds present and non-tender Extremity: COMMON NORMALS: no pedal edema Neuro: COMMON NORMALS: patient oriented x3 Psych: COMMON NORMALS: mental status grossly normal Data 01/24/25 05:50 01/24/25 05:50 Micro: Microbiology 01/23/25 08:50 Blood Culture - Preliminary Blood NEGATIVE TO DATE 01/23/25 09:09 Blood Culture - Preliminary Blood NEGATIVE TO DATE A&P Assessment and plan (1) Dehiscence of amputation stump of left lower extremity: (2) Diabetic peripheral neuropathy associated with type 2 diabetes mellitus: Plan Left foot stump diabetic foot infection, with sepsis - Requiring IV antibiotics - Requiring orthopedic evaluation, possible below-knee amputation Plan - Follow blood cultures - Continue vancomycin - Continue Zosyn - Moderate dose sliding scale - Currently n.p.o. - Plan for below-knee amputation - Orthopedic service consulted - Lovenox for DVT prophylaxis - CODE STATUS he is a DNR, but is okay with elective intubation if required - Hemoglobin is down to 8.9 today, will recheck this afternoon PDMP PDMP Reviewed: Not Reviewed Attestations 2 Medical Necessity Statement*: Patient requires hospitalization for left foot stump diabetic foot infection requiring below-knee amputation, with acute anemia Diagnoses Dehiscence of amputation stump of left lower extremity T87.81 Diabetic peripheral neuropathy associated with type 2 diabetes mellitus E11.42
[2025-01-24 16:30] LABS: Basophils % 0.4 %; Eosinophils # 0.1 10^3/uL (0.0-0.8); Eosinophils % 1.1 %; Hematocrit 31.6 % (37-53); Lymphocytes # 0.5 10^3/uL (0.8-4.8); Lymphocytes % 9.7 %; Mean Corpuscular HGB Conc 30.1 g/dL (30-55); Mean Corpuscular Hemoglobin 25.3 pg (27-33); Monocytes # 0.4 10^3/uL (0.2-0.9); Monocytes % 6.9 %; Neutrophils # 4.32 10^3/uL (1.8-7.7); Nucleated Red Blood Cells % 0 %; Platelet Count 270 10^3/cmm (157-399); Red Blood Count 3.76 10^6/uL (3.85-5.65); Red Cell Distribution Width 15.1 % (12.1-15.1); White Blood Count 5.34 10^3/uL (3.29-11.43)
[2025-01-24 16:56] LABS: Anion Gap 19.8 (5-19); Blood Urea Nitrogen 18 mg/dL (8-23); Calcium 8.7 mg/dL (8.5-10.5); Carbon Dioxide 19 mmol/L (22-29); Chloride 102 mmol/L (98-107); Creatinine Clr Calc Pharmacy 77.0996; Glomerular Filtration Rate 73.9 mL/min (90-130); Glucose 178 mg/dL (65-115); Osmolality Calculated 290 mOsm/kg (285-295); Potassium 3.8 mmol/L (3.5-5.1); Sodium 137 mmol/L (136-145)
[2025-01-24 16:59] LABS: Glucose Point of Care 215 mg/dL (70-110)
[2025-01-24] MEDS: insulin lispro 100 unit/1 mL SUBCUT ×2 (17:29→20:50)
[2025-01-24] MEDS: oxyCODONE 5 mg IR Tab/Cap PO (17:29)
[2025-01-24] MEDS: iron polysaccharide complex 150 mg Capsule PO (17:30)
[2025-01-24] MEDS: chlorhexidine gluconate 0.12% Btl 473 mL 30 ML MUCOUS MEM ×2 (17:35→20:01)
[2025-01-24] MEDS: tranexamic acid 1,000 MG/100 ML PREMIX 600 MG IV (18:07)
[2025-01-24 20:30] LABS: Glucose Point of Care 233 mg/dL (70-110)
[2025-01-24] MEDS: hyDROXYzine 25 mg Capsule PO (21:51)
[2025-01-24] MEDS: vancomycin 1,500 MG/300 ML PIGGYBACK 200 MG IV (23:41)
[2025-01-25] VITALS (10 sets, daily range): BP systolic 109–132; BP diastolic 53–67; PULSE 60–75; RESP 16–18; TEMP 36.4–36.7; O2SAT 92–99
[2025-01-25] MEDS: hyDROXYzine 25 mg Capsule PO ×4 (03:41→17:54)
[2025-01-25] MEDS: piperacillin-tazobactam 3.375 GM in sodium chloride 0.9% (plus) 50 ML IV (03:42)
[2025-01-25 05:15] LABS: Basophils % 0.7 %; Eosinophils # 0.2 10^3/uL (0.0-0.8); Eosinophils % 3.9 %; Hematocrit 30.4 % (37-53); Lymphocytes # 0.7 10^3/uL (0.8-4.8); Lymphocytes % 16.2 %; Mean Corpuscular HGB Conc 28.9 g/dL (30-55); Mean Corpuscular Hemoglobin 25.4 pg (27-33); Mean Corpuscular Volume 87.6 fl (82-101); Mean Platelet Volume 9.4 fL (7.4-10.4); Monocytes # 0.3 10^3/uL (0.2-0.9); Monocytes % 7.9 %; Neutrophils # 3.05 10^3/uL (1.8-7.7); Neutrophils % 70.4 %; Nucleated Red Blood Cells % 0 %; Platelet Count 248 10^3/cmm (157-399); Red Blood Count 3.47 10^6/uL (3.85-5.65); Red Cell Distribution Width 15.3 % (12.1-15.1); White Blood Count 4.33 10^3/uL (3.29-11.43)
[2025-01-25 05:32] LABS: Blood Urea Nitrogen 20 mg/dL (8-23); Calcium 7.8 mg/dL (8.5-10.5); Carbon Dioxide 20 mmol/L (22-29); Chloride 104 mmol/L (98-107); Creatinine Clr Calc Pharmacy 97.1571; Glomerular Filtration Rate 95.6 mL/min (90-130); Glucose 180 mg/dL (65-115); Magnesium 1.7 mg/dL (1.7-2.3); Osmolality Calculated 289 mOsm/kg (285-295); Phosphorus 4.3 mg/dL (2.5-4.5); Sodium 136 mmol/L (136-145)
[2025-01-25 06:24] LABS: Glucose Point of Care 208 mg/dL (70-110)
[2025-01-25] MEDS: sodium chloride 0.9% 1,000 ML 75 ML IV (06:37)
[2025-01-25] MEDS: insulin lispro 100 unit/1 mL SUBCUT ×3 (07:52→21:16)
[2025-01-25] MEDS: iron polysaccharide complex 150 mg Capsule PO ×2 (07:53→17:54)
[2025-01-25] MEDS: oxyCODONE 5 mg IR Tab/Cap PO ×2 (07:53→17:53)
[2025-01-25] MEDS: multivitamin therapeutic Tablet 1 TAB PO (07:53)
--- NOTE | 2025-01-25 07:57 | P.PN_ITS ---
Subjective 2 Subjective: Patient seen and examined postoperative day 1 left BKA. Recovering well pain control with medications. Vitals/I&O/Wt Last Vital Signs Temp 97.5 F L 01/25/25 07:39 Pulse 70 01/25/25 07:39 Resp 18 01/25/25 07:39 BP 120/53 01/25/25 07:39 Pulse Ox 92 01/25/25 07:39 O2 Del Method Room Air 01/25/25 07:39 O2 Flow Rate 6 01/24/25 15:09 01/24/25 01/25/25 01/25/25 22:59 06:59 14:59 Intake Total 1710 / 2760 710 / 3470 Output Total 50 / 50 Balance 1660 / 2710 710 / 3420 Weight last 48 hrs Weight 168 lb 12.8 oz Weight 165 lb 4 oz Weight 165 lb 8 oz Weight 179 lb Physical Exam 2 Narrative: Left lower extremity examination: Left lower extremity BKA stump dressing is on and in place. Dressing is clean dry and intact. Patient can gently range the knee without issues or complications. Patient endorses sensation intact to light touch to the stump. Dressings left on in place. Compartments are soft and compressible. Data 01/28/25 05:10 01/28/25 05:10 Other Labs: AM labs reviewed on 01/25/2025: 8.8 hemoglobin WBC 4.33 Micro: Microbiology 01/23/25 08:50 Blood Culture - Preliminary Blood NEGATIVE TO DATE 01/23/25 09:09 Blood Culture - Preliminary Blood NEGATIVE TO DATE A&P Assessment and plan (1) Below-knee amputation of left lower extremity: Plan Will resume diet Antibiotics per primary Pain control PT/OT Nonweightbearing left lower extremity BKA stump Dressing on in place clean dry and intact change as needed if saturation Orthopedics will continue to follow Internal medicine on board as primary Planning on discharge to rehab facility upon discharge PDMP PDMP Reviewed: Not Reviewed Attestations 2 Medical Necessity Statement*: Ongoing care status post left BKA stump secondary to chronic osteomyelitis cellulitis of the left foot Coding Level of Care Code Acute Code for Chg Fwd Diagnoses Below-knee amputation of left lower extremity S88.112A Time Spent (min) 10
[2025-01-25] MEDS: morphine 4 mg/mL SDV 1 mL 2 MG IVP (10:21)
[2025-01-25 11:13] LABS: Glucose Point of Care 187 mg/dL (70-110)
[2025-01-25] MEDS: pantoprazole 40 mg SDV IVP (13:26)
--- NOTE | 2025-01-25 14:16 | PC.NURSE ---
This nurse gave report to KARINA Blair
--- NOTE | 2025-01-25 14:26 | P.PN_ITS ---
Subjective 2 Subjective: Patient was seen this morning, denies any fevers, chills, cough, nausea, vomiting Vitals/I&O/Wt Last Vital Signs Temp 97.5 F L 01/25/25 11:25 Pulse 69 01/25/25 11:25 Resp 17 01/25/25 11:25 BP 109/54 01/25/25 11:25 Pulse Ox 98 01/25/25 11:25 O2 Del Method Room Air 01/25/25 11:25 O2 Flow Rate 6 01/24/25 15:09 01/24/25 01/25/25 01/25/25 22:59 06:59 14:59 Intake Total 1710 / 2760 710 / 3470 1081.25 / 1081.25 Output Total 50 / 50 1400 / 1400 Balance 1660 / 2710 710 / 3420 -318.75 / -318.75 Weight last 48 hrs Weight 76.566 kg Weight 74.956 kg Physical Exam 2 Const: COMMON NORMALS: no acute distress and patient oriented x3 Resp: COMMON NORMALS: normal respiratory effort, No retractions, No use of accessory muscles and clear to auscultation bilaterally AUSCULTATION: clear to auscultation bilaterally Cardio: COMMON NORMALS: regular rate, regular rhythm, S1 normal heart sound present and S2 normal heart sound present RATE: regular rate RHYTHM: r egular rhythm HEART SOUNDS: S1 normal heart sound present and S2 normal heart sound present GI: COMMON NORMALS: Normal to inspection, nondistended, normoactive bowel sounds present and non-tender Extremity: NARRATIVE EXTREMITY EXAM: Surgical site is wrapped Neuro: COMMON NORMALS: patient oriented x3 Psych: COMMON NORMALS: mental status grossly normal Data 01/25/25 04:34 01/25/25 04:34 A&P Assessment and plan (1) Dehiscence of amputation stump of left lower extremity: (2) Diabetic peripheral neuropathy associated with type 2 diabetes mellitus: Plan Left foot stump diabetic foot infection, with sepsis - Requiring IV antibiotics - Requiring orthopedic evaluation, status post below-knee amputation Plan - Follow blood cultures - De-escalate off IV antibiotics - Moderate dose sliding scale - Diabetic diet - Hydrocodone for pain control - Orthopedic service consulted - Lovenox for DVT prophylaxis - CODE STATUS he is a DNR, but is okay with elective intubation if required - Hemoglobin is up to 8.8, denies any bloody or black stools, no history of anemia, no history of requiring blood transfusions no history of GI bleed, resume DVT prophylaxis Lovenox tonight - PT OT, nonweightbearing left lower extremity PDMP PDMP Reviewed: Not Reviewed Attestations 2 Medical Necessity Statement*: Patient requires hospitalization for left foot diabetic foot infection, status post BKA, Diagnoses Dehiscence of amputation stump of left lower extremity T87.81 Diabetic peripheral neuropathy associated with type 2 diabetes mellitus E11.42
[2025-01-25 16:37] LABS: Glucose Point of Care 117 mg/dL (70-110)
[2025-01-25] MEDS: chlorhexidine gluconate 0.12% Btl 473 mL 30 ML MUCOUS MEM ×2 (17:54→21:16)
[2025-01-25] MEDS: acetaminophen 325 mg Tablet 650 MG PO (19:28)
[2025-01-25] MEDS: enoxaparin 40 mg/0.4 mL Syringe SUBCUT (21:17)
[2025-01-25 21:25] LABS: Glucose Point of Care 204 mg/dL (70-110)
[2025-01-25 21:58] LABS: Glucose Point of Care 193 mg/dL (70-110)
--- NOTE | 2025-01-25 22:33 | PC.NURSE ---
Patient received 8 units of insulin, Patient was per protocol was to receive 6 units for blood sugar of 204. Nurse was informed of error by charge nurse, Doctor was informed of error and the warehouse stock clerk. Patients blood sugar was rechecked after 30 minutes, blood sugar was 193.
[2025-01-26] VITALS (10 sets, daily range): BP systolic 110–137; BP diastolic 54–70; PULSE 66–74; RESP 16–20; TEMP 36.6–36.9; O2SAT 95–99
[2025-01-26] MEDS: hyDROXYzine 25 mg Capsule PO ×2 (00:22→14:35)
[2025-01-26] MEDS: oxyCODONE 5 mg IR Tab/Cap PO ×3 (00:22→17:16)
[2025-01-26 05:01] LABS: Basophils % 0.6 %; Eosinophils # 0.2 10^3/uL (0.0-0.8); Eosinophils % 3.4 %; Hematocrit 29.7 % (37-53); Lymphocytes # 0.7 10^3/uL (0.8-4.8); Lymphocytes % 13.9 %; Mean Corpuscular HGB Conc 30.3 g/dL (30-55); Mean Corpuscular Hemoglobin 25.2 pg (27-33); Mean Corpuscular Volume 83.2 fl (82-101); Mean Platelet Volume 9.2 fL (7.4-10.4); Monocytes # 0.3 10^3/uL (0.2-0.9); Monocytes % 6.8 %; Neutrophils % 74.5 %; Nucleated Red Blood Cells % 0 %; Platelet Count 317 10^3/cmm (157-399); Red Blood Count 3.57 10^6/uL (3.85-5.65); Red Cell Distribution Width 15.2 % (12.1-15.1); White Blood Count 4.97 10^3/uL (3.29-11.43)
[2025-01-26 05:13] LABS: Anion Gap 14.2 (5-19); Blood Urea Nitrogen 11 mg/dL (8-23); Calcium 7.6 mg/dL (8.5-10.5); Carbon Dioxide 22 mmol/L (22-29); Chloride 103 mmol/L (98-107); Creatinine Clr Calc Pharmacy 97.1571; Glomerular Filtration Rate 164.4 mL/min (90-130); Glucose 98 mg/dL (65-115); Magnesium 1.6 mg/dL (1.7-2.3); Osmolality Calculated 279 mOsm/kg (285-295); Phosphorus 3.2 mg/dL (2.5-4.5); Potassium 4.2 mmol/L (3.5-5.1); Sodium 135 mmol/L (136-145)
[2025-01-26 07:53] LABS: Glucose Point of Care 130 mg/dL (70-110)
[2025-01-26] MEDS: multivitamin therapeutic Tablet 1 TAB PO (08:57)
[2025-01-26] MEDS: iron polysaccharide complex 150 mg Capsule PO ×2 (08:57→17:16)
[2025-01-26] MEDS: chlorhexidine gluconate 0.12% Btl 473 mL 30 ML MUCOUS MEM ×4 (08:58→21:41)
[2025-01-26 10:58] LABS: Glucose Point of Care 233 mg/dL (70-110)
[2025-01-26] MEDS: insulin lispro 100 unit/1 mL SUBCUT ×3 (11:46→21:42)
--- NOTE | 2025-01-26 12:46 | P.PN_ITS ---
Subjective 2 Subjective: Patient postoperative day 2 from a left BKA. Patient is doing well and stable from orthopedic standpoint. Dressings on in place clean dry and intact pain controlled medications. Vitals/I&O/Wt Last Vital Signs Temp 97.8 F 01/26/25 11:24 Pulse 68 01/26/25 11:24 Resp 16 01/26/25 11:24 BP 118/66 01/26/25 11:24 Pulse Ox 96 01/26/25 11:24 O2 Del Method Room Air 01/26/25 11:24 O2 Flow Rate 6 01/24/25 15:09 01/25/25 01/26/25 01/26/25 22:59 06:59 14:59 Intake Total 240 / 1321.25 300 / 300 Balance 240 / -78.75 300 / 300 Weight last 48 hrs Weight 168 lb 4 oz Weight 168 lb 12.8 oz Physical Exam 2 Narrative: Left lower extremity examination: Left lower extremity BKA stump dressing is on and in place. Dressing is clean dry and intact. Patient can gently range the knee without issues or complications. Patient endorses sensation intact to light touch to the stump. Dressings left on in place. Compartments are soft and compressible. Data 01/28/25 05:10 01/28/25 05:10 Other Labs: AM labs 01/26/2025 listed below: WBC 4.97 Hemoglobin 9.00 A&P Assessment and plan (1) Below-knee amputation of left lower extremity: Plan Postop day 2 left BKA diet Antibiotics per primary Pain control PT/OT DVT prophylaxis Nonweightbearing left lower extremity BKA stump Dressing on in place clean dry and intact change as needed if saturation Internal medicine on board as primary Planning on discharge to rehab facility upon discharge Patient at this point time stable from orthopedic standpoint no further orthopedic surgical intervention required at this time. Orthopedic surgery team will sign off patient at this time for prophylaxis any questions pertaining to patient's care. Free to contact orthopedics on-call. Patient will have appropriate discharge instructions and pain medication postoperatively with plan to follow-up in the orthopedic office in 2 weeks upon discharge. Patient understands and agrees with current plan. All questions answered. PDMP PDMP Reviewed: Not Reviewed Attestations 2 Medical Necessity Statement*: Ongoing care status post left BKA stump secondary to chronic osteomyelitis cellulitis of the left foot Coding Level of Care Code Acute Code for Chg Fwd Diagnoses Below-knee amputation of left lower extremity S88.112A Time Spent (min) 15
[2025-01-26] MEDS: pantoprazole 40 mg SDV IVP (14:31)
--- NOTE | 2025-01-26 16:38 | P.PN_ITS ---
Subjective 2 Subjective: Patient was seen this morning, he has no acute complaints, no fevers, no chills, no cough, he does report a maculopapular rash, on his chest on his arms, spares his hands spares the soles of his feet, spares his face, he has had for the last few months, it is pruritic, he saw a technical document writer he tells me 1 time, and was told it was a drug reaction, potentially to metformin, glipizide, denies a history of bedbugs Vitals/I&O/Wt Last Vital Signs Temp 97.8 F 01/26/25 11:24 Pulse 68 01/26/25 11:24 Resp 16 01/26/25 11:24 BP 118/66 01/26/25 11:24 Pulse Ox 96 01/26/25 11:24 O2 Del Method Room Air 01/26/25 11:24 O2 Flow Rate 6 01/24/25 15:09 01/26/25 01/26/25 01/26/25 06:59 14:59 22:59 Intake Total 660 / 660 Balance 660 / 660 Weight last 48 hrs Weight 76.317 kg Weight 76.566 kg Physical Exam 2 Const: COMMON NORMALS: no acute distress and patient oriented x3 Resp: COMMON NORMALS: normal respiratory effort, No retractions, No use of accessory muscles and clear to auscultation bilaterally AUSCULTATION: clear to auscultation bilaterally Cardio: COMMON NORMALS: regular rate, regular rhythm, S1 normal heart sound present and S2 normal heart sound present RATE: regular rate RHYTHM: r egular rhythm HEART SOUNDS: S1 normal heart sound present and S2 normal heart sound present GI: COMMON NORMALS: Normal to inspection, nondistended, normoactive bowel sounds present and non-tender Extremity: NARRATIVE EXTREMITY EXAM: Surgical site looks clean and dry, wrapped OTHER: Maculopapular rash, on chest, abdomen, arms, pruritic Neuro: COMMON NORMALS: patient oriented x3 Psych: COMMON NORMALS: mental status grossly normal Data 01/26/25 04:35 01/26/25 04:35 A&P Assessment and plan (1) Dehiscence of amputation stump of left lower extremity: (2) Diabetic peripheral neuropathy associated with type 2 diabetes mellitus: Plan Left foot stump diabetic foot infection, with sepsis, resolving - Requiring IV antibiotics - Requiring orthopedic evaluation, status post below-knee amputation Plan - Follow blood cultures - De-escalate off IV antibiotics - Moderate dose sliding scale - Diabetic diet - Hydrocodone for pain control - Orthopedic service consulted - Lovenox for DVT prophylaxis - CODE STATUS he is a DNR, but is okay with elective intubation if required - Hemoglobin is up to 9.0, denies any bloody or black stools, no history of anemia, no history of requiring blood transfusions no history of GI bleed, resume DVT prophylaxis Lovenox - PT OT, nonweightbearing left lower extremity - Will give 1 dose of steroids due to diffuse rash PDMP PDMP Reviewed: Not Reviewed Attestations 2 Medical Necessity Statement*: Patient requires hospitalization for left foot stump diabetic foot infection with sepsis Diagnoses Dehiscence of amputation stump of left lower extremity T87.81 Diabetic peripheral neuropathy associated with type 2 diabetes mellitus E11.42
[2025-01-26 16:49] LABS: Glucose Point of Care 157 mg/dL (70-110)
[2025-01-26] MEDS: methylPREDNISolone sod succ 125 mg/2 mL INJ IVP (17:16)
[2025-01-26 20:42] LABS: Glucose Point of Care 154 mg/dL (70-110)
[2025-01-26] MEDS: enoxaparin 40 mg/0.4 mL Syringe SUBCUT (21:41)
[2025-01-27] VITALS: BP 105/53; PULSE 73; RESP 18; TEMP 36.9; O2SAT 97
[2025-01-27 04:00] VITALS: BP 124/65; PULSE 69; RESP 17; TEMP 36.8; O2SAT 98
[2025-01-27 05:27] LABS: Hematocrit 30.5 % (37-53); Lymphocytes # 0.3 10^3/uL (0.8-4.8); Mean Corpuscular HGB Conc 29.5 g/dL (30-55); Mean Corpuscular Hemoglobin 25.1 pg (27-33); Mean Corpuscular Volume 85.2 fl (82-101); Mean Platelet Volume 9.6 fL (7.4-10.4); Monocytes # 0.1 10^3/uL (0.2-0.9); Monocytes % 1.4 %; Neutrophils # 3.95 10^3/uL (1.8-7.7); Neutrophils % 91.9 %; Nucleated Red Blood Cells % 0 %; Platelet Count 350 10^3/cmm (157-399); Red Blood Count 3.58 10^6/uL (3.85-5.65); Red Cell Distribution Width 15.3 % (12.1-15.1)
[2025-01-27 05:42] LABS: Anion Gap 20.1 (5-19); Blood Urea Nitrogen 16 mg/dL (8-23); Calcium 7.6 mg/dL (8.5-10.5); Carbon Dioxide 18 mmol/L (22-29); Chloride 103 mmol/L (98-107); Creatinine Clr Calc Pharmacy 96.5621; Glomerular Filtration Rate 133.2 mL/min (90-130); Glucose 303 mg/dL (65-115); Osmolality Calculated 295 mOsm/kg (285-295); Potassium 5.1 mmol/L (3.5-5.1); Sodium 136 mmol/L (136-145)
[2025-01-27 06:30] LABS: Glucose Point of Care 331 mg/dL (70-110)
[2025-01-27 07:07] VITALS: BP 125/62; PULSE 64; RESP 15; TEMP 36.9; O2SAT 96
[2025-01-27] MEDS: iron polysaccharide complex 150 mg Capsule PO ×2 (08:44→17:55)
[2025-01-27] MEDS: insulin lispro 100 unit/1 mL SUBCUT ×3 (08:44→20:55)
[2025-01-27] MEDS: multivitamin therapeutic Tablet 1 TAB PO (08:44)
[2025-01-27] MEDS: chlorhexidine gluconate 0.12% Btl 473 mL 30 ML MUCOUS MEM ×4 (08:46→21:52)
[2025-01-27] MEDS: insulin glargine 100 units/1 mL 10 UNIT SUBCUT (09:32)
[2025-01-27 11:04] LABS: Glucose Point of Care 326 mg/dL (70-110)
[2025-01-27 11:42] VITALS: BP 137/72; PULSE 62; RESP 16; TEMP 36.9; O2SAT 100
--- NOTE | 2025-01-27 13:35 | P.PN_ITS ---
Subjective 2 Subjective: Patient was seen this morning, denies any acute events overnight no fevers, chills, no cough, no nausea, no vomiting Vitals/I&O/Wt Last Vital Signs Temp 98.5 F 01/27/25 11:42 Pulse 62 01/27/25 11:42 Resp 16 01/27/25 11:42 BP 137/72 01/27/25 11:42 Pulse Ox 100 01/27/25 11:42 O2 Del Method Room Air 01/27/25 11:42 O2 Flow Rate 6 01/24/25 15:09 01/26/25 01/27/25 01/27/25 22:59 06:59 14:59 Intake Total 720 / 1380 354 / 354 Output Total 900 / 900 600 / 1500 Balance -180 / 480 -600 / -120 354 / 354 Weight last 48 hrs Weight 75.342 kg Weight 76.317 kg Physical Exam 2 Const: COMMON NORMALS: no acute distress and patient oriented x3 Resp: COMMON NORMALS: normal respiratory effort, No retractions, No use of accessory muscles and clear to auscultation bilaterally AUSCULTATION: clear to auscultation bilaterally Cardio: COMMON NORMALS: regular rate, regular rhythm, S1 normal heart sound present and S2 normal heart sound present RATE: regular rate RHYTHM: r egular rhythm HEART SOUNDS: S1 normal heart sound present and S2 normal heart sound present GI: COMMON NORMALS: Normal to inspection, nondistended, normoactive bowel sounds present and non-tender Extremity: COMMON NORMALS: no pedal edema Neuro: COMMON NORMALS: patient oriented x3 Psych: COMMON NORMALS: mental status grossly normal Data 01/27/25 04:50 01/27/25 04:50 A&P Assessment and plan (1) Dehiscence of amputation stump of left lower extremity: (2) Diabetic peripheral neuropathy associated with type 2 diabetes mellitus: Plan Left foot stump diabetic foot infection, with sepsis, resolving - Requiring IV antibiotics - Requiring orthopedic evaluation, status post below-knee amputation Plan - Follow blood cultures - De-escalate off IV antibiotics - Moderate dose sliding scale - Diabetic diet - Hydrocodone for pain control - Orthopedic service consulted - Lovenox for DVT prophylaxis - CODE STATUS he is a DNR, but is okay with elective intubation if required - Hemoglobin is up to 9.0, denies any bloody or black stools, no history of anemia, no history of requiring blood transfusions no history of GI bleed -resume DVT prophylaxis Lovenox - PT OT, nonweightbearing left lower extremity - Will give 1 dose of steroids due to diffuse rash PDMP PDMP Reviewed: Not Reviewed Attestations 2 Medical Necessity Statement*: Patient requires hospitalization for left foot stump diabetic foot infection status post below-knee amputation, tolerated procedure well, Diagnoses Dehiscence of amputation stump of left lower extremity T87.81 Diabetic peripheral neuropathy associated with type 2 diabetes mellitus E11.42
[2025-01-27] MEDS: polyethylene glycol 3350 Pkt 17 gm PO (13:53)
[2025-01-27 15:54] LABS: Glucose Point of Care 137 mg/dL (70-110)
[2025-01-27 16:00] VITALS: BP 126/56; PULSE 63; RESP 17; TEMP 36.6; O2SAT 98
[2025-01-27 20:00] VITALS: BP 123/68; PULSE 63; RESP 17; TEMP 36.7; O2SAT 99
[2025-01-27 20:31] LABS: Glucose Point of Care 238 mg/dL (70-110)
[2025-01-27] MEDS: enoxaparin 40 mg/0.4 mL Syringe SUBCUT (20:55)
[2025-01-28] VITALS (7 sets, daily range): BP systolic 110–140; BP diastolic 53–73; PULSE 52–65; RESP 16–17; TEMP 36.3–37.1; O2SAT 61–99
[2025-01-28 06:14] LABS: Basophils % 0.2 %; Eosinophils # 0.1 10^3/uL (0.0-0.8); Eosinophils % 1.3 %; Hematocrit 29.2 % (37-53); Lymphocytes # 0.9 10^3/uL (0.8-4.8); Lymphocytes % 19.1 %; Mean Corpuscular HGB Conc 29.8 g/dL (30-55); Mean Corpuscular Hemoglobin 24.8 pg (27-33); Mean Corpuscular Volume 83.2 fl (82-101); Mean Platelet Volume 9.4 fL (7.4-10.4); Monocytes # 0.3 10^3/uL (0.2-0.9); Neutrophils # 3.27 10^3/uL (1.8-7.7); Neutrophils % 71.7 %; Nucleated Red Blood Cells % 0 %; Platelet Count 357 10^3/cmm (157-399); Red Blood Count 3.51 10^6/uL (3.85-5.65); Red Cell Distribution Width 15.1 % (12.1-15.1); White Blood Count 4.56 10^3/uL (3.29-11.43)
[2025-01-28 06:21] LABS: Glucose Point of Care 171 mg/dL (70-110)
[2025-01-28 06:37] LABS: Alanine Aminotransferase 12 U/L (0-41); Albumin Level 2.4 g/dL (3.5-5.2); Alkaline Phosphatase 79 U/L (40-130); Anion Gap 12.7 (5-19); Aspartate Amino Transferase 20 U/L (0-40); Blood Urea Nitrogen 18 mg/dL (8-23); Calcium 7.6 mg/dL (8.5-10.5); Carbon Dioxide 24 mmol/L (22-29); Chloride 105 mmol/L (98-107); Creatinine Clr Calc Pharmacy 97.5542; Globulin 3.1 g/dL (1.3-4.6); Glomerular Filtration Rate 164.4 mL/min (90-130); Glucose 173 mg/dL (65-115); Osmolality Calculated 290 mOsm/kg (285-295); Potassium 4.7 mmol/L (3.5-5.1); Sodium 137 mmol/L (136-145); Total Bilirubin 0.2 mg/dL (0.15-1.2); Total Protein 5.5 g/dL (6.6-8.7)
[2025-01-28] MEDS: insulin lispro 100 unit/1 mL SUBCUT ×2 (08:07→12:32)
[2025-01-28] MEDS: insulin glargine 100 units/1 mL 10 UNIT SUBCUT (08:07)
[2025-01-28] MEDS: polyethylene glycol 3350 Pkt 17 gm PO (08:07)
[2025-01-28] MEDS: iron polysaccharide complex 150 mg Capsule PO (08:08)
[2025-01-28] MEDS: chlorhexidine gluconate 0.12% Btl 473 mL 30 ML MUCOUS MEM ×2 (08:08→12:32)
[2025-01-28] MEDS: pantoprazole DR 40 mg Tablet PO (08:08)
[2025-01-28] MEDS: multivitamin therapeutic Tablet 1 TAB PO (08:08)
[2025-01-28] MEDS: oxyCODONE 5 mg IR Tab/Cap PO (09:05)
[2025-01-28 10:56] LABS: Glucose Point of Care 169 mg/dL (70-110)
--- NOTE | 2025-01-28 11:19 | PM.DCS ---
Discharge Providers Date of Admission: 01/23/25 12:51 Date of Discharge: January 28, 2025 Attending Provider at Admission: Louie Jolly MD Attending Provider at Discharge: Louie Jolly MD Primary Care Provider: Luis Burns MD Diagnoses at Discharge Discharge Diagnosis (1) Dehiscence of amputation stump of left lower extremity: Status: Acute (2) Diabetic peripheral neuropathy associated with type 2 diabetes mellitus: Status: Acute Reason for Visit Reason for Visit: foot wound sent from clinic Hospital Course Hospital Course David Honeycutt is a 69 year old male who with a past medical history of type 2 diabetes mellitus, history of right lower extremity transmetatarsal amputation, left foot/metatarsal amputation, with diabetic foot ulcer at the remaining foot/stump, who presents to [facility] for increased drainage from diabetic foot ulcer, increased pain, with complaints of fevers, chills. Currently patient alert oriented x 3, following all commands, reports fevers, chills, no nausea, no vomiting or abdominal pain, reports increased drainage from the left foot, diabetic ulcer, he saw Dr. Fajardo, today in clinic who recommended patient come to the hospital for concerns for infection, and the need for below-knee amputation, podiatry has been consulted, he is currently n.p.o., he did not have breakfast this morning Patient was admitted to [facility] for left foot stump diabetic foot infection with sepsis requiring IV antibiotics, evaluated by orthopedic team, patient underwent below-knee amputation, tolerated procedure well, will be discharged to half-way facility for rehab For his postoperative anemia, hemoglobin discharge 8.9, recheck hemoglobin in 24 hours Physical Exam Const: COMMON NORMALS: no acute distress and patient oriented x3 Resp: COMMON NORMALS: normal respiratory effort, No retractions, No use of accessory muscles and clear to auscultation bilaterally AUSCULTATION: clear to auscultation bilaterally Cardio: COMMON NORMALS: regular rate, regular rhythm, S1 normal heart sound present and S2 normal heart sound present RATE: regular rate RHYTHM: regular rhythm HEART SOUNDS: S1 normal heart sound present and S2 normal heart sound present GI: COMMON NORMALS: Normal to inspection, nondistended, normoactive bowel sounds present and non-tender Extremity: COMMON NORMALS: no pedal edema NARRATIVE EXTREMITY EXAM: Surgical site looks clean and dry, wrapped Neuro: COMMON NORMALS: patient oriented x3 Psych: COMMON NORMALS: mental status grossly normal Discharge Data Studies Completed and Pending Completed Studies During Hospitalization Category Date Time Status XR foot LT min 3V* 18501 Stat Exams 01/23/25 08:31 Completed XR tibia fibula LT 2V 23891 Routine Exams 01/23/25 15:27 Completed Pending at discharge Category Date Time Status Complete Blood Count w/Auto AM LABS Lab 01/29/25 04:00 Ordered Complete Blood Count w/Auto AM LABS Lab 01/30/25 04:00 Ordered Comprehensive Metabolic Panel AM LABS Lab 01/29/25 04:00 Ordered Comprehensive Metabolic Panel AM LABS Lab 01/30/25 04:00 Ordered Pathology: Surgical [PTH] Routine Pth 01/24/25 14:28 Received Radiology Impressions Foot X-Ray 01/23/25 08:31 IMPRESSION: 1. Osseous destruction of the anterior aspect of the cuboid suspicious for acute osteomyelitis. No other sign of bone destruction or fracture. 2. Soft tissue edema with ulceration and gas in the soft tissues as discussed above. Tibia/Fibula X-Ray 01/23/25 15:27 IMPRESSION: 1. Soft tissue air with soft tissue gas involving the foot suspicious for infection with gas-forming organism. Laboratory Results WBC 4.56 10^3/uL (3.29-11.43) 01/28/25 05:10 RBC 3.51 10^6/uL (3.85-5.65) L 01/28/25 05:10 Hgb 8.70 g/dL (11.27-16.99) L 01/28/25 05:10 Hct 29.2 % (37-53) L 01/28/25 05:10 MCV 83.2 fl (82-101) 01/28/25 05:10 MCH 24.8 pg (27-33) L 01/28/25 05:10 MCHC 29.8 g/dL (30-55) L 01/28/25 05:10 RDW 15.1 % (12.1-15.1) 01/28/25 05:10 Plt Count 357 10^3/cmm (157-399) 01/28/25 05:10 MPV 9.4 fL (7.4-10.4) 01/28/25 05:10 Neut % (Auto) 71.7 % 01/28/25 05:10 Lymph % (Auto) 19.1 % 01/28/25 05:10 Gregory % (Auto) 7.0 % 01/28/25 05:10 Eos % (Auto) 1.3 % 01/28/25 05:10 Baso % (Auto) 0.2 % 01/28/25 05:10 Neut # (Auto) 3.27 10^3/uL (1.8-7.7) 01/28/25 05:10 Lymph # (Auto) 0.9 10^3/uL (0.8-4.8) 01/28/25 05:10 Gregory # (Auto) 0.3 10^3/uL (0.2-0.9) 01/28/25 05:10 Eos # (Auto) 0.1 10^3/uL (0.0-0.8) 01/28/25 05:10 Baso # (Auto) 0.0 10^3/uL (0.0-0.1) 01/28/25 05:10 Nucleated RBC % (auto) 0 % 01/28/25 05:10 Nucleated RBCs # 0.0 /100WBC 01/28/25 05:10 Sodium 137 mmol/L (136-145) 01/28/25 05:10 Potassium 4.7 mmol/L (3.5-5.1) 01/28/25 05:10 Chloride 105 mmol/L (98-107) 01/28/25 05:10 Carbon Dioxide 24 mmol/L (22-29) 01/28/25 05:10 Anion Gap 12.7 (5-19) 01/28/25 05:10 BUN 18 mg/dL (8-23) 01/28/25 05:10 Creatinine 0.5 mg/dL (0.7-1.2) L 01/28/25 05:10 GFR Calculation 164.4 mL/min (90-130) H 01/28/25 05:10 Glucose 173 mg/dL (65-115) H 01/28/25 05:10 POC Glucose 169 mg/dL (70-110) H 01/28/25 10:52 Estimat Average Glucose 318 01/23/25 09:09 Hemoglobin A1c 12.7 % (4.0-6.0) H 01/23/25 09:09 Calculated Osmolality 290 mOsm/kg (285-295) 01/28/25 05:10 Lactic Acid 1.8 mmol/L (0.5-2.2) 01/23/25 09:09 Calcium 7.6 mg/dL (8.5-10.5) L 01/28/25 05:10 Phosphorus 3.2 mg/dL (2.5-4.5) 01/26/25 04:35 Magnesium 1.6 mg/dL (1.7-2.3) L 01/26/25 04:35 Total Bilirubin 0.2 mg/dL (0.15-1.2) 01/28/25 05:10 AST 20 U/L (0-40) 01/28/25 05:10 ALT 12 U/L (0-41) 01/28/25 05:10 Alkaline Phosphatase 79 U/L (40-130) 01/28/25 05:10 Total Protein 5.5 g/dL (6.6-8.7) L 01/28/25 05:10 Albumin 2.4 g/dL (3.5-5.2) L 01/28/25 05:10 Globulin 3.1 g/dL (1.3-4.6) 01/28/25 05:10 Triglycerides 134 mg/dL (0-150) 01/23/25 09:09 Cholesterol 98 mg/dL (0-200) 01/23/25 09:09 LDL Cholesterol, Calc 51 mg/dL (50-129) 01/23/25 09:09 HDL Cholesterol 20 mg/dL (60-100) L 01/23/25 09:09 LDL/HDL Ratio 2.55 RATIO (0.00-3.22) 01/23/25 09:09 Cholesterol/HDL Ratio 4.90 mg/dL (1.0-5.00) 01/23/25 09:09 TSH 5.97 uIU/mL (0.27-4.20) H 01/23/25 09:09 Blood Type B Negative 01/24/25 16:20 Rho(D) Type Rh negative 01/24/25 16:20 Antibody Screen Negative 01/24/25 16:20 Vitals Last Vital Signs Temp 98.8 F 01/28/25 08:00 Pulse 65 01/28/25 08:00 Resp 17 01/28/25 09:05 BP 134/73 01/28/25 08:00 Pulse Ox 96 01/28/25 08:00 O2 Del Method Room Air 01/28/25 08:00 O2 Flow Rate 6 01/24/25 15:09 Discharge Plan Discharge Patient Disposition: Home Condition: Stable Prescriptions: New oxycodone 5 mg Tablet 5 mg PO Q6H PRN (Reason: Moderate Pain) 5 Days Qty: 20 0RF insulin lispro [Humalog U-100 Insulin] 100 unit/mL Solution See Rx Instructions .ROUTE .COMPLEX Qty: 10 0RF Rx Instructions: Inject, subcut, 3 times daily, after meals, based on low-dose insulin sliding scale polyethylene glycol 3350 17 gram Powder In Packet 17 g PO DAILY PRN (Reason: constipation) 30 Days Qty: 30 0RF Changed insulin glargine [Lantus Solostar U-100 Insulin] 100 unit/mL (3 mL) insulin pen 10 unit SUBCUT DAILY Qty: 15 0RF Discontinued cephalexin 500 mg capsule 500 mg PO QID glipizide 10 mg tablet 10 mg PO BID Discharge Orders: Discharge Order (Routine); Ordered 01/28/25 Ordered By: Louie Jolly Other Ambulatory Orders: DME: [employer] (Order) Location: None Selected Ordered By: Louie Jolly Referrals: Mayur Saunders MD [Referring] - Sunny Farah DO [Physician] - Discharge Diet: Advance as tolerated Discharge Activity: Limit activity as instructed Patient Instructions: Acute Wound Care (DC), Opioid Safety, Post Anesthesia Care Activity Restrictions/Additional Instructions: Below the knee amputation postop Orthopedic discharge instructions: Keep dressing clean dry and intact Leave dressing on and in place until followup Only change if saturated Do not get dressing wet, if it does contact the office for a office visit to have it changed No baths or soaks Nonweightbearing to operative extremity Utilize crutches/walker/knee scooter as tolerated to continue with ambulation while maintaining restrictions Encourage knee range of motion as tolerated Ice and elevate as needed for pain and swelling Take pain medication as prescribed Take antinausea medication as needed Recommend aspirin 81 mg twice daily for blood clot prevention Supplement with Citracal/vitamin D for bone health and healing Take [id number] Colace as needed for constipation postoperatively Follow-up with Ortho in the office in 2 weeks Contact the office for any questions or concerns(i.e. fevers, increased drainage or redness around the incision site etc.) - Please follow-up with primary care provider - Recheck hemoglobin in 24 hours -Please monitor your blood sugars closely -Monitor your blood sugars 3 times daily as after meals -Please record your blood sugars, and a blood sugar log -For your Humalog -Please inject blood sugar after meals based on sliding scale provided -Do not inject insulin if you do not eat as hypoglycemia kills -This is a Humalog sliding scale -Insulin sliding ?fingerstick? Insulin ?141-180?0 units/sq 181-220?2 units/sq ?221-260?4 units/sq ?261-300 6 units/sq ?301-350?8 units/sq ?351-400 10 units/sq ?401-450?12 units/sq >450? 14units/sq -If your blood sugar is greater than 500 go to the emergency room -If your blood sugar is less than 60 or at anytime you feel lightheaded or dizzy or diaphoretic or have chest palpitations check your blood sugar, and eat a hard candy or drink orange juice and go immediately to the emergency room -Remember hypoglycemia kills, so if his blood sugar is less than 60 we have to increase it by taking in a sugary meal such as a hard candy or orange juice and go to the emergency room -If you have any questions please call us where here to help Discharge Attestations Time Spent in Discharge Care*: greater than 30 min Quality Metrics Clinical Quality Measures [ No reported AMI, CVA or VTE this stay] Coding Level of Care Code 88537 Total time (in minutes) for Discharge: 45 Diagnoses Dehiscence of amputation stump of left lower extremity T87.81 Diabetic peripheral neuropathy associated with type 2 diabetes mellitus E11.42
[2025-01-28] MEDS: acetaminophen 325 mg Tablet 650 MG PO (13:24)
== END 2025-01-28 14:00 | disposition skilled nursing facility (03) | DRG 854 ==
LOC: ER 08:47 → MEDSURG 12:51
PROVIDERS: Physician Assistant; Student in an Organized Health Care Education/Training Program; Admitting Provider Family Medicine; Emergency Provider Family Medicine; PCP Internal Medicine; Visit Provider Family Medicine
PROC: 0Y6J0Z3 Detachment at Left Lower Leg, Low, Open Approach (ICD-10-PCS; CPT 27880; principal; 2025-01-24 12:25)
DX: A41.9 Sepsis, unspecified organism (principal); D62 Acute posthemorrhagic anemia; L97.429 Non-pressure chronic ulcer of left heel and midfoot with unspecified severity; M86.672 Other chronic osteomyelitis, left ankle and foot; E11.69 Type 2 diabetes mellitus with other specified complication; E11.42 Type 2 diabetes mellitus with diabetic polyneuropathy; E11.51 Type 2 diabetes mellitus with diabetic peripheral angiopathy without gangrene; E11.621 Type 2 diabetes mellitus with foot ulcer; L97.522 Non-pressure chronic ulcer of other part of left foot with fat layer exposed; T87.81 Dehiscence of amputation stump; Z89.412 Acquired absence of left great toe; Z89.411 Acquired absence of right great toe; Z89.422 Acquired absence of other left toe(s); Z89.421 Acquired absence of other right toe(s); Z79.4 Long term (current) use of insulin
CPT/HCPCS: 36415; 36416; 73590; 73630; 80048; 80053; 80061; 82962; 83036; 83605; 83735; 84100; 84443; 85025; 86850; 86900; 87040; 88307; 88311; 94664; 96365; 96367; 96372; 97116; 97162; 97166; 97530; 99214; 99285; J0131; J0690; J1100; J1200; J1650; J1815; J1885; J2270; J2405; J2470; J2543; J2704; J2919; J3010; J3370; J7030; J7050; J9999

== ENCOUNTER → 2025-02-05 14:57 | Outpatient (BNVA) | payer MEDICARE, MEDICAID, SELFPAY | PROVIDERS: PCP Internal Medicine; Visit Provider Physician Assistant | DX: S88.112D Complete traumatic amputation at level between knee and ankle, left lower leg, subsequent encounter (principal); X58.XXXD Exposure to other specified factors, subsequent encounter; Z98.890 Other specified postprocedural states | CPT/HCPCS: 73560; 99024 ==

== ENCOUNTER → 2025-03-05 08:09 | Outpatient (BNVA) | payer MEDICARE, MEDICAID, SELFPAY | PROVIDERS: PCP Internal Medicine; Visit Provider Physician Assistant | DX: Z98.890 Other specified postprocedural states (principal); Z89.512 Acquired absence of left leg below knee | CPT/HCPCS: 99024 ==

== ENCOUNTER → 2025-05-01 09:46 | Outpatient (BNVA) | payer MEDICARE, MEDICAID, SELFPAY | PROVIDERS: PCP Internal Medicine; Visit Provider Internal Medicine | DX: E11.9 Type 2 diabetes mellitus without complications (principal); E03.9 Hypothyroidism, unspecified | CPT/HCPCS: 36415; 80053; 80061; 83036; 84439; 84443; 84681; 86337; 86341; 99204 ==

== ENCOUNTER 2025-06-25 10:44 | Outpatient (CLI) | payer MEDICARE, MEDICAID, SELFPAY ==
[2025-06-26 13:57] LABS: Thyroid Stimulating Hormone 5.04 uIU/mL (0.27-4.20)
[2025-06-26 14:23] LABS: Free T4 Free Thyroxine 1.12 ng/dL (0.82-1.77)
== END 2025-06-25 10:45 | disposition home or self-care (01) ==
PROVIDERS: PCP Internal Medicine; Visit Provider Internal Medicine
DX: E03.9 Hypothyroidism, unspecified (principal); E11.9 Type 2 diabetes mellitus without complications
CPT/HCPCS: 36415; 82947; 86341

== ENCOUNTER → 2025-06-26 11:37 | Outpatient (BNVA) | payer MEDICARE, MEDICAID, SELFPAY | PROVIDERS: PCP Internal Medicine; Visit Provider Internal Medicine | DX: E11.9 Type 2 diabetes mellitus without complications (principal); E03.9 Hypothyroidism, unspecified; Z79.4 Long term (current) use of insulin | CPT/HCPCS: 99214 ==